=== PATIENT | female | born 1950 | race Caucasian/White ===

== ENCOUNTER → 2018-05-22 17:00 | Outpatient (CLI) | payer MEDICARE, BC, SELFPAY ==
[2015-08-28 18:08] VITALS: BMI 49.9
--- NOTE | 2018-05-22 17:00 | LES_PTH ---
PATIENT: RAMON VELA LOC: [facility] U#:[id number] AGE/SX: 74/F ROOM: RE05/22/[address]: Dr. Gautam Horn MD : [id number] BED: DIS: SPEC #: [id number] RECD: 05/23/18 10:46 STATUS: BOBBY JONNA #: [id number] RAGHU: 05/22/18 17:[address]: Gautam Horn DEPT: SURGICAL PATHOLOGY RECD BY: Robert Gan ENTERED: 05/23/18 11:52 SP TYPE: Lesion OTHR DR: Dr. Liam Long III, MD Tissues: Skin of eyelid, NOS Procedures: Surgery Specimen Level IV HEADER OPERATION: Left lower lid lesion excision PRE-OP DIAGNOSIS: Rule out basal cell carcinoma TISSUE SUBMITTED: Left lower eyelid marginal lesion MICROSCOPIC DIAGNOSIS Lesion of left lower eyelid margin, biopsy: Basal cell carcinoma. Demodex follicularis. AM:beto 05/25/18 COMMENT The lesion appears to have been incompletely excised in the planes examined. Case has been reviewed in consultation with Dr. Clay who concurs with the above diagnosis. IDC:PAKO MICROSCOPIC DESCRIPTION Slides are reviewed. GROSS DESCRIPTION Received in fixative is one container labeled with the patient's name and designated left lower lid. The specimen consists of a piece of brown skin measuring 0.3 x 0.2 x 0.1 cm. The specimen is totally submitted in one cassette. / PAKO:beto 05/23/18 TC:0 CPT: 01425
== END ==
PROVIDERS: Family Provider Family Medicine; PCP Family Medicine; Referring Provider Ophthalmology; Visit Provider Ophthalmology
DX: L98.8 Other specified disorders of the skin and subcutaneous tissue (principal)
CPT/HCPCS: 88305

== ENCOUNTER 2021-05-01 13:34 | Inpatient (IN) | payer MEDICARE, BC, SELFPAY ==
[2021-05-01] VITALS (17 sets, daily range): BP systolic 124–183; BP diastolic 61–118; PULSE 74–92; RESP 12–20; TEMP 35.6–36.6; O2SAT 91–100; BMI 53.6; BMI 50.1; BMI 54.6
[2021-05-01 14:01] LABS: Bedside Glucose 18 mg/dL (70-110)
--- NOTE | 2021-05-01 14:08 | EX.ED.DYSGE1 ---
HPI History of Present Illness Chief Complaint: Hypoglycemia Narrative Narrative: Patient presents with reported mental status change, difficulty speaking, confusion, and symptoms of fatigue. Her friend states that she was on the phone with her at 930 this morning, and patient seemed very tired, and had difficulty finding words. She denies any headache. Of note, she is a diabetic who takes Metformin, glimepiride, and her new physician recently started her on Trulicity for blood sugars in the 200s to 400s. She states that she did feel like eating this morning and barely ate last night. Her sugars were in the 40s. Per RN, upon arrival to the ED, her blood glucose is 18 but she is awake and talking. [facility] Medical History (Updated 05/01/21 @ 16:[address] Shari Sharma DO) Diabetes Diabetic neuropathy Hypertension Morbid obesity Osteoarthritis Urinary incontinence Home Medications dulaglutide [Trulicity] 1.5 mg SUBCUT QWEEK 05/01/21 [History Last Taken Unknown] furosemide [Lasix] 20 mg PO DAILY 05/01/21 [History Last Taken Unknown] gabapentin 300 mg PO BID 05/01/21 [History Last Taken Unknown] glimepiride 4 mg PO BID 05/01/21 [History Last Taken Unknown] hydrochlorothiazide 25 mg PO DAILY 05/01/21 [History Last Taken Unknown] losartan 100 mg PO DAILY 05/01/21 [History Last Taken Unknown] meloxicam 15 mg PO DAILY 05/01/21 [History Last Taken Unknown] metformin 1,000 mg PO BID 05/01/21 [History Last Taken Unknown] metoprolol tartrate 50 mg PO DAILY 05/01/21 [History Last Taken Unknown] pioglitazone 45 mg PO DAILY 05/01/21 [History Last Taken Unknown] tolterodine 4 mg PO Q24H 05/01/21 [History Last Taken Unknown] Allergy/AdvReac Type Severity Reaction Status Date / Time latex Allergy Rash Verified 05/01/21 13:35 nickel [Nickel] Allergy Rash Verified 05/01/21 13:35 Family History (Updated 05/01/21 @ 16:[address] Shari Sharma DO) Other Diabetes Hypertension Social History (Updated 05/01/21 @ 16:[address] Shari Sharma DO) Smoking Status: Never smoker alcohol intake: current alcohol intake frequency: 0-2 drinks per day substance use type: does not use ROS ROS ED ROS Narrative Constitutional: No fever, no chills. Positive fatigue, positive tiredness. HEENT: No sore throat. No neck pain. No loss of vision. No rhinorrhea. Cardiovascular: No chest pain. No palpitations. No pedal edema. Respiratory: No cough, no shortness of breath. Abdominal: No abdominal pain. Positive nausea. No vomiting. Genitourinary: No dysuria. No hematuria. Urinary frequency. Musculoskeletal: No myalgias. No arthralgias. Neurologic: No headaches. No dizziness. No lightheadedness. Reported confusion. Skin: No rash. No change in color. Psychiatric: No depression. No anxiety. EXAM Physical Exam Narrative Exam Narrative: Afebrile. Vital signs noted. HEENT: Normocephalic. Atraumatic. PERRL, EOMI. Neck soft and supple. No point tenderness or step off. Cardiovascular: Regular rate and rhythm. No murmurs, rubs, or gallops appreciated. Respiratory: No tachypnea. Lungs clear to auscultation bilaterally. Gastrointestinal: Abdomen soft, nontender, with normoactive bowel sounds. No rebound or guarding. Neurological: Awake. Alert. Oriented x3. Nonfocal, nonlateralizing. Skin: No rash. Normal color. No pallor. Musculoskeletal: No pedal edema. Full range of motion extremities. Const Vital Signs: 05/01/21 13:36 05/01/21 14:01 05/01/21 14:18 Temperature 96.0 F L 97.0 F L Temperature Source Temporal Pulse Rate 74 Respiratory Rate 18 16 Respiratory Effort Normal Respiratory Pattern Normal Blood Pressure 164/74 H Blood Pressure Mean 104 Pulse Ox 100 Oxygen Delivery Method Room Air MDM MDM MDM Narrative Medical decision making narrative: I feel with the patient's addition of Trulicity, this is causing her hyperglycemia in addition to her oral medication. She states she last received Trulicity 2 days ago. She has normal white count of 9.4, hemoglobin 11.9, hematocrit 35.8. She has normal platelet count. Her CMP shows dehydration with a sodium of 128, chloride 88, potassium elevated at 5.9, but this may be secondary to her acute renal failure with a creatinine of 8.0. BUN is elevated at 81. Her fexzz-hh-[id number] glucose was 18. Her blood was drawn prior to administration of D50 and shows a glucose of 44. [id number] glucose after D50 is in the 70s. She was given a regular diet. Upon repeat examination, she remains awake and alert, and states that she had decreased urination yesterday while she usually has urinary frequency. Given her hyperkalemia, I obtained an EKG which demonstrates normal sinus rhythm at [address] changes. Patient was discussed with the hospitalist. Given her acute renal failure, dehydration, and mild hyperkalemia, she would like a Barros catheter placed and patient admitted to the ICU. She is in guarded but stable condition. Disposition is admit. Lab Data Attestation: I reviewed the patient's lab results. Labs: Laboratory Results - last 24 hr 05/01/21 05/01/21 05/01/21 13:33 13:33 13:48 WBC 9.4 RBC 4.08 L Hgb 11.9 L Hct 35.8 L MCV 87.7 MCH 29.2 MCHC 33.2 RDW Std Deviation 42.2 RDW Coeff of Raheel 13.2 Plt Count 199 MPV 10.3 Immature Gran % (Auto) 0.600 Neut % (Auto) 83.8 H Lymph % (Auto) 11.8 L [place] % (Auto) 3.2 Eos % (Auto) 0.4 Baso % (Auto) 0.2 Absolute Neuts (auto) 7.9 H Absolute Lymphs (auto) 1.11 Nucleated RBC % 0 Sodium 128 L Potassium 5.9 H Chloride 88 L Carbon Dioxide 26.0 Anion Gap 14 BUN 81 H Creatinine 8.02 H* Estim Creat Clear Calc 6.28 Est GFR (MDRD) Af Amer 6 L Est GFR (MDRD) Non-Af 5 L BUN/Creatinine Ratio 10.1 Glucose 44 L* Calcium 10.6 H Total Bilirubin 0.30 AST 16 ALT 24 Alkaline Phosphatase 87 Total Protein 7.7 Albumin 3.5 Globulin 4.2 Albumin/Globulin Ratio 0.8 L POC Glucose 18 L* 05/01/21 05/01/21 05/01/21 14:10 14:36 15:50 WBC RBC Hgb Hct MCV MCH MCHC RDW Std Deviation RDW Coeff of Raheel Plt Count MPV Immature Gran % (Auto) Neut % (Auto) Lymph % (Auto) [place] % (Auto) Eos % (Auto) Baso % (Auto) Absolute Neuts (auto) Absolute Lymphs (auto) Nucleated RBC % Sodium Potassium Chloride Carbon Dioxide Anion Gap BUN Creatinine Estim Creat Clear Calc Est GFR (MDRD) Af Amer Est GFR (MDRD) Non-Af BUN/Creatinine Ratio Glucose Calcium Total Bilirubin AST ALT Alkaline Phosphatase Total Protein Albumin Globulin Albumin/Globulin Ratio POC Glucose 69 L 70 62 L Radiography Diagnostic Testing: Clinical Impression(s) from Imaging Studies Renal Ultrasound 05/01/21 15:33 IMPRESSION: 1. Normal sonographic appearance of both kidneys without evidence of solid or cystic masses, calcifications or obstructive uropathy. 2. Bladder is not well visualized, Barros catheter in place and bladder is decompressed. 3. Incidental note of diffuse fatty infiltration of the liver consistent with hepatic steatosis. No ascites noted.. Electronically Signed: Jose G Vivar MD at 18:26 EST Tel , Service support , Critical Care Time Critical Care Time: Yes Critical care time (excluding procedures): 30-74 minutes (31), Including time spent:, Discussing w/Patient &/or Family/[employer], Discussing w/Consultants and Arranging Admission or Transfer Discharge Plan Dx/Rx/DC Orders Clinical Impression: Hypoglycemia associated with diabetes, Acute renal failure, Acute hyperkalemia Disposition Disposition: [facility] Discharge Date/Time: 05/01/21 16:45
[2021-05-01 14:20] LABS: Bedside Glucose 69 mg/dL (70-110)
[2021-05-01] MEDS: Dextrose 50%-Water 25 GM/50 ML DISP.SYRIN IV ×2 (14:21→16:14)
[2021-05-01 14:32] LABS: Absolute Lymphocyte Count 1.11 X10^3/uL (0.83-4.51); Absolute Neutrophil Count 7.9 X10^3/uL (2.0-7.7); Basophil# 0.02 X10^3/uL; Basophil% 0.2 % (0-1); Eosinophil# 0.04 X10^3/uL; Eosinophils% 0.4 % (0-5); Hematocrit 35.8 % (37-47); Hemoglobin 11.9 g/dL (12.0-15.0); Lymphocyte # 1.11 X10^3/ul (0.83-4.51); Lymphocyte % 11.8 % (19-41); Mean Corp Hgb Conc 33.2 g/dL (32-36); Mean Corpuscular Hgb 29.2 pg (27.0-32.0); Mean Corpuscular Volume 87.7 fL (81-99); Mean Platelet Vol. 10.3 fl (6.2-12.0); Monocyte% 3.2 % (0-10); NRBC Flagged by Analyzer 0 % (0-5); Neutrophil # 7.86 X10^3/uL (2.7-7.7); Neutrophil % 83.8 % (47-70); Platelet Count 199 K/mm3 (150-450); RBC Distribution Width CV 13.2 % (11.6-14.6); RBC Distribution Width SD 42.2 fl (35.1-43.9); Red Blood Count 4.08 M/mm3 (4.2-5.4); White Blood Count 9.4 K/mm3 (4.4-11.0)
[2021-05-01 14:41] LABS: Bedside Glucose 70 mg/dL (70-110)
[2021-05-01 14:49] LABS: ALB/GLOB Ratio 0.8 RATIO (0.9-2.4); AST(SGOT) 16 U/L (15-37); Alanine Aminotransfer ALT/SGPT 24 U/L (13-56); Albumin, Serum 3.5 g/dL (3.2-5.0); Alkaline Phosphatase 87 U/L (45-117); Anion Gap 14 (5-15); BUN 81 mg/dL (7-18); BUN/Creat Ratio 10.1 RATIO (10-20); Calcium,Total 10.6 mg/dL (8.5-10.1); Chloride 88 mmol/L (98-107); Creatinine, Serum 8.02 mg/dL (0.55-1.02); EST Glomerular Filtration Rate 5 mL/min (>60); Est Glom Filt Rate - Afr Amer 6 mL/min (>60); Estimated Creatinine Clearance 6.28 ml/min; Globulin 4.2 g/dL (2.2-4.2); Glucose 44 mg/dL (74-106); Potassium 5.9 mmol/L (3.5-5.1); Protein, Total 7.7 g/dL (6.4-8.2); Sodium Level 128 mmol/L (136-145)
--- NOTE | 2021-05-01 14:59 | EKG12_ITS ---
Test Reason : HYPOGLYCEMIA Blood Pressure : / mmHG Vent. Rate : 078 BPM Atrial Rate : 078 BPM P-R Int : 196 ms QRS Dur : 102 ms QT Int : 400 ms P-R-T Axes : 056 047 033 degrees QTc Int : 456 ms Normal sinus rhythm Normal ECG Confirmed by GELA GAMINO, TASHI ([id number]), editorial manager ADRIÁN MERCER ([id number]) on 05/04/2021 11:32:10 AM Referred By: TOMMY Confirmed By:TASHI REN MD
--- NOTE | 2021-05-01 15:33 | US_ITS ---
INDICATION: LUISA EXAMINATION: Ultrasound US Kidney(s) complete (eg, kidneys and bladder) TECHNIQUE: Spangler scale and color doppler images were obtained of the kidneys. COMPARISON: None. FINDINGS: RIGHT KIDNEY: RIGHT kidney measures 10.9 x 5.5 x 5.2 cm. There is no hydronephrosis. No shadowing calculus, focal lesion or perinephric collection is demonstrated. LEFT KIDNEY: LEFT kidney measures 12.2 x 4.9 x 6.1 cm. There is no hydronephrosis. No shadowing calculus, focal lesion or perinephric collection is demonstrated. URINARY BLADDER: Imaging bladder is not included. By technologist note, Barros catheter is in place and the bladder was decompressed. Ureteral jets were not reported. Other: Incidental note of diffuse fatty infiltration of the visualized liver. US/Kidney and Bladder IMPRESSION: 1. Normal sonographic appearance of both kidneys without evidence of solid or cystic masses, calcifications or obstructive uropathy. 2. Bladder is not well visualized, Barros catheter in place and bladder is decompressed. 3. Incidental note of diffuse fatty infiltration of the liver consistent with hepatic steatosis. No ascites noted.. Electronically Signed: Jose G Vivar MD at 18:26 EST Tel , Service support ,
--- NOTE | 2021-05-01 15:38 | PCM.HP.STD ---
HPI - General General Date of Admission: 05/01/21 Date of Service: 05/01/21 HPI Narrative RAMON VELA, is a 70 F who presented to the emergency department [facility] on 05/01/2021 with a chief complaint of hypoglycemia. Evidently this morning she was on the phone with a friend and she seemed very tired and had difficulty with word finding which is very atypical for her. The patient reports that yesterday she started having some blood sugar issues and noted she was in the 40s and had called her physician and some adjustments have been made but when her sugars were maintained in the 40s she decided to present to the emergency department. Her fingerstick blood sugar on arrival to the emergency department was 18 but she was awake and talking so I doubt that was an accurate test. Her BNP showed a serum blood sugar of 44 and she was given an amp of D50. This corrected her blood sugar into the 70s. Her vital signs in the emergency department were overall unremarkable other than elevated blood pressure with a measurement of 164/74. Her ECG is overall unremarkable other than some mild anemia. Her BMP however is quite abnormal with a sodium of 128, a potassium of 5.9, a chloride of 88, a BUN of 81, a creatinine of 8.02, a glucose of 44, and calcium of 10.6. Her liver functions are within normal limits. Her EKG shows some mild peaking diffusely. Her predominant complaints include mental status change, word finding difficulties, and fatigue along with her hypoglycemia. I called her primary care's office to ascertain what her baseline serum creatinine is as the patient tells me she has CKD stage III and her most recent serum creatinine from 04/06/2021 showed a baseline of 1.38. Her hemoglobin A1c on 03/30/2021 was 8.5. Given her severe kidney injury, need for frequent lab draw, and marked hypoglycemia she was admitted to the ICU for further care. [facility] Medical History (Updated 05/01/21 @ 16:[address] Shari Sharma DO) Diabetes Diabetic neuropathy Hypertension Morbid obesity Osteoarthritis Urinary incontinence Home Medications dulaglutide [Trulicity] 1.5 mg SUBCUT QWEEK 05/01/21 [History Last Taken Unknown] furosemide [Lasix] 20 mg PO DAILY 05/01/21 [History Last Taken Unknown] gabapentin 300 mg PO BID 05/01/21 [History Last Taken Unknown] glimepiride 4 mg PO BID 05/01/21 [History Last Taken Unknown] hydrochlorothiazide 25 mg PO DAILY 05/01/21 [History Last Taken Unknown] losartan 100 mg PO DAILY 05/01/21 [History Last Taken Unknown] meloxicam 15 mg PO DAILY 05/01/21 [History Last Taken Unknown] metformin 1,000 mg PO BID 05/01/21 [History Last Taken Unknown] metoprolol tartrate 50 mg PO DAILY 05/01/21 [History Last Taken Unknown] pioglitazone 45 mg PO DAILY 05/01/21 [History Last Taken Unknown] tolterodine 4 mg PO Q24H 05/01/21 [History Last Taken Unknown] Allergy/AdvReac Type Severity Reaction Status Date / Time latex Allergy Rash Verified 05/01/21 13:35 nickel [Nickel] Allergy Rash Verified 05/01/21 13:35 Family History (Updated 05/01/21 @ 16:[address] Shari Sharma DO) Other Diabetes Hypertension unable to obtain Social History (Updated 05/01/21 @ 16:[address] Shari Sharma DO) Smoking Status: Never smoker alcohol intake: current alcohol intake frequency: 0-2 drinks per day substance use type: does not use ROS Constitutional Constitutional: Reports anorexia, fatigue, malaise and weakness; Denies change in weight, chills, fever(s), night sweats or other Eyes Eyes: Denies blurry vision, change in eye color, change in vision, discharge from eye(s), double vision, erythema, eye pain, loss of vision or other ENT HEENT: Denies abnormal hearing, dysphagia, ear pain, epistaxis, headache(s), hearing loss, nasal congestion, nasal discharge, post nasal drip, sinus pressure, sore throat or other Cardiovascular Cardiovascular: Reports edema; Denies chest pain, claudication, dyspnea on exertion, lightheadedness, orthopnea, palpitations, paroxysmal nocturnal dyspnea, rapid heart rate, syncope or other Respiratory/Chest Respiratory/Chest: Denies cough, dyspnea, excessive phlegm production, hemoptysis, productive cough, shortness of breath at rest, shortness of breath with exertion, wheezing or other Gastrointestinal Gastrointestinal: Denies abdominal pain, coffee ground emesis, constipation, diarrhea, dyspepsia, hematemesis, hematochezia, loose stools, melena, nausea, vomiting or other Genitourinary Genitourinary: Reports urinary incontinence and other Details: Decreased urinary output ; Denies burning urination, difficulty urinating, dysuria, hematuria, nocturia, urinary frequency, urinary hesitancy or urinary urgency Musculoskeletal Musculoskeletal: Reports arthralgias, back pain, joint pain and joint stiffness; Denies joint swelling, myalgias, neck pain or other Neurologic Neurologic: Reports confusion; Denies abnormal gait, abnormal speech, disequilibrium, dizziness, focal weakness, headache(s), numbness, paresthesias, seizure-like activity, seizures, syncope, tingling, tremor(s) or other Psychiatric Psychiatric: Denies anxiety, depression, homicidal ideation, suicidal ideation or other Endocrine Endocrinology: Denies change in body appearance, cold intolerance, excessive sweating, heat intolerance, polydipsia, polyuria or other Hematologic/Lymphatic Hematologic/Lymphatic: Denies anemia, easy bleeding, easy bruising, lymphadenopathy or other Allergic/Immunologic Allergic/Immunologic: Denies rhinitis, hives, eczemia, asthma or other Vital Signs Vital Signs Vital Signs: 05/01/21 13:36 05/01/21 14:01 05/01/21 14:18 Temperature 96.0 F L 97.0 F L Temperature Source Temporal Pulse Rate 74 Respiratory Rate 18 16 Respiratory Effort Normal Respiratory Pattern Normal Blood Pressure 164/74 H Blood Pressure Mean 104 Pulse Ox 100 Oxygen Delivery Method Room Air Weight Weight: 141 kg Body Mass Index (BMI) 50.1 Physical Exam Const alert, oriented x3 and no apparent distress Constitutional Narrative: Morbidly obese white female lying in bed, appears comfortable but mildly confused, friend at bedside, nontoxic General Appearance: cooperative HEENT normocephalic, head/scalp atraumatic and hearing grossly normal bilaterally HEENT Narrative: Dry mucous membranes, Mallampati 2-3, no thrush, good dentition Eyes PERRL, EOMs intact bilaterally and conjunctivae normal Eyes Narrative: No scleral icterus Neck no lymphadenopathy, supple and no JVD Neck Narrative: Trachea midline, no thyroid enlargement Resp normal respiratory effort, no retractions, no use of accessory muscles and clear to auscultation bilaterally Auscultation: Negative for crackles, rales, rhonchi or wheezes Cardio regular rate, regular rhythm, S1 normal heart sound, S2 normal heart sound, no murmurs, no rub, no gallops, no clicks and no JVD Cardio Narrative: Distant secondary to body habitus GI normal to inspection, nondistended, normoactive bowel sounds, soft to palpation, non-tender and non-distended Extremity Extremity Narrative: Bilateral lower extremity 1+ pitting edema, no clubbing or cyanosis Peripheral Pulses: Yes pulses 2+ throughout Skin no rashes or lesions noted, no wounds, skin turgor normal, no jaundice, no petechiae and no mottling Skin Narrative: Skin is dry but no lesions Neuro oriented x3, CN's II-XII intact bilaterally, moves all extremities and no focal motor deficits Neuro Narrative: Mild confusion but oriented x3, generalized weakness with no focal deficit Sensorium / Orientation: awake and alert Speech: speech normal Psych Mood & Affect: anxious Results Lab / Micro Data Attestation: I reviewed the patient's lab results. Result Diagrams: 05/01/21 13:33 05/01/21 13:33 Labs: Laboratory Results - last 24 hr 05/01/21 13:33: WBC 9.4, RBC 4.08 L, Hgb 11.9 L, Hct 35.8 L, MCV 87.7, MCH 29.2, MCHC 33.2, RDW Std Deviation 42.2, RDW Coeff of Raheel 13.2, Plt Count 199, MPV 10.3, Immature Gran % (Auto) 0.600, Neut % (Auto) 83.8 H, Lymph % (Auto) 11.8 L, [place] % (Auto) 3.2, Eos % (Auto) 0.4, Baso % (Auto) 0.2, Absolute Neuts (auto) 7.9 H, Absolute Lymphs (auto) 1.11, Nucleated RBC % 0 05/01/21 13:33: Sodium 128 L, Potassium 5.9 H, Chloride 88 L, Carbon Dioxide 26.0, Anion Gap 14, BUN 81 H, Creatinine 8.02 H*, Estim Creat Clear Calc 6.28, Est GFR (MDRD) Af Amer 6 L, Est GFR (MDRD) Non-Af 5 L, BUN/Creatinine Ratio 10.1, Glucose 44 L*, Calcium 10.6 H, Total Bilirubin 0.30, AST 16, ALT 24, Alkaline Phosphatase 87, Total Protein 7.7, Albumin 3.5, Globulin 4.2, Albumin/Globulin Ratio 0.8 L 05/01/21 13:48: POC Glucose 18 L* 05/01/21 14:10: POC Glucose 69 L 05/01/21 14:36: POC Glucose 70 Assessment & Plan Assessment/Plan (1) Acute renal failure: (2) Metabolic encephalopathy: (3) Acute hyperkalemia: (4) Hypoglycemia associated with diabetes: (5) Hypercalcemia: PLAN: LUISA on CKD stage IIIb -Baseline serum creatinine per discussion with PCP office from 04/06/2021 was 1.38 -Current serum creatinine is 8.02 -Requested Barros placement in the emergency department -Normal saline at 150 cc/h along with D10 at 50 cc/h -Check renal ultrasound -Check urine sodium, urea, creatinine, eosinophils -Hold Lasix, meloxicam -Hold all diabetes meds -Renal diet ordered -Consult nephrology--> no current need for renal replacement therapy at this time Hyperkalemia -Mild EKG changes with peaked T waves -Patient was given dextrose -Give Kayexalate x1 dose -Repeat lab every 4 hours -Nephrology consult pending Metabolic encephalopathy -Likely related to uremia, gabapentin, and hypoglycemia -Hold offending agents and correct renal failure and blood sugar Hypoglycemia -Suspect this is related to multiple oral agents and severe LUISA -Hold all oral agents -Every 1 hour blood sugar checks -D10 at 50 cc/h -She has received treatment with 1.5 A of D50 in the emergency department -Once patient is stable with regards to blood sugar will wean dextrose and then reinitiate diabetic therapy -Carb controlled diet ordered Electrolyte abnormalities -Likely related to LUISA -Including hyponatremia, hypochloremia, and hypercalcemia -Every 4 hour lab Hypertension -Hold losartan -Hold Lasix -Continue mental wall -As needed hydralazine Uncontrolled DM-2 -Most recent hemoglobin A1c was 8.5 on 03/30/2021 -Given hypoglycemia no treatment at this time -Every hour blood sugar assessments -We will initiate sliding scale insulin once blood sugars have stabilized and the patient is off dextrose infusion Chronic pain -Hold meloxicam -Tylenol Morbid obesity -Recommend weight loss -Complicates overall treatment, prognosis, outcomes -Would recommend outpatient sleep study DVT prophylaxis -Heparin 3 times daily -SCDs CODE STATUS -Full code Charges/Coding Visit Charges Inpatient E&M: 67007 Init Hosp L3
[2021-05-01 15:55] LABS: Bedside Glucose 62 mg/dL (70-110)
[2021-05-01 16:12] LABS: Mucous, Urine 0 SEEN /hpf (<or=2+)
[2021-05-01 16:33] LABS: Urea Nitrogen, Urine 160 mg/dL (NO RANGE EST.); Urine Sodium 50 mmol/L (Not Establ.)
[2021-05-01 16:38] LABS: Color, Urine Yellow (Yellow); Glucose, Dipstick Normal (Normal); Ketone-Dipstick 5 mg/dl (Negative); Leukocyte Esterase-Dipstick 500 /ul (Negative); Nitrite-Dipstick Positive (Negative); Occult Blood-Urine 50 /ul (Negative); Protein-Dipstick 100 mg/dl (Negative); Urine Bilirubin Dipstick Negative (Negative); Urine Clarity Sl. Cloudy (Clear); Urine Urobilinogen Normal (Normal)
[2021-05-01 16:58] LABS: Bacteria 1+ /hpf (None Seen); Red Blood Cells-Urine 0-5 SEEN /hpf (0-5); Squamous Epithelial Cells - UA 10-25 SEEN /hpf (5-10); White Blood Cells 25-50 SEEN /hpf (0-5)
[2021-05-01] MEDS: 0.9% Normal Saline 1,000 ML 150 ML IV ×2 (17:03→23:03)
[2021-05-01] MEDS: Dextrose 10%-Water 250 ML 50 ML IV ×2 (17:04→22:04)
[2021-05-01 17:05] LABS: Bedside Glucose 78 mg/dL (70-110)
[2021-05-01] MEDS: Sodium Polystyrene Sulfonate 15 GM/60 ML UDC 30 GM PO (18:12)
[2021-05-01 18:16] LABS: Bedside Glucose 62 mg/dL (70-110)
[2021-05-01 19:21] LABS: Bedside Glucose 76 mg/dL (70-110)
[2021-05-01] MEDS: Heparin Injection (Vial) 5,000 UNIT/ML VIAL 5000 UNIT SC (21:10)
[2021-05-01 22:11] LABS: Bedside Glucose 99 mg/dL (70-110)
[2021-05-01 22:11] LABS: Bedside Glucose 77 mg/dL (70-110)
[2021-05-01] MEDS: Acetaminophen 325 MG Tablet 650 MG PO (23:01)
[2021-05-02] VITALS (25 sets, daily range): BP systolic 124–197; BP diastolic 60–114; PULSE 79–86; RESP 11–22; TEMP 36.6–37.5; O2SAT 79–99
[2021-05-02] MEDS: Lidocaine 5% Patch 2 PATCH TOPICAL ×2 (00:11→21:53)
[2021-05-02 00:20] LABS: Bedside Glucose 139 mg/dL (70-110)
[2021-05-02 00:20] LABS: Bedside Glucose 123 mg/dL (70-110)
[2021-05-02 00:59] LABS: Anion Gap 13 (5-15); BUN 85 mg/dL (7-18); BUN/Creat Ratio 10.2 RATIO (10-20); Calcium,Total 9.1 mg/dL (8.5-10.1); Chloride 90 mmol/L (98-107); Creatinine, Serum 8.31 mg/dL (0.55-1.02); EST Glomerular Filtration Rate 5 mL/min (>60); Estimated Creatinine Clearance 5.36 ml/min; Glucose 156 mg/dL (74-106); Sodium Level 127 mmol/L (136-145)
[2021-05-02 01:00] LABS: Est Glom Filt Rate - Afr Amer 6 mL/min (>60)
[2021-05-02] MEDS: Calcium Chloride 1 GM/10 ML Syringe IV (03:58)
[2021-05-02] MEDS: Sodium Polystyrene Sulfonate 15 GM/60 ML UDC 30 GM PO (03:58)
[2021-05-02] MEDS: Polyethylene Glycol 3350 17 GM PACKET 34 GM PO (03:59)
[2021-05-02 04:21] LABS: Absolute Lymphocyte Count 1.16 X10^3/uL (0.83-4.51); Absolute Neutrophil Count 5.6 X10^3/uL (2.0-7.7); Basophil# 0.02 X10^3/uL; Basophil% 0.3 % (0-1); Eosinophil# 0.08 X10^3/uL; Eosinophils% 1.1 % (0-5); Hematocrit 31.9 % (37-47); Hemoglobin 10.6 g/dL (12.0-15.0); Lymphocyte # 1.16 X10^3/ul (0.83-4.51); Lymphocyte % 15.6 % (19-41); Mean Corp Hgb Conc 33.2 g/dL (32-36); Mean Corpuscular Hgb 29.3 pg (27.0-32.0); Mean Corpuscular Volume 88.1 fL (81-99); Mean Platelet Vol. 9.5 fl (6.2-12.0); Monocyte# 0.52 X10^3/uL; NRBC Flagged by Analyzer 0 % (0-5); Neutrophil # 5.63 X10^3/uL (2.7-7.7); Neutrophil % 75.6 % (47-70); Platelet Count 177 K/mm3 (150-450); RBC Distribution Width CV 13.3 % (11.6-14.6); RBC Distribution Width SD 42.7 fl (35.1-43.9); Red Blood Count 3.62 M/mm3 (4.2-5.4); White Blood Count 7.4 K/mm3 (4.4-11.0)
[2021-05-02 04:39] LABS: Phosphorus 7.1 mg/dL (2.5-4.9)
[2021-05-02 04:59] LABS: ALB/GLOB Ratio 0.7 RATIO (0.9-2.4); AST(SGOT) 12 U/L (15-37); Alanine Aminotransfer ALT/SGPT 20 U/L (13-56); Albumin, Serum 2.8 g/dL (3.2-5.0); Alkaline Phosphatase 90 U/L (45-117); Anion Gap 15 (5-15); BUN 81 mg/dL (7-18); BUN/Creat Ratio 9.5 RATIO (10-20); Calcium,Total 8.7 mg/dL (8.5-10.1); Chloride 89 mmol/L (98-107); Creatinine, Serum 8.55 mg/dL (0.55-1.02); EST Glomerular Filtration Rate 5 mL/min (>60); Est Glom Filt Rate - Afr Amer 6 mL/min (>60); Estimated Creatinine Clearance 5.21 ml/min; Globulin 3.8 g/dL (2.2-4.2); Glucose 113 mg/dL (74-106); Potassium 5.4 mmol/L (3.5-5.1); Protein, Total 6.6 g/dL (6.4-8.2); Sodium Level 128 mmol/L (136-145); Thyroid Stim Hormone (TSH) 2.21 uIU/mL (0.358-3.74)
[2021-05-02] MEDS: Heparin Injection (Vial) 5,000 UNIT/ML VIAL 5000 UNIT SC ×3 (05:03→21:53)
[2021-05-02] MEDS: Labetalol (Prefilled) 20 MG/4 ML 10 MG IV (05:03)
[2021-05-02] MEDS: 0.9% Normal Saline 1,000 ML 150 ML IV (05:03)
[2021-05-02 08:36] LABS: Bedside Glucose 110 mg/dL (70-110)
[2021-05-02] MEDS: Ondansetron 4 MG/2 ML Vial IV (08:42)
[2021-05-02] MEDS: Acetaminophen 325 MG Tablet 650 MG PO ×3 (08:51→21:53)
[2021-05-02] MEDS: 0.9% Normal Saline 1,000 ML 75 ML IV (10:21)
[2021-05-02] MEDS: Tolterodine Tartrate 4 MG CAP.SA PO (10:22)
[2021-05-02] MEDS: Metoprolol(XL)Succ 50 MG Tablet PO (10:22)
[2021-05-02] MEDS: Ceftriaxone 1 GM/50 ML BAG IV (10:32)
[2021-05-02 10:41] LABS: Bedside Glucose 132 mg/dL (70-110)
--- NOTE | 2021-05-02 11:45 | CASEMGMT ---
GERSON ENGLISH Assessment: Face to Face with pt for initial transition planning/care coordination assessment. GERSON ENGLISH introduced self and role at [facility], pt voices understanding and consents to assessment. Pt is A/O x4 and answers all questions appropriately at this time. Pt sitting up in bed with O2 on with eyes closed throughout assessment in no distress. Care providers, pharmacy, and demographics verified/updated. Admitting Dx: acute renal failure PCP:Mary Specialists:Lisette, endocrinology in [place]; Pedro, cardio Preferred Pharmacy: [facility] [employer] [facility] Benef[facility]: yes LW/HPOA: Pt states she has a DPOA and it is her dtr Vidya Turk. She is aware that it is not on file at [facility] but may bring in at any time to be scanned into the chart. LNOK: Vidya Turk, dtr Living Arrangements: Pt lives alone in a single story house with a couple of steps to enter. Pt reports she is I in ADL's and denies concerns at home. Transportation: Pt drives self and denies concerns with transportation. DME/HHC/SNF: Pt has a cane and walker that she does not use. Pt currently is using crutches as she states she needs her knees replaced. Pt has a BGM. She states she has enough lancets and strips. Pt states she checks her blood sugar once a day but was told to increase to twice a day. Pt has had HHC in the past but is unsure what the name of the agency is. She denies SNF stays. Pt states no concerns with going home at time of dc. At this point in time, pt does not feel she needs any HHC or therapy but will see as she progresses. Pt states no further concerns/needs. CM to follow. Advised pt to ask CM if any further question/concerns/needs arise, voices understanding. Pt Goal: Home Plan: Home
[2021-05-02 12:20] LABS: Bedside Glucose 116 mg/dL (70-110)
[2021-05-02 12:26] LABS: Bedside Glucose 146 mg/dL (70-110)
[2021-05-02 14:26] LABS: Bedside Glucose 134 mg/dL (70-110)
--- NOTE | 2021-05-02 15:15 | PN.HOSP_ITS ---
Subjective Subjective Patient states she feels a little bit bloated today. She reports she slept okay overnight. No significant events overnight. And output is poor with a total of 475 cc since admission. Barros in place. Objective Data Objective Data Vital Signs: Vital Signs Temp Pulse Resp BP Pulse Ox 98.7 F 80 19 H 155/69 H 96 05/02/21 12:00 05/02/21 13:00 05/02/21 13:00 05/02/21 13:00 05/02/21 13:00 Oxygen Flow Rate (L/min) 2 Oxygen Delivery Method Nasal Cannula Weight: 143.9 kg Body Mass Index (BMI) 54.6 Intake & Output: Intake and Output for Last 24 Hours 04/30/21 05/01/21 05/02/21 23:59 23:59 23:59 Intake Total 1250 / 1350 1802.92 / 1802.92 Output Total 50 / 150 425 / 425 Balance 1200 / 1200 1377.92 / 1377.92 Lab / Micro Data Result Diagrams: 05/02/21 04:00 05/02/21 04:00 Labs: Laboratory Results - last 24 hr 05/01/21 15:50: POC Glucose 62 L 05/01/21 16:08: Urine Color Yellow, Urine Clarity Sl. Cloudy, Urine pH 7.0, Ur Specific [place] 1.010, Urine Protein 100 H, Urine Glucose (UA) Normal, Urine Ketones 5 H, Urine Occult Blood 50 H, Urine Nitrite Positive H, Urine Bilirubin Negative, Urine Urobilinogen Normal, Ur Leukocyte Esterase 500 H, Urine RBC 0-5 SEEN, Urine WBC 25-50 SEEN, Ur Squamous Epith Cells 10-25 SEEN, Urine Bacteria 1+, Urine Mucus 0 SEEN 05/01/21 16:08: Urine Color Cancelled, Urine Clarity Cancelled, Urine pH Cancelled, Ur Specific [place] Cancelled, U Specif Grav (Refrac) Cancelled, Urine Protein Cancelled, Urine Glucose (UA) Cancelled, Urine Ketones Cancelled, Urine Occult Blood Cancelled, Urine Nitrite Cancelled, Urine Bilirubin Cancelled, Urine Urobilinogen Cancelled, Ur Leukocyte Esterase Cancelled, Urine RBC Cancelled, Urine WBC Cancelled, Ur Squamous Epith Cells Cancelled, Ur Transition Epith Cell Cancelled, Ur Renal Epithelial Cell Cancelled, Calcium Oxalate Crystal Cancelled, Uric Acid Crystals Cancelled, Triple Phos Crystals Cancelled, Other Crystals Cancelled, Amorphous Sediment Cancelled, Urine Bacteria Cancelled, Hyaline Casts Cancelled, Fine Granular Casts Cancelled, Coarse Granular Casts Cancelled, Waxy Casts Cancelled, RBC Casts Cancelled, WBC Casts Cancelled, Urine Mucus Cancelled, Urine Trichomonas Cancelled, Urine Yeast Cancelled 05/01/21 16:08: Ur Random Sodium 50, Urine Creatinine 27.40, Urine Urea Nitrogen 160 05/01/21 17:02: POC Glucose 78 05/01/21 18:07: POC Glucose 62 L 05/01/21 19:15: POC Glucose 76 05/01/21 20:06: POC Glucose 77 05/01/21 21:12: POC Glucose 99 05/01/21 22:09: POC Glucose 123 H 05/01/21 23:05: POC Glucose 139 H 05/02/21 00:05: Sodium 127 L, Potassium 6.0 H*, Chloride 90 L, Carbon Dioxide 24.0, Anion Gap 13, BUN 85 H, Creatinine 8.31 H*, Estim Creat Clear Calc 5.36, Est GFR (MDRD) Af Amer 6 L, Est GFR (MDRD) Non-Af 5 L, BUN/Creatinine Ratio 10.2, Glucose 156 H, Calcium 9.1 05/02/21 02:04: POC Glucose 116 H 05/02/21 04:00: WBC 7.4, RBC 3.62 L, Hgb 10.6 L, Hct 31.9 L, MCV 88.1, MCH 29.3, MCHC 33.2, RDW Std Deviation 42.7, RDW Coeff of Raheel 13.3, Plt Count 177, MPV 9.5, Immature Gran % (Auto) 0.400, Neut % (Auto) 75.6 H, Lymph % (Auto) 15.6 L, [place] % (Auto) 7.0, Eos % (Auto) 1.1, Baso % (Auto) 0.3, Absolute Neuts (auto) 5.6, Absolute Lymphs (auto) 1.16, Nucleated RBC % 0 05/02/21 04:00: Sodium 128 L, Potassium 5.4 H, Chloride 89 L, Carbon Dioxide 24.0, Anion Gap 15, BUN 81 H, Creatinine 8.55 H*, Estim Creat Clear Calc 5.21, Est GFR (MDRD) Af Amer 6 L, Est GFR (MDRD) Non-Af 5 L, BUN/Creatinine Ratio 9.5 L, Glucose 113 H, Calcium 8.7, Magnesium 3.0 H, Total Bilirubin 0.30, AST 12 L, ALT 20, Alkaline Phosphatase 90, Total Protein 6.6, Albumin 2.8 L, Globulin 3.8, Albumin/Globulin Ratio 0.7 L, TSH 2.21 05/02/21 04:00: Phosphorus 7.1 H 05/02/21 08:23: POC Glucose 110 05/02/21 10:37: POC Glucose 132 H 05/02/21 12:20: POC Glucose 146 H 05/02/21 14:17: POC Glucose 134 H Micro: Microbiology 05/01/21 15:11 Nasal Secretion SARS-CoV-2 Antigen (Rapid) - Final Radiography Diagnostic Testing: Radiology Impression Renal Ultrasound 05/01/21 15:33 IMPRESSION: 1. Normal sonographic appearance of both kidneys without evidence of solid or cystic masses, calcifications or obstructive uropathy. 2. Bladder is not well visualized, Barros catheter in place and bladder is decompressed. 3. Incidental note of diffuse fatty infiltration of the liver consistent with hepatic steatosis. No ascites noted.. Electronically Signed: Jose G Vivar MD at 18:26 EST Tel , Service support , Physical Exam Const alert, oriented x3 and no apparent distress Constitutional Narrative: Morbidly obese white female lying in bed, appears comfortable less confusion, nontoxic General Appearance: cooperative Exam Limitations: no limitations Nutritional Appearance: morbidly obese HEENT normocephalic, head/scalp atraumatic, hearing grossly normal bilaterally and moist oral mucous membranes Head and Scalp: normocephalic Eyes PERRL, EOMs intact bilaterally and conjunctivae normal Eyes Narrative: No scleral icterus Neck no lymphadenopathy, supple and no JVD Neck Narrative: Trachea midline, no thyroid enlargement Resp normal respiratory effort, no retractions, no use of accessory muscles and clear to auscultation bilaterally Resp Narrative: Lungs remain clear Auscultation: Negative for crackles, rales, rhonchi or wheezes Cardio regular rate, regular rhythm, S1 normal heart sound, S2 normal heart sound, no murmurs, no rub, no gallops, no clicks and no JVD Cardio Narrative: Distant secondary to body habitus GI normal to inspection, nondistended, normoactive bowel sounds, soft to palpation, non-tender and non-distended Extremity Extremity Narrative: Bilateral lower extremity 1+ pitting edema, no clubbing or cyanosis Peripheral Pulses: Yes pulses 2+ throughout Skin no rashes or lesions noted, no wounds, skin turgor normal, no jaundice, no petechiae and no mottling Skin Narrative: Skin is dry but no lesions, Barros in place with little urine output Neuro oriented x3, CN's II-XII intact bilaterally, moves all extremities and no focal motor deficits Neuro Narrative: Confusion has improved Sensorium / Orientation: awake and alert Speech: speech normal Psych affect normal Assessment & Plan Assessment/Plan (1) Acute renal failure: (2) Metabolic encephalopathy: (3) Acute hyperkalemia: (4) Hypoglycemia associated with diabetes: (5) Hypercalcemia: PLAN: LUISA on CKD stage IIIb secondary to ATN -Patient is currently only [place] -Baseline serum creatinine per discussion with PCP office from 04/06/2021 was 1.38 -Despite hydration with IV fluids at 150 cc/h and D10 at 50 cc/h serum creatinine has trended up slightly -Continue Barros -Decrease IV fluids to 75 cc/h from 150 cc/h -Renal ultrasound shows normal bilateral kidneys -Fe urea is consistent with intrinsic renal issues at 57.8% -Hold Lasix, meloxicam -Hold all diabetes meds -Renal diet ordered -Awaiting nephrology input Hyperkalemia -Mild EKG changes with peaked T waves in admission -Give Kayexalate x1 dose--> repeat dose again today -Trending down--> 5.9-6.0-5.4 -Repeat BMP in a.m. -Nephrology consult pending Metabolic encephalopathy -Likely related to uremia, gabapentin, and hypoglycemia -Has resolved Hypoglycemia -Suspect this is related to multiple oral agents and severe LUISA -Resolved -D5 10 was discontinued around midnight -Blood sugars are holding steady without any intervention in the 110-150 range -Once blood sugars trending greater than 180 will start sliding scale -Continue Accu-Cheks as ordered Possible UTI -UA is suggestive of possible urinary tract infection with positive le ukoesterase, nitrites, white cells and 1+ bacteria -We will start ceftriaxone and check urine culture Electrolyte abnormalities -Likely related to LUISA -Electrolytes have remained stable -Including hyponatremia, hypochloremia, and hypercalcemia -Repeat BMP in a.m. Hepatic steatosis -This was noted on ultrasound of kidneys -Likely related to metabolic dysfunction -Will need improved control of diabetes and cholesterol -Would recommend consideration for outpatient gastric bypass evaluation Hypertension -Hold losartan -Hold Lasix -Add Norvasc 10 mg -As needed hydralazine Uncontrolled DM-2 -Most recent hemoglobin A1c was 8.5 on 03/30/2021 -Given hypoglycemia no treatment at this time -Every 4 hour blood sugar checks -We will initiate sliding scale insulin once blood sugars are greater than 170 -Currently 1 10-1 40 Chronic pain -Hold meloxicam -Tylenol Morbid obesity -Recommend weight loss -Complicates overall treatment, prognosis, outcomes -Would recommend outpatient sleep study as patient has had hypoxic issues at night and while napping -We will discussed with patient eventual follow-up for potential bariatric intervention DVT prophylaxis -Heparin 3 times daily -SCDs CODE STATUS -Full code Charges/Coding Visit Charges Inpatient E&M: 82893 Init Hosp L3
--- NOTE | 2021-05-02 16:21 | CON.PCM.RE_ITS ---
Assessment & Plan Assessment/Plan (1) Acute renal failure: PLAN: Baseline creatinine prior to admission was around 1.3. Sustained renal failure. Apparently she had poor appetite, continuous nausea for the last 10 days. Admitted with severe hypoglycemia. Possibly dehydration. She was also on Lasix at home which might have contributed. Renal ultrasound is not impressive. Urine analysis does show some cells but this is an oliguric sample. Clinically looks dry. Continue fluids for today. Urine output is somewhat better today, has already made about 450 cc since 7 AM. Hold off dialysis for today. (2) Acute hyperkalemia: PLAN: Due to LUISA. Received medical treatment. Potassium is borderline at 5.4. Will monitor for now Hyponatremia. Possibly hypovolemic. Asymptomatic. Fluid resuscitation for now. HPI Consult Data Date of Consult: 05/02/21 HPI Narrative HPI Narrative: 70 y o female patient admitted to hospital with complaints of weakness. Nephrology consulted for acute renal failure. She has known history of type 2 diabetes which was not very well controlled. Was recently started on Trulicity. This resulted in significant nausea and poor intake for the last 10 days. Yesterday she presented to the emergency room with generalized weakness. Was found to have significant hypoglycemia. Received multiple dextrose infusions. Her baseline creatinine is around 1.3. She has likely from diabetes. Presented with a creatinine of 8.0, slightly higher today. There is meloxicam listed in her medication list but she tells me that she was not taking it regularly. Denies any past history of kidney stones, urine infections. Medication list also has Metformin. No other changes to medications. No recent contrast. [facility] Medical History (Updated 05/01/21 @ 16:[address] Shari Sharma DO) Diabetes Diabetic neuropathy Hypertension Morbid obesity Osteoarthritis Urinary incontinence Home Medications dulaglutide [Trulicity] 1.5 mg SUBCUT QWEEK 05/01/21 [History Last Taken Unknown] furosemide [Lasix] 20 mg PO DAILY 05/01/21 [History Last Taken Unknown] gabapentin 300 mg PO BID 05/01/21 [History Last Taken Unknown] glimepiride 4 mg PO BID 05/01/21 [History Last Taken Unknown] hydrochlorothiazide 25 mg PO DAILY 05/01/21 [History Last Taken Unknown] losartan 100 mg PO DAILY 05/01/21 [History Last Taken Unknown] meloxicam 15 mg PO DAILY 05/01/21 [History Last Taken Unknown] metformin 1,000 mg PO BID 05/01/21 [History Last Taken Unknown] metoprolol tartrate 50 mg PO DAILY 05/01/21 [History Last Taken Unknown] pioglitazone 45 mg PO DAILY 05/01/21 [History Last Taken Unknown] tolterodine 4 mg PO Q24H 05/01/21 [History Last Taken Unknown] Allergy/AdvReac Type Severity Reaction Status Date / Time latex Allergy Rash Verified 05/01/21 13:35 nickel [Nickel] Allergy Rash Verified 05/01/21 13:35 Family History (Updated 05/01/21 @ 16:[address] Shari Sharma DO) Other Diabetes Hypertension Surgical History unable to obtain Social History (Updated 05/01/21 @ 16:[address] Shari Sharma DO) Smoking Status: Never smoker alcohol intake: current alcohol intake frequency: 0-2 drinks per day substance use type: does not use ROS ROS Narrative negative except HPI Physical Exam Narrative Alert awake oriented x 3 no obvious distress no pallor no icterus no JVD s1s2 no murmurs lungs clear abdomen soft no organomegaly no edema no cyanosis garcia + Lab / Micro Data Result Diagrams: 05/02/21 04:00 05/02/21 04:00 Labs: Laboratory Results - last 24 hr 05/01/21 16:08: Urine Color Yellow, Urine Clarity Sl. Cloudy, Urine pH 7.0, Ur Specific [place] 1.010, Urine Protein 100 H, Urine Glucose (UA) Normal, Urine Ketones 5 H, Urine Occult Blood 50 H, Urine Nitrite Positive H, Urine Bilirubin Negative, Urine Urobilinogen Normal, Ur Leukocyte Esterase 500 H, Urine RBC 0-5 SEEN, Urine WBC 25-50 SEEN, Ur Squamous Epith Cells 10-25 SEEN, Urine Bacteria 1+, Urine Mucus 0 SEEN 05/01/21 16:08: Ur Random Sodium 50, Urine Creatinine 27.40, Urine Urea Nitrogen 160 05/01/21 17:02: POC Glucose 78 05/01/21 18:07: POC Glucose 62 L 05/01/21 19:15: POC Glucose 76 05/01/21 20:06: POC Glucose 77 05/01/21 21:12: POC Glucose 99 05/01/21 22:09: POC Glucose 123 H 05/01/21 23:05: POC Glucose 139 H 05/02/21 00:05: Sodium 127 L, Potassium 6.0 H*, Chloride 90 L, Carbon Dioxide 24.0, Anion Gap 13, BUN 85 H, Creatinine 8.31 H*, Estim Creat Clear Calc 5.36, Est GFR (MDRD) Af Amer 6 L, Est GFR (MDRD) Non-Af 5 L, BUN/Creatinine Ratio 10.2, Glucose 156 H, Calcium 9.1 05/02/21 02:04: POC Glucose 116 H 05/02/21 04:00: WBC 7.4, RBC 3.62 L, Hgb 10.6 L, Hct 31.9 L, MCV 88.1, MCH 29.3, MCHC 33.2, RDW Std Deviation 42.7, RDW Coeff of Raheel 13.3, Plt Count 177, MPV 9.5, Immature Gran % (Auto) 0.400, Neut % (Auto) 75.6 H, Lymph % (Auto) 15.6 L, [place] % (Auto) 7.0, Eos % (Auto) 1.1, Baso % (Auto) 0.3, Absolute Neuts (auto) 5.6, Absolute Lymphs (auto) 1.16, Nucleated RBC % 0 05/02/21 04:00: Sodium 128 L, Potassium 5.4 H, Chloride 89 L, Carbon Dioxide 24.0, Anion Gap 15, BUN 81 H, Creatinine 8.55 H*, Estim Creat Clear Calc 5.21, Est GFR (MDRD) Af Amer 6 L, Est GFR (MDRD) Non-Af 5 L, BUN/Creatinine Ratio 9.5 L, Glucose 113 H, Calcium 8.7, Magnesium 3.0 H, Total Bilirubin 0.30, AST 12 L, ALT 20, Alkaline Phosphatase 90, Total Protein 6.6, Albumin 2.8 L, Globulin 3.8, Albumin/Globulin Ratio 0.7 L, TSH 2.21 05/02/21 04:00: Phosphorus 7.1 H 05/02/21 08:23: POC Glucose 110 05/02/21 10:37: POC Glucose 132 H 05/02/21 12:20: POC Glucose 146 H 05/02/21 14:17: POC Glucose 134 H Micro: Microbiology 05/01/21 15:11 Nasal Secretion SARS-CoV-2 Antigen (Rapid) - Final Radiology Impression Renal Ultrasound 05/01/21 15:33 IMPRESSION: 1. Normal sonographic appearance of both kidneys without evidence of solid or cystic masses, calcifications or obstructive uropathy. 2. Bladder is not well visualized, Garcia catheter in place and bladder is decompressed. 3. Incidental note of diffuse fatty infiltration of the liver consistent with hepatic steatosis. No ascites noted.. Electronically Signed: Jose G Vivar MD at 18:26 EST Tel , Service support ,
[2021-05-02] MEDS: amLODIPine 10 MG Tablet PO (16:42)
[2021-05-02] MEDS: Sodium Polystyrene Sulfonate 15 GM/60 ML UDC PO (16:42)
[2021-05-02 18:30] LABS: Bedside Glucose 113 mg/dL (70-110)
[2021-05-03] VITALS (10 sets, daily range): BP systolic 115–139; BP diastolic 63–76; PULSE 74–97; RESP 16–18; TEMP 36.6–37.2; O2SAT 96–98
[2021-05-03] MEDS: 0.9% Normal Saline 1,000 ML 75 ML IV ×2 (00:06→11:53)
[2021-05-03 00:17] LABS: Bedside Glucose 133 mg/dL (70-110)
[2021-05-03 01:06] LABS: Bedside Glucose 125 mg/dL (70-110)
[2021-05-03] MEDS: Heparin Injection (Vial) 5,000 UNIT/ML VIAL 5000 UNIT SC ×3 (06:11→20:15)
[2021-05-03 06:46] LABS: Bedside Glucose 72 mg/dL (70-110)
[2021-05-03 07:17] LABS: Anion Gap 11 (5-15); BUN 86 mg/dL (7-18); BUN/Creat Ratio 9.6 RATIO (10-20); Calcium,Total 8.2 mg/dL (8.5-10.1); Chloride 94 mmol/L (98-107); Creatinine, Serum 8.99 mg/dL (0.55-1.02); EST Glomerular Filtration Rate 5 mL/min (>60); Est Glom Filt Rate - Afr Amer 6 mL/min (>60); Estimated Creatinine Clearance 4.95 ml/min; Glucose 83 mg/dL (74-106); Magnesium 2.8 mg/dL (1.6-2.6); Phosphorus 8.7 mg/dL (2.5-4.9); Potassium 4.5 mmol/L (3.5-5.1); Sodium Level 130 mmol/L (136-145)
--- NOTE | 2021-05-03 07:32 | NURSING ---
all documentation completed by Christine VILCHIS reviewed by this RN
[2021-05-03] MEDS: Metoprolol(XL)Succ 50 MG Tablet PO (10:11)
[2021-05-03] MEDS: amLODIPine 10 MG Tablet PO (10:11)
[2021-05-03] MEDS: Tolterodine Tartrate 4 MG CAP.SA PO (10:12)
[2021-05-03] MEDS: Lidocaine 5% Patch 1 PATCH TOPICAL (10:16)
[2021-05-03] MEDS: Ceftriaxone 1 GM/50 ML BAG IV (10:51)
[2021-05-03 12:36] LABS: Bedside Glucose 155 mg/dL (70-110)
--- NOTE | 2021-05-03 14:37 | PN.HOSP_ITS ---
Subjective Subjective She states she is feeling okay. She is having issues with her chronic pain which is related to osteoarthritis but her urine output has picked up and her confusion has resolved. She remains off dextrose at this time and blood sugars are 113-155. We did discuss her weight and possible bariatric referral she is hesitant to go the surgical route would but seems to be very interested in any medical therapy with exercise and diet changes. We discussed that it would be more of a lifestyle change and overall revamping of the way she looks at food and exercise and she is in agreement. We did discuss the fact that her CT of her chest showed hepatic steatosis and what that means for her future and the etiologies and pathophysiology of that. She had several good questions and we discussed everything thoroughly and she seemed to have good understanding of what is going on. Objective Data Objective Data Vital Signs: Vital Signs Temp Pulse Resp BP Pulse Ox 98.9 F 83 18 115/70 98 05/03/21 10:00 05/03/21 12:00 05/03/21 10:00 05/03/21 10:11 05/03/21 10:00 Oxygen Flow Rate (L/min) 2 Oxygen Delivery Method Nasal Cannula Weight: 143.9 kg Body Mass Index (BMI) 54.6 Intake & Output: Intake and Output for Last 24 Hours 05/01/21 05/02/21 05/03/21 23:59 23:59 23:59 Intake Total 1250 / 1350 1802.92 / 1802.92 2362.50 / 2362.50 Output Total 50 / 150 825 / 1525 2150 / 2150 Balance 1200 / 1200 977.92 / 277.92 212.50 / 212.50 Lab / Micro Data Result Diagrams: 05/02/21 04:00 05/03/21 06:30 Labs: Laboratory Results - last 24 hr 05/02/21 16:38: POC Glucose 125 H 05/02/21 18:25: POC Glucose 113 H 05/03/21 00:03: POC Glucose 133 H 05/03/21 06:06: POC Glucose 72 05/03/21 06:30: Sodium 130 L, Potassium 4.5, Chloride 94 L, Carbon Dioxide 25.0, Anion Gap 11, BUN 86 H, Creatinine 8.99 H*, Estim Creat Clear Calc 4.95, Est GFR (MDRD) Af Amer 6 L, Est GFR (MDRD) Non-Af 5 L, BUN/Creatinine Ratio 9.6 L, Glucose 83, Calcium 8.2 L, Phosphorus 8.7 H, Magnesium 2.8 H 05/03/21 12:27: POC Glucose 155 H Micro: Microbiology 05/02/21 10:15 Urine Catheter - Barros Urine Culture - Preliminary GNR 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 teacher Gram negative trista 05/01/21 15:11 Nasal Secretion SARS-CoV-2 Antigen (Rapid) - Final Physical Exam Const alert, oriented x3 and no apparent distress Constitutional Narrative: Morbidly obese white female sitting up in chair at the bedside, appears comfortable, mental status is back to baseline, nontoxic General Appearance: cooperative Exam Limitations: no limitations Nutritional Appearance: morbidly obese HEENT normocephalic, head/scalp atraumatic, hearing grossly normal bilaterally and moist oral mucous membranes HEENT Narrative: Mallampati is 3-4, no thrush Head and Scalp: normocephalic Resp normal respiratory effort, no retractions, no use of accessory muscles and clear to auscultation bilaterally Resp Narrative: Lungs remain clear Auscultation: Negative for crackles, rales, rhonchi or wheezes Cardio regular rate, regular rhythm, S1 normal heart sound, S2 normal heart sound, no murmurs, no rub, no gallops, no clicks and no JVD Cardio Narrative: Distant secondary to body habitus GI normal to inspection, nondistended, normoactive bowel sounds, soft to palpation, non-tender and non-distended Extremity no clubbing, cyanosis or edema Peripheral Pulses: Yes pulses 2+ throughout Neuro oriented x3, moves all extremities and no focal motor deficits Neuro Narrative: Confusion has improved Sensorium / Orientation: awake and alert Speech: speech normal Assessment & Plan Assessment/Plan (1) Acute renal failure: (2) Metabolic encephalopathy: (3) Acute hyperkalemia: (4) Hypoglycemia associated with diabetes: (5) Hypercalcemia: PLAN: LUISA on CKD stage IIIb secondary to ATN -Nonoliguria -Baseline serum creatinine per discussion with PCP office from 04/06/2021 was 1.38 -Serum creatinine at 8.99 -Continue Barros--> try to discontinue tomorrow -Urine output has increased significantly and patient has had over 2-1/2 L out in the last 24 hours -Increase IV fluids to normal saline at 150 cc/h as I do anticipate that the patient probably is experiencing some post ATN diuresis -Renal ultrasound shows normal bilateral kidneys -Fe urea is consistent with intrinsic renal issues at 57.8% -Hold Lasix, meloxicam -Hold all diabetes meds -Renal diet ordered -Nephrology is following Hyperkalemia -Resolved Metabolic encephalopathy -Likely related to uremia, gabapentin, and hypoglycemia -Has resolved Hypoglycemia -Suspect this is related to multiple oral agents and severe LUISA -Resolved -D5 10 was discontinued around midnight -Blood sugars are holding steady without any intervention in the 110-150 range -Once blood sugars trending greater than 180 will start sliding scale -Continue Accu-Cheks as ordered Acute urinary tract infection -Urine culture is showing gram-negative rods/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 teacher -It appears to organisms are present -Continue ceftriaxone at this time and continue to monitor culture for sensitivities and identification Electrolyte abnormalities -All electrolyte abnormalities are improving -Repeat a.m. lab Hepatic steatosis -This was noted on ultrasound of kidneys -Likely related to metabolic dysfunction -Will need improved control of diabetes and cholesterol -Would recommend consideration for outpatient gastric bypass evaluation -Discussed bariatric intervention with the patient today she is reluctant to undergo bariatric surgery but is very much interested in lifestyle changes that include dietary and exercise changes. Hypertension -Hold losartan -Hold Lasix -Continue Norvasc 10 mg as blood pressures are normalized -As needed hydralazine Uncontrolled DM-2 -Most recent hemoglobin A1c was 8.5 on 03/30/2021 -Given hypoglycemia no treatment at this time -Every 4 hour blood sugar checks -We will initiate sliding scale insulin once blood sugars are greater than 170 -Currently 100-1 50 Chronic pain -Hold meloxicam -Tylenol -Lidocaine patches Morbid obesity -Recommend weight loss -Complicates overall treatment, prognosis, outcomes -Outpatient sleep study referral has been placed in discharge paperwork -I have discussed bariatric intervention and she would like to follow-up for nonsurgical intervention if possible after discharge DVT prophylaxis -Heparin 3 times daily -SCDs CODE STATUS -Full code Charges/Coding Visit Charges Inpatient E&M: 22106 Subs Hosp L2
[2021-05-03 17:06] LABS: Bedside Glucose 172 mg/dL (70-110)
--- NOTE | 2021-05-03 18:45 | PCM.PN.REN ---
Subjective Subjective no new complaints Objective Data Objective Data Vital Signs: Vital Signs Temp Pulse Resp BP Pulse Ox 97.9 F 97 16 125/72 H 98 05/03/21 16:30 05/03/21 16:30 05/03/21 16:30 05/03/21 16:30 05/03/21 16:30 Oxygen Flow Rate (L/min) 2 Oxygen Delivery Method Nasal Cannula Weight: 143.9 kg Body Mass Index (BMI) 54.6 Intake & Output: Intake and Output for Last 24 Hours 05/01/21 05/02/21 05/03/21 23:59 23:59 23:59 Intake Total 1250 / 1350 1802.92 / 1802.92 2855.00 / 2855.00 Output Total 50 / 150 825 / 1525 5100 / 5100 Balance 1200 / 1200 977.92 / 277.92 -2245.00 / -2245.00 Lab / Micro Data Result Diagrams: 05/02/21 04:00 05/03/21 06:30 Labs: Laboratory Results - last 24 hr 05/02/21 16:38: POC Glucose 125 H 05/03/21 00:03: POC Glucose 133 H 05/03/21 06:06: POC Glucose 72 05/03/21 06:30: Sodium 130 L, Potassium 4.5, Chloride 94 L, Carbon Dioxide 25.0, Anion Gap 11, BUN 86 H, Creatinine 8.99 H*, Estim Creat Clear Calc 4.95, Est GFR (MDRD) Af Amer 6 L, Est GFR (MDRD) Non-Af 5 L, BUN/Creatinine Ratio 9.6 L, Glucose 83, Calcium 8.2 L, Phosphorus 8.7 H, Magnesium 2.8 H 05/03/21 12:27: POC Glucose 155 H 05/03/21 16:56: POC Glucose 172 H Micro: Microbiology 05/02/21 10:15 Urine Catheter - Garcia Urine Culture - Preliminary GNR lactose reinforcement maker Gram negative trista 05/01/21 15:11 Nasal Secretion SARS-CoV-2 Antigen (Rapid) - Final Physical Exam Narrative Alert awake oriented x 3 no obvious distress no pallor no icterus no JVD s1s2 no murmurs lungs clear abdomen soft no organomegaly no edema no cyanosis garcia + Assessment & Plan Assessment/Plan (1) Acute renal failure: PLAN: Baseline creatinine prior to admission was around 1.3. Sustained renal failure. Apparently she had poor appetite, continuous nausea for the last 10 days. Admitted with severe hypoglycemia. Possibly dehydration. She was also on Lasix at home which might have contributed. Renal ultrasound is not impressive. Urine analysis does show some cells but this is an oliguric sample. urine output better. likely ATN. reviewed data from [facility]. she developed hypercalcemia last month. SPEP negative. PTH low. PTH rp low. she was asked to stop calcium and HCTZ. calcium is now better. (2) Acute hyperkalemia: PLAN: Due to LUISA. Received medical treatment. better Hyponatremia. Possibly hypovolemic. better.
[2021-05-03] MEDS: Lidocaine 5% Patch 2 PATCH TOPICAL (20:16)
[2021-05-03] MEDS: Acetaminophen 325 MG Tablet 650 MG PO (20:19)
[2021-05-03] MEDS: 0.9% Normal Saline 1,000 ML 150 ML IV (20:33)
[2021-05-04] VITALS (14 sets, daily range): BP systolic 136–188; BP diastolic 63–88; PULSE 78–89; RESP 18–20; TEMP 36.6–37.3; O2SAT 97–100
[2021-05-04 00:50] LABS: Bedside Glucose 222 mg/dL (70-110)
[2021-05-04] MEDS: Acetaminophen 325 MG Tablet 650 MG PO ×4 (02:06→23:42)
[2021-05-04] MEDS: 0.9% Normal Saline 1,000 ML 150 ML IV ×4 (03:38→23:46)
[2021-05-04] MEDS: Heparin Injection (Vial) 5,000 UNIT/ML VIAL 5000 UNIT SC ×3 (06:05→21:34)
[2021-05-04 06:25] LABS: Bedside Glucose 127 mg/dL (70-110)
[2021-05-04 07:21] LABS: Absolute Neutrophil Count 4.7 X10^3/uL (2.0-7.7); Basophil# 0.04 X10^3/uL; Basophil% 0.6 % (0-1); Eosinophil# 0.17 X10^3/uL; Eosinophils% 2.7 % (0-5); Hematocrit 29.7 % (37-47); Hemoglobin 9.8 g/dL (12.0-15.0); Lymphocyte % 12.9 % (19-41); Mean Corpuscular Hgb 29.4 pg (27.0-32.0); Mean Corpuscular Volume 89.2 fL (81-99); Mean Platelet Vol. 10.2 fl (6.2-12.0); Monocyte% 8.1 % (0-10); NRBC Flagged by Analyzer 0 % (0-5); Neutrophil # 4.67 X10^3/uL (2.7-7.7); Neutrophil % 75.4 % (47-70); Platelet Count 165 K/mm3 (150-450); RBC Distribution Width CV 13.3 % (11.6-14.6); RBC Distribution Width SD 43.8 fl (35.1-43.9); Red Blood Count 3.33 M/mm3 (4.2-5.4); White Blood Count 6.2 K/mm3 (4.4-11.0)
[2021-05-04 07:45] LABS: Anion Gap 9 (5-15); BUN 75 mg/dL (7-18); BUN/Creat Ratio 11.1 RATIO (10-20); Calcium,Total 7.7 mg/dL (8.5-10.1); Chloride 104 mmol/L (98-107); Creatinine, Serum 6.78 mg/dL (0.55-1.02); EST Glomerular Filtration Rate 6 mL/min (>60); Est Glom Filt Rate - Afr Amer 8 mL/min (>60); Estimated Creatinine Clearance 6.57 ml/min; Glucose 132 mg/dL (74-106); Magnesium 2.2 mg/dL (1.6-2.6); Phosphorus 6.5 mg/dL (2.5-4.9); Potassium 3.8 mmol/L (3.5-5.1); Sodium Level 136 mmol/L (136-145)
[2021-05-04] MEDS: amLODIPine 10 MG Tablet PO (10:27)
[2021-05-04] MEDS: Metoprolol(XL)Succ 50 MG Tablet PO (10:27)
[2021-05-04] MEDS: Tolterodine Tartrate 4 MG CAP.SA PO (10:28)
[2021-05-04] MEDS: Ceftriaxone 1 GM/50 ML BAG IV (10:28)
--- NOTE | 2021-05-04 10:29 | CASEMGMT ---
SW reviewed patient's chart and noted therapy discussed possible SNF placement with patient. SW met with patient, introduced self and role at [facility]. SW asked patient about her discharge plan. Patient is not sure what she is going to do. She is open to SW giving her a list of facilities. SW asked if she would like [facility]. Patient asked for [facility] and [facility]. SW provided patient with a list of SNF providers including quality and resource use data and consistent with the patient?s preferred geographic region, medical needs, and insurance network. Patient would like to think about it. SW will check back with patient. Sonya Newton CLINICAL SALES CONSULTANT MITUL
[2021-05-04] MEDS: Polyethylene Glycol 3350 17 GM PACKET 34 GM PO (10:30)
[2021-05-04] MEDS: Lidocaine 5% Patch 1 PATCH TOPICAL (10:31)
[2021-05-04 10:34] LABS: Bacteria 0 SEEN /hpf (None Seen); Mucous, Urine 0 SEEN /hpf (<or=2+); Red Blood Cells-Urine 0 SEEN /hpf (0-5)
[2021-05-04 10:42] LABS: Color, Urine Straw (Yellow); Glucose, Dipstick 250 mg/dl (Normal); Ketone-Dipstick Negative (Negative); Leukocyte Esterase-Dipstick 25 /ul (Negative); Nitrite-Dipstick Negative (Negative); Occult Blood-Urine 10 /ul (Negative); Protein-Dipstick 30 mg/dl (Negative); Specific Gravity, Urine 1.005 (1.002-1.030); Urine Bilirubin Dipstick Negative (Negative); Urine Clarity Clear (Clear); Urine Urobilinogen Normal (Normal)
[2021-05-04 10:48] LABS: Squamous Epithelial Cells - UA 0-5 SEEN /hpf (5-10); White Blood Cells 0-5 SEEN /hpf (0-5)
--- NOTE | 2021-05-04 12:13 | CASEMGMT ---
Addendum entered by Sonya Newton 05/04/21 12:50: SW did fax referral to [facility] as well. Sonya BAUMAN Original Note: Physician came out of patient's room and said her choices are [facility] and [facility]. [facility] is her first choice. SW called [facility] and they will look at the referral. SW also called [facility] regarding referral and let Irina know that [facility] is patient's second choice. Referral faxed to [facility] as well. Sonya BAUMAN
--- NOTE | 2021-05-04 14:00 | CASEMGMT ---
SW spoke with patient and updated her on the [facility] referrals. SW let patient know that referrals were made and SW is just waiting on the facilities to get back to SW. Patient is communicating with her daughter and she wants her daughter to approve of the facility she goes to. Patient told her daughter about the 2 places she chose and she is waiting on her to get back to her. Sonya Newton LIQUID FLAVOR COMPOUNDER MITUL
--- NOTE | 2021-05-04 14:34 | PCM.PN.REN ---
Subjective Subjective Sitting in chair, eating lunch. Denies any nausea or vomiting. A&O x3 . Objective Data Objective Data Vital Signs: Vital Signs Temp Pulse Resp BP Pulse Ox 98.8 F 82 18 142/88 H 100 05/04/21 13:31 05/04/21 13:31 05/04/21 13:31 05/04/21 13:31 05/04/21 13:31 Oxygen Flow Rate (L/min) 2 Oxygen Delivery Method Room Air Weight: 144.2 kg Body Mass Index (BMI) 54.6 Intake & Output: Intake and Output for Last 24 Hours 05/02/21 05/03/21 05/04/21 23:59 23:59 23:59 Intake Total 1802.92 / 1802.92 3602.50 / 3602.50 2980 / 2980 Output Total 825 / 1525 5100 / 5425 3700 / 3700 Balance 977.92 / 277.92 -1497.50 / -1822.50 -720 / -720 Lab / Micro Data Result Diagrams: 05/04/21 06:04 05/04/21 06:04 Labs: Laboratory Results - last 24 hr 05/01/21 16:08: Miscellaneous Test Cancelled 05/03/21 16:56: POC Glucose 172 H 05/04/21 00:23: POC Glucose 222 H 05/04/21 05:55: POC Glucose 127 H 05/04/21 06:04: WBC 6.2, RBC 3.33 L, Hgb 9.8 L, Hct 29.7 L, MCV 89.2, MCH 29.4, MCHC 33.0, RDW Std Deviation 43.8, RDW Coeff of Raheel 13.3, Plt Count 165, MPV 10.2, Immature Gran % (Auto) 0.300, Neut % (Auto) 75.4 H, Lymph % (Auto) 12.9 L, [place] % (Auto) 8.1, Eos % (Auto) 2.7, Baso % (Auto) 0.6, Absolute Neuts (auto) 4.7, Absolute Lymphs (auto) 0.80 L, Nucleated RBC % 0 05/04/21 06:04: Sodium 136, Potassium 3.8, Chloride 104, Carbon Dioxide 23.0, Anion Gap 9, BUN 75 H, Creatinine 6.78 H, Estim Creat Clear Calc 6.57, Est GFR (MDRD) Af Amer 8 L, Est GFR (MDRD) Non-Af 6 L, BUN/Creatinine Ratio 11.1, Glucose 132 H, Calcium 7.7 L, Phosphorus 6.5 H, Magnesium 2.2 05/04/21 10:00: Urine Color Straw, Urine Clarity Clear, Urine pH 7.0, Ur Specific [employer] 1.005, Urine Protein 30 H, Urine Glucose (UA) 250 H, Urine Ketones Negative, Urine Occult Blood 10 H, Urine Nitrite Negative, Urine Bilirubin Negative, Urine Urobilinogen Normal, Ur Leukocyte Esterase 25 H, Urine RBC 0 SEEN, Urine WBC 0-5 SEEN, Ur Squamous Epith Cells 0-5 SEEN, Urine Bacteria 0 SEEN, Urine Mucus 0 SEEN Micro: Microbiology 05/02/21 10:15 Urine Catheter - Garcia Urine Culture - Final Escherichia coli Escherichia coli#2 05/01/21 15:11 Nasal Secretion SARS-CoV-2 Antigen (Rapid) - Final Physical Exam Narrative Alert awake oriented x 3 no obvious distress s1s2 no murmurs lungs clear abdomen soft no organomegaly no edema no cyanosis garcia + clear urine in bag Assessment & Plan Assessment/Plan (1) Acute renal failure: (2) Acute hyperkalemia: PLAN: LUISA secondary to ATN, nonoliguric. Baseline creatinine prior to admission was around 1.3. Sustained renal failure. Apparently she had poor appetite, continuous nausea for the last 10 days with concurrent NSAIDs and diuretic. Admitted with severe hypoglycemia. Possibly dehydration. She was also on Lasix at home which might have contributed. Renal ultrasound is not impressive. Urine analysis does show some cells but this is an oliguric sample. urine output has picked up. SCr 8mg/dL on admission--> peaked 8.99mg/dL 05/03 and today SCr 6.78mg/dL. K+ and acid/base acceptable. At this time there is no acute indication for ELECTRIC LOCOMOTIVE FIRER/FIREMAN. No significant uremic symptoms. Continue holding Meloxicam and losartan. Discussed with patient importance of avoiding Meloxicam and OTC NSAIDs even at home until follow up with nephrology/or PCP. C3, PANCA and CANCA pending. reviewed data from [facility]. she developed hypercalcemia last month. SPEP negative. PTH low. PTH rp low. she was asked to stop calcium and HCTZ. calcium is now better. Hypertension; bp acceptable on Toprol. Losartan on hold Hyperkalemia; resolved, due to LUISA. Received medical treatment. Hyponatremia. Possibly hypovolemic. Sodium now 136. Can continue IVF for another day. OK to d/c jose if ok with primary team. Continue strict I&O. Possible discharge in next 24-48 hours if renal function continues to improve and patient can follow up with us in [place] office.
--- NOTE | 2021-05-04 14:37 | CASEMGMT ---
SW received a return call from Irina at [facility] and they are declining patient at this time. Awaiting call from [facility]. Sonya Newton CLINIC SUPERVISOR MITUL
--- NOTE | 2021-05-04 15:14 | NURSING ---
This RN reviewed SN charting and was with SN during all medication administration.
--- NOTE | 2021-05-04 15:22 | CASEMGMT ---
NOREEN received a call from Anusha at [facility] ([facility]). They can accept patient. NOREEN let patient know and she is trying to talk with her daughter to make sure she is okay with [facility]. Her daughter is at work and she is not sure what time she will be able to talk with her. NOREEN notified physician. SW did talk with [facility] and the latest they like to take patients would be 6p. NOREEN notified physician. Plan: [facility] unless patient talks with her daughter and they choose another facility. Sonya Newton DIRECTOR LEARNING SERVICES MITUL
--- NOTE | 2021-05-04 16:07 | CASEMGMT ---
SW spoke with patient again and she has not spoken to her daughter yet. NOREEN called Anusha at [facility] and left her a voice mail letting her know the situation and it is likely patient will come tomorrow. Sonya BAUMAN
[2021-05-04 18:10] LABS: Bedside Glucose 214 mg/dL (70-110)
[2021-05-04] MEDS: hydrALAZINE 20 MG/ML Vial 10 MG IV (18:30)
[2021-05-04] MEDS: 0.9% Saline Lock 10 ML Syringe IV (18:30)
--- NOTE | 2021-05-04 19:36 | PCM.PN.HOSP ---
Subjective Subjective Patient was seen and examined today, I talked briefly with nephrology about her medical care, they stated that the patient was stable enough to be discharged with follow-up, I talked to the patient about going to an extended care facility for short-term rehab services, she is agreed to this and wants to go to the [facility] in [place], [place]. Unfortunately, patient states that she wants to talk with her daughter before she leaves and it was not possible to get her discharged today at this late time. Objective Data Objective Data Vital Signs: Vital Signs Temp Pulse Resp BP Pulse Ox 99.1 F 88 18 188/85 H 99 05/04/21 18:27 05/04/21 18:59 05/04/21 18:27 05/04/21 18:30 05/04/21 18:27 Oxygen Flow Rate (L/min) 2 Oxygen Delivery Method Room Air Weight: 144.2 kg Body Mass Index (BMI) 54.6 Intake & Output: Intake and Output for Last 24 Hours 05/02/21 05/03/21 05/04/21 23:59 23:59 23:59 Intake Total 1802.92 / 1802.92 3602.50 / 3602.50 3980 / 3980 Output Total 825 / 1525 5100 / 5425 6200 / 6200 Balance 977.92 / 277.92 -1497.50 / -1822.50 -2220 / -2220 Lab / Micro Data Result Diagrams: 05/04/21 06:04 05/04/21 06:04 Labs: Laboratory Results - last 24 hr 05/01/21 16:08: Miscellaneous Test Cancelled 05/04/21 00:23: POC Glucose 222 H 05/04/21 05:55: POC Glucose 127 H 05/04/21 06:04: WBC 6.2, RBC 3.33 L, Hgb 9.8 L, Hct 29.7 L, MCV 89.2, MCH 29.4, MCHC 33.0, RDW Std Deviation 43.8, RDW Coeff of Raheel 13.3, Plt Count 165, MPV 10.2, Immature Gran % (Auto) 0.300, Neut % (Auto) 75.4 H, Lymph % (Auto) 12.9 L, [place] % (Auto) 8.1, Eos % (Auto) 2.7, Baso % (Auto) 0.6, Absolute Neuts (auto) 4.7, Absolute Lymphs (auto) 0.80 L, Nucleated RBC % 0 05/04/21 06:04: Sodium 136, Potassium 3.8, Chloride 104, Carbon Dioxide 23.0, Anion Gap 9, BUN 75 H, Creatinine 6.78 H, Estim Creat Clear Calc 6.57, Est GFR (MDRD) Af Amer 8 L, Est GFR (MDRD) Non-Af 6 L, BUN/Creatinine Ratio 11.1, Glucose 132 H, Calcium 7.7 L, Phosphorus 6.5 H, Magnesium 2.2 05/04/21 10:00: Urine Color Straw, Urine Clarity Clear, Urine pH 7.0, Ur Specific [place] 1.005, Urine Protein 30 H, Urine Glucose (UA) 250 H, Urine Ketones Negative, Urine Occult Blood 10 H, Urine Nitrite Negative, Urine Bilirubin Negative, Urine Urobilinogen Normal, Ur Leukocyte Esterase 25 H, Urine RBC 0 SEEN, Urine WBC 0-5 SEEN, Ur Squamous Epith Cells 0-5 SEEN, Urine Bacteria 0 SEEN, Urine Mucus 0 SEEN 05/04/21 18:03: POC Glucose 214 H Micro: Microbiology 05/02/21 10:15 Urine Catheter - Barros Urine Culture - Final Escherichia coli Escherichia coli#2 05/01/21 15:11 Nasal Secretion SARS-CoV-2 Antigen (Rapid) - Final Physical Exam Const alert, oriented x3 and no apparent distress Constitutional Narrative: Patient is morbidly obese General Appearance: cooperative, well kempt and well developed Orientation / Consciousness: awake, oriented to person, oriented to place and oriented to time HEENT normocephalic, head/scalp atraumatic and moist oral mucous membranes Head and Scalp: normocephalic Eyes PERRL, EOMs intact bilaterally and conjunctivae normal Neck nuchal rigidity, supple, no JVD, thyroid normal and no carotid bruits General: trachea midline Resp normal respiratory effort, no retractions, no use of accessory muscles and clear to auscultation bilaterally Auscultation: Negative for rales, rhonchi or wheezes Cardio regular rate, regular rhythm, S1 normal heart sound, S2 normal heart sound, no murmurs, no rub and no gallops GI normal to inspection, nondistended, normoactive bowel sounds, soft to palpation and non-tender GI Narrative: Patient is morbidly obese Extremity normal to inspection and no clubbing, cyanosis or edema Skin no rashes or lesions noted General Skin Exam: no breakdown Neuro oriented x3, CN's II-XII intact bilaterally and no focal motor deficits Sensorium / Orientation: awake and alert Speech: speech normal Psych thought process normal and affect normal Assessment & Plan Assessment/Plan (1) Acute renal failure: PLAN: 1. Acute renal failure-this appears to be improving at this time, patient's creatinine today was 6.78-continue fluids at this time, labs will need to be ordered for follow-up after the patient is discharged. #2 metabolic encephalopathy secondary to #1-this appears to be improving but patient is still somewhat slow in answering questions. #3 uncontrolled type 2 diabetes #4 morbid obesity #5 hypokalemia-corrected at this time #6 essential hypertension #7 acute debility-patient will need short-term care home services Charges/Coding Visit Charges Inpatient E&M: 50811 Subs Hosp L2
--- NOTE | 2021-05-04 20:19 | PCS.PANDOC ---
PANDEMIC DOCUMENTATION INITIATED: Date: 02/02/2021 Time: 190
[2021-05-04] MEDS: Lidocaine 5% Patch 2 PATCH TOPICAL (21:33)
[2021-05-04 23:51] LABS: Bedside Glucose 156 mg/dL (70-110)
[2021-05-05] VITALS (13 sets, daily range): BP systolic 149–180; BP diastolic 72–86; PULSE 78–86; RESP 16–20; TEMP 36.5–36.9; O2SAT 96–99
[2021-05-05] MEDS: Acetaminophen 325 MG Tablet 650 MG PO ×2 (05:42→11:43)
[2021-05-05] MEDS: 0.9% Normal Saline 1,000 ML 150 ML IV (05:43)
[2021-05-05] MEDS: Heparin Injection (Vial) 5,000 UNIT/ML VIAL 5000 UNIT SC ×2 (05:46→12:46)
[2021-05-05 05:56] LABS: Bedside Glucose 121 mg/dL (70-110)
[2021-05-05 07:02] LABS: Anion Gap 8 (5-15); BUN 49 mg/dL (7-18); Calcium,Total 7.9 mg/dL (8.5-10.1); Chloride 108 mmol/L (98-107); Creatinine, Serum 3.78 mg/dL (0.55-1.02); EST Glomerular Filtration Rate 13 mL/min (>60); Est Glom Filt Rate - Afr Amer 15 mL/min (>60); Estimated Creatinine Clearance 11.78 ml/min; Glucose 125 mg/dL (74-106); Phosphorus 3.8 mg/dL (2.5-4.9); Potassium 3.4 mmol/L (3.5-5.1); Sodium Level 137 mmol/L (136-145)
[2021-05-05] MEDS: Ceftriaxone 1 GM/50 ML BAG IV (09:01)
[2021-05-05] MEDS: Tolterodine Tartrate 4 MG CAP.SA PO (09:03)
[2021-05-05] MEDS: Metoprolol(XL)Succ 50 MG Tablet PO (09:03)
[2021-05-05] MEDS: amLODIPine 10 MG Tablet PO (09:03)
[2021-05-05] MEDS: Lidocaine 5% Patch 1 PATCH TOPICAL (09:04)
--- NOTE | 2021-05-05 09:15 | CASEMGMT ---
SW went to patient's room first thing this am and asked if she spoke with her daughter yesterday. Patient stated, Screw that. Sorry. Per patient her daughter yelled at her and does not want patient to go to [facility]. Patient said she will go home. NOREEN told patient yesterday she was a max assist of 2 people how will she manage at home. Patient said she will manage and her sister lives next door. NOREEN told patient we can see how she does with therapy today and go from there. Sonya Newton BUSINESS ANALYTICS FACULTY MEMBER MITUL
--- NOTE | 2021-05-05 09:52 | PN.RENAL_ITS ---
Subjective Subjective Patient sitting in chair, denies any complaints. Barros removed and reports voided without issues. Objective Data Objective Data Vital Signs: Vital Signs Temp Pulse Resp BP Pulse Ox 98.5 F 83 18 180/84 H 97 05/05/21 09:00 05/05/21 09:03 05/05/21 09:00 05/05/21 09:03 05/05/21 09:00 Oxygen Flow Rate (L/min) 2 Oxygen Delivery Method Room Air Weight: 144.5 kg Body Mass Index (BMI) 54.6 Intake & Output: Intake and Output for Last 24 Hours 05/03/21 05/04/21 05/05/21 23:59 23:59 23:59 Intake Total 3602.50 / 3602.50 4932.5 / 5052.5 1150 / 1150 Output Total 5100 / 5425 6200 / 8700 3075 / 3075 Balance -1497.50 / -1822.50 -1267.5 / -3647.5 -1925 / -1925 Lab / Micro Data Result Diagrams: 05/04/21 06:04 05/05/21 05:54 Labs: Laboratory Results - last 24 hr 05/01/21 16:08: Miscellaneous Test Cancelled 05/04/21 10:00: Urine Color Straw, Urine Clarity Clear, Urine pH 7.0, Ur Specific [place] 1.005, Urine Protein 30 H, Urine Glucose (UA) 250 H, Urine Ketones Negative, Urine Occult Blood 10 H, Urine Nitrite Negative, Urine Bilirubin Negative, Urine Urobilinogen Normal, Ur Leukocyte Esterase 25 H, Urine RBC 0 SEEN, Urine WBC 0-5 SEEN, Ur Squamous Epith Cells 0-5 SEEN, Urine Bacteria 0 SEEN, Urine Mucus 0 SEEN 05/04/21 18:03: POC Glucose 214 H 05/04/21 23:44: POC Glucose 156 H 05/05/21 05:46: POC Glucose 121 H 05/05/21 05:54: Sodium 137, Potassium 3.4 L, Chloride 108 H, Carbon Dioxide 21.0, Anion Gap 8, BUN 49 H, Creatinine 3.78 H, Estim Creat Clear Calc 11.78, Est GFR (MDRD) Af Amer 15 L, Est GFR (MDRD) Non-Af 13 L, BUN/Creatinine Ratio 13.0, Glucose 125 H, Calcium 7.9 L, Phosphorus 3.8 Micro: Microbiology 05/02/21 10:15 Urine Catheter - Barros Urine Culture - Final Escherichia coli Escherichia coli#2 05/01/21 15:11 Nasal Secretion SARS-CoV-2 Antigen (Rapid) - Final Physical Exam Narrative Alert awake oriented x 3 no obvious distress s1s2 no murmurs lungs clear abdomen soft no organomegaly no edema no cyanosis Assessment & Plan Assessment/Plan (1) Acute renal failure: (2) Acute hyperkalemia: PLAN: LUISA secondary to ATN, nonoliguric. Baseline creatinine prior to admission was around 1.3. Sustained renal failure. Apparently she had poor appetite, continuous nausea for the last 10 days with concurrent NSAIDs and diuretic. Admitted with severe hypoglycemia. Possibly dehydration. She was also on Lasix at home which might have contributed. Renal ultrasound is not impressive. Urine analysis does show some cells but this is an oliguric sample. urine output has picked up. SCr 8mg/dL on admission--> peaked 8.99mg/dL 05/03 and today SCr 3.78mg/dL. K+ and acid/base acceptable. There is no acute indication for GEAR CUTTING MACHINE SET UP OPERATOR. No significant uremic symptoms. Continue holding Meloxicam and losartan. Discussed with patient importance of avoiding Meloxicam and OTC NSAIDs even at home until follow up with nephrology/or PCP. C3, PANCA and CANCA pending. reviewed data from [facility]. she developed hypercalcemia last month. SPEP negative. PTH low. PTH rp low. she was asked to stop calcium and HCTZ. calcium is now bet ter. Hypertension; on Toprol and Norvasc. Losartan on hold. BP elevated this am. Will d/c IVF. Hyperkalemia; resolved, due to LUISA. Received medical treatment. Hyponatremia. Possibly hypovolemic. Sodium 137 today OK for discharge per renal; patient can follow up with us in [place] office.
[2021-05-05] MEDS: hydrALAZINE 20 MG/ML Vial 10 MG IV (10:16)
[2021-05-05 11:10] LABS: Bedside Glucose 140 mg/dL (70-110)
--- NOTE | 2021-05-05 11:22 | CASEMGMT ---
Addendum entered by Yolanda Begum 05/05/21 12:30: Pt stated no preference on SNF and wants daughter to choose. Evans RN TAMEKA Addendum entered by Yolanda Begum 05/05/21 12:27: This RN CM has not heard back from daughter so call placed to her again and she did answer this time. Daughter states first two choices would be [facility] and [facility]. Diana states she would not want a referral faxed to [facility]. Kevan SORTO updated, voices understanding. Evans NIETO CM Original Note: Per OT, pt refused to get up with them this am even though she had to urinate and then was only able to get one pant leg on by herself and was dribbling urine in the process. This RN CM to room to discuss with pt as she was also a max assist of 2 yesterday with therapy. Pt is agreeable to go to SNF at this time and states her daughter would prefer somewhere closer to her in [facility]. This RN CM attempted to reach daughter on phone while in room with pt but phone went to voicemail and message left for her to call this RN CM back. Kevan SORTO updated, voices understanding. Evans NIETO CM
[2021-05-05] MEDS: 0.9% Saline Lock 10 ML Syringe IV (11:44)
[2021-05-05] MEDS: Ondansetron 4 MG/2 ML Vial IV (11:44)
[2021-05-05 11:50] LABS: Complement C3 167 mg/dL (82-167)
[2021-05-05] MEDS: Metoprolol(XL)Succ 25 MG Tablet PO (12:45)
[2021-05-05] MEDS: Potassium Chloride Oral Tablet 20 MEQ PO (12:46)
--- NOTE | 2021-05-05 13:32 | CASEMGMT ---
NOREEN called [facility] and they do not have any beds available. [facility] and also faxed information. Per Yolanda NIETO CM patient's daughter's first 2 choices are above. The only place she does not want is [facility]. Any place in [facility] with ratings 4 or above would be okay as well. NOREEN did call several facilities in [facility] and made referrals to 3 other places. Await responses. NOREEN also spoke with patient and let her know that GERSON Guerrero did talk with her daughter. SW let patient know that SW did send out referrals and now just waiting on facilities to call back. Patient is in agreement with wherever her daughter says. Sonya Newton MSW MITUL
--- NOTE | 2021-05-05 15:23 | CASEMGMT ---
Addendum entered by Sonya Newton 05/05/21 15:35: SW notified patient and she is in agreement with [facility]. Sonya BAUMAN Original Note: SW received voice mail from [facility] and they can accept patient. SW also received a voice mail from [facility] and they cannot accept patient. SW has not heard from [facility] or [email or web address]. SW has called [email or web address] several times and left messages with no return call. SW called patient's daughter Vidya. SW let her know about [facility] being [facility] and SW not hearing back from [email or web address]. SW [facility]id[facility]. Vidya said that would be great and [facility] is even closer. SW let her know this will take place today. She thanked NOREEN for the assistance. NOREEN messaged physician and let him know patient can go today. [facility] and spoke with Elly. NOREEN let her know patient would be coming today. She said that is fine. Await orders. SW will also notilfy patient. Plan: d/c to [facility] and [facility] under skilled level of care on a convalescent stay. Sonya BAUMAN
--- NOTE | 2021-05-05 15:31 | PCM.TXEXTCAR ---
Diet 05/02/21 13:33 Diet: Consistent Carb - Calorie Controlled Food consistency:: Regular Liquid Consistency:: Regular/Thin Dietary Modifications:: Cardiac / Heart Healthy Fat Restricted How many daily calories?: 1800 calorie Routine Orders/Code Status Routine Lab Work: BMP (Daily x3 days starting 05/06/2021) Code Status: Full Code Therapies Weight Bearing: Full weight bearing Physical Therapy: Eval and Treat Occupational Therapy: Eval and Treat Problem/Diagnosis (1) Acute renal failure: Status: Acute Comment: Probably secondary to diuretic usage also with nausea from type II diabetic medication with resultant poor oral intake and dehydration (2) Acute hyperkalemia: Status: Acute Comment: Due to acute kidney injury and acute renal failure (3) Essential hypertension: Status: Chronic (4) Metabolic encephalopathy: Status: Acute Comment: Secondary to acute renal failure (5) Morbid obesity: Status: Chronic (6) Diabetes: Status: Chronic (7) Diabetic neuropathy: Status: Chronic Allergies/Procedures Done in Hospital Allergies latex Allergy (Verified 05/01/21 13:35) Rash nickel [Nickel] Allergy (Verified 05/01/21 13:35) Rash Procedures: - (Renal ultrasound) Type of Care/Length of Stay Estimated LOS: Convalescent Care Less Than 30 days Type of Care Needed: Skilled Rehab Potential: Good Prognosis: Good Additional Orders/Day of Discharge H&P will serve as current which was dated: 05/01/21 Day of Discharge: 05/05/21 Discharge Plan Admission Admit Date/Time: 05/01/21 15:24 Primary Reason for Your Visit: Acute kidney failure Attending Provider: Deep Vinson Primary Care Provider: Josh Hernandez Consulting Providers: Mayra Olmedo Discharge Orders/Prescriptions Prescriptions: New acetaminophen [Tylenol] 325 mg Tablet 650 mg PO Q6H PRN PRN (Reason: Pain Score 1-10/Temp > 100.7 F) Qty: 0 RF: 0 metoprolol succinate 50 mg Tablet Extended Release 24 Hr 50 mg PO BID Qty: 0 RF: 0 tolterodine 4 mg Capsule,Extended Release 24hr 4 mg PO DAILY Qty: 0 RF: 0 amlodipine 10 mg Tablet 10 mg PO DAILY Qty: 0 RF: 0 gabapentin 100 mg capsule 200 mg PO TID Qty: 1 RF: 0 cephalexin 500 mg capsule 500 mg PO BID Qty: 8 RF: 0 Discontinued tolterodine 4 mg Capsule,Extended Release 24hr 4 mg PO Q24H RF: 0 meloxicam 15 mg Tablet 15 mg PO DAILY RF: 0 pioglitazone 45 mg Tablet 45 mg PO DAILY RF: 0 metformin 1,000 mg Tablet 1,000 mg PO BID RF: 0 glimepiride 4 mg Tablet 4 mg PO BID RF: 0 metoprolol tartrate 50 mg Tablet 50 mg PO DAILY RF: 0 hydrochlorothiazide 25 mg Tablet 25 mg PO DAILY RF: 0 furosemide [Lasix] 20 mg Tablet 20 mg PO DAILY RF: 0 losartan 100 mg Tablet 100 mg PO DAILY RF: 0 gabapentin 300 mg Tablet 300 mg PO BID RF: 0 Trulicity 1.5 mg/0.5 mL Pen Injector 1.5 mg SUBCUT QWEEK RF: 0 Other Ambulatory Orders: Polysomnography (Routine) Facility: [facility] - Location: [facility] Ordered By: Dr. Shari Sharma Referrals / Follow Up: Josh Hernandez MD [Primary Care Provider] - Disposition Disposition (needs filled in before D/C Order can be placed): [facility]-Way Facility
[2021-05-05 16:09] LABS: Cytoplasmic Ab (C-ANCA) <1:20 titer (Neg:<1:20)
--- NOTE | 2021-05-05 16:29 | CASEMGMT ---
SW completed convalescent on HENS. SW faxed orders to [facility]. NOREEN arranged for patient to get picked up at 1800 via bariatric wheelchair van by [facility]. SW notified RN who will notify patient. Senior Sales Consultant, RN at [facility], and patient's daughter were all notified of steel pickler time as well. Plan: d/c to [facility] under skilled level of care on a convalescent stay. [facility] transported patient via bariatric wheelchair van. Sonya Newton AGRICULTURE ENGINEER MITUL
--- NOTE | 2021-05-05 16:43 | NURSING ---
This RN called and gave report to Roni at [facility] and [facility].
[2021-05-05 18:33] LABS: Perinuclear Ab (P-ANCA) <1:20 titer (Neg:<1:20)
--- NOTE | 2021-05-05 20:20 | DS.PCM_ITS ---
Providers Date of Admission: 05/01/21 Date of Discharge: 05/05/21 Primary Care Physician: Dr. Josh Hernandez MD Consultations 05/01/21 16:33 Consult: Nephrology Routine Consulting Provider: Mayra Olmdeo Reason for Consult: LUISA EMERGENT Consult: No MD Notified: Yes Date Notified: 05/02/21 Time Notified: 09:24 Method of Notification: Answering Service Reason For Visit: LUISA / HYPERKALEMIA Diagnosis Discharge Diagnosis (1) Acute renal failure: Status: Acute Code(s): N17.9 - Acute kidney failure, unspecified (2) Acute hyperkalemia: Status: Acute Code(s): E87.5 - Hyperkalemia (3) Essential hypertension: Status: Chronic Code(s): I10 - Essential (primary) hypertension (4) Metabolic encephalopathy: Status: Acute Code(s): G93.41 - Metabolic encephalopathy (5) Morbid obesity: Status: Chronic Code(s): E66.01 - Morbid (severe) obesity due to excess calories (6) Diabetes: Status: Chronic Code(s): E11.9 - Type 2 diabetes mellitus without complications (7) Diabetic neuropathy: Status: Chronic Code(s): E11.40 - Type 2 diabetes mellitus with diabetic neuropathy, unspecified Plan: #1. Acute renal failure #2 metabolic encephalopathy secondary to #1 #3 uncontrolled type 2 diabetes #4 morbid obesity #5 Hyperkalemia #6 essential hypertension #7 acute debility #8 acute cystitis secondary to E. coli Medications at Discharge Home Medications acetaminophen [Tylenol] 650 mg PO Q6H PRN PRN #0 tab 05/05/21 amlodipine 10 mg PO DAILY #0 tab 05/05/21 cephalexin 500 mg PO BID #8 cap 05/05/21 gabapentin 200 mg PO TID #1 cap 05/05/21 metoprolol succinate 50 mg PO BID #0 tab 05/05/21 tolterodine 4 mg PO DAILY #0 cap 05/05/21 Hospital Course Operations None Procedures - (Renal ultrasound) Summary of Care Provided Minutes Spent on Discharge: 32 Hospital Course: This 62-year-old white female presented to the emergency room at [facility] with a chief complaint of hypoglycemia. Patient reported that the day before she started having blood sugar issues with low blood sugars. She is a type II diabetic. Fingerstick blood sugar on arrival to the emergency room was 18 but the patient was awake and talking so it was doubted that this was an accurate glucose. BMP showed a serum blood sugar 44 she was given an amp of D50, blood sugar then corrected into the 70s. BMP was obtained and it was quite abnormal with a sodium of 128, potassium of 5.9, BUN of 81, and a creatinine of 8.02. Liver functions were within normal limits. Patient was admitted to the hospital, she received IV fluids and close monitoring of her blood sugars, her medications were adjusted she was seen in consultation by nephrology. Patient's creatinine improved during her hospital stay and nephrology believe that the patient had poor outpatient oral intake due to her diabetic medication (Trulicity) which can cause nausea. Patient had also been on a diuretic at home and this probably compounded her elevated renal function. Ultrasound of the kidneys were performed which showed no evidence of chronic kidney disease or hydronephrosis. Patient was seen by PT and OT, patient remained weak during her hospitalization and she agreed to short-term placement at a [place] [facility] facility for rehab services. On 05/05/2021, patient was seen and examined: On examination she appeared in [employer] [facility] and spirits, she does not appear to be in any distress. Vital signs as documented. Skin warm and dry and without overt rashes. Neck without JVD, thyroid appears normal, trachea is midline, neck is supple. Lungs clear, normal air movement was noted. Heart exam notable for regular rhythm, normal sounds and absence of murmurs, rubs or gallops. Abdomen unremarkable and without evidence of organomegaly, masses, or abdominal aortic enlargement, bowel sounds are present in all 4 quadrants, no abdominal tenderness was noted. Patient was morbidly obese. Extremities nonedematous, no cyanosis was noted, no clubbing was noted. Neuro: Cranial nerves II through XII are grossly intact, no focal motor deficits were noted, patient exhibited generalized weakness. Psych: Patient is alert and oriented x3, she does not appear anxious or depressed, she does not appear agitated. On 05/05/2021, patient was seen and examined and felt to be stable for discharge to a local extended care facility for inpatient rehab services. Weight / BMI Weight Weight: 144.5 kg Body Mass Index (BMI) 54.6 ABG / Lab / Microbiology Data Result Diagrams: 05/04/21 06:04 05/05/21 05:54 Laboratory: Laboratory Results - last 24 hr 05/04/21 06:04: c-ANCA Antibody <1:20, Atypical p-ANCA <1:20, p-ANCA Antibody <1:20 05/04/21 06:04: Complement C3 167 05/04/21 23:44: POC Glucose 156 H 05/05/21 05:46: POC Glucose 121 H 05/05/21 05:54: Sodium 137, Potassium 3.4 L, Chloride 108 H, Carbon Dioxide 21.0, Anion Gap 8, BUN 49 H, Creatinine 3.78 H, Estim Creat Clear Calc 11.78, Est GFR (MDRD) Af Amer 15 L, Est GFR (MDRD) Non-Af 13 L, BUN/Creatinine Ratio 13.0, Glucose 125 H, Calcium 7.9 L, Phosphorus 3.8 05/05/21 11:08: POC Glucose 140 H Microbiology: Microbiology 05/04/21 10:00 Urine Catheter - Barros Urine Culture - Preliminary Culture exhibits no growth. 05/02/21 10:15 Urine Catheter - Barros Urine Culture - Final Escherichia coli Escherichia coli#2 05/01/21 15:11 Nasal Secretion SARS-CoV-2 Antigen (Rapid) - Final Meaningful Use Info Meaningful Use Diagnoses (Choose all that apply): None applicable Discharge Plan Admission Admit Date/Time: 05/01/21 15:24 Primary Reason for Your Visit: Acute kidney failure Attending Provider: Deep Vinson Primary Care Provider: Josh Hernandez Consulting Providers: Mayra Olmedo Discharge Orders/Prescriptions Prescriptions: New acetaminophen [Tylenol] 325 mg Tablet 650 mg PO Q6H PRN PRN (Reason: Pain Score 1-10/Temp > 100.7 F) Qty: 0 RF: 0 metoprolol succinate 50 mg Tablet Extended Release 24 Hr 50 mg PO BID Qty: 0 RF: 0 tolterodine 4 mg Capsule,Extended Release 24hr 4 mg PO DAILY Qty: 0 RF: 0 amlodipine 10 mg Tablet 10 mg PO DAILY Qty: 0 RF: 0 gabapentin 100 mg capsule 200 mg PO TID Qty: 1 RF: 0 cephalexin 500 mg capsule 500 mg PO BID Qty: 8 RF: 0 Discontinued tolterodine 4 mg Capsule,Extended Release 24hr 4 mg PO Q24H RF: 0 meloxicam 15 mg Tablet 15 mg PO DAILY RF: 0 pioglitazone 45 mg Tablet 45 mg PO DAILY RF: 0 metformin 1,000 mg Tablet 1,000 mg PO BID RF: 0 glimepiride 4 mg Tablet 4 mg PO BID RF: 0 metoprolol tartrate 50 mg Tablet 50 mg PO DAILY RF: 0 hydrochlorothiazide 25 mg Tablet 25 mg PO DAILY RF: 0 furosemide [Lasix] 20 mg Tablet 20 mg PO DAILY RF: 0 losartan 100 mg Tablet 100 mg PO DAILY RF: 0 gabapentin 300 mg Tablet 300 mg PO BID RF: 0 Trulicity 1.5 mg/0.5 mL Pen Injector 1.5 mg SUBCUT QWEEK RF: 0 Other Ambulatory Orders: Polysomnography (Routine) Facility: [facility] - Location: [facility] Ordered By: Dr. Shari Sharma Referrals / Follow Up: Josh Hernandez MD [Primary Care Provider] - Disposition Disposition (needs filled in before D/C Order can be placed): [facility] Facility Charges/Coding Visit Charges Inpatient E&M: 37036 Disch Hosp
[2021-05-05 20:46] LABS: Bedside Glucose 139 mg/dL (70-110)
== END 2021-05-05 18:12 | disposition skilled nursing facility (03) | DRG 682 ==
LOC: ED 15:31 → ICU 15:55 → PCU 05-04 08:06 → ED 05-04 10:07 → ICU 05-04 10:07 → PCU 05-04 10:07
PROVIDERS: Internal Medicine Nephrology; Admitting Provider Internal Medicine; Emergency Provider Emergency Medicine; PCP Family Medicine; Visit Provider Internal Medicine
DX: N17.0 Acute kidney failure with tubular necrosis (principal); G93.41 Metabolic encephalopathy; N30.00 Acute cystitis without hematuria; Z68.43 Body mass index [BMI] 50.0-59.9, adult; E87.1 Hypo-osmolality and hyponatremia; E86.0 Dehydration; E66.01 Morbid (severe) obesity due to excess calories; E87.5 Hyperkalemia; R53.81 Other malaise; B96.20 Unspecified Escherichia coli [E. coli] as the cause of diseases classified elsewhere; E11.40 Type 2 diabetes mellitus with diabetic neuropathy, unspecified; E11.649 Type 2 diabetes mellitus with hypoglycemia without coma; I12.9 Hypertensive chronic kidney disease with stage 1 through stage 4 chronic kidney disease, or unspecified chronic kidney disease; N18.32 Chronic kidney disease, stage 3b; E87.8 Other disorders of electrolyte and fluid balance, not elsewhere classified; E83.52 Hypercalcemia; G89.29 Other chronic pain; Z79.1 Long term (current) use of non-steroidal anti-inflammatories (NSAID); K76.0 Fatty (change of) liver, not elsewhere classified; Z79.84 Long term (current) use of oral hypoglycemic drugs; Z79.899 Other long term (current) drug therapy
CPT/HCPCS: 36415; 76770; 80048; 80053; 81001; 82570; 82962; 83735; 84100; 84300; 84443; 84540; 85025; 86160; 86256; 87077; 87086; 87088; 87186; 87426; 93005; 94640; 97110; 97162; 97166; 97530; 97535; 99251; 99285; J7030; A4216; G0463; J2405

== ENCOUNTER 2022-06-20 09:17 | Inpatient (IN) | payer MEDICARE, BC, SELFPAY ==
[2022-06-20] VITALS (7 sets, daily range): BP systolic 135–175; BP diastolic 69–77; PULSE 78–97; RESP 16–20; TEMP 36.5–37.1; O2SAT 95–99; BMI 51.0; BMI 46.4
--- NOTE | 2022-06-20 09:25 | ED.RN ---
pt reports sat in a chair that she could not get out of and was stuck there for 2 days. lives alone and unable to getout or call for help.
--- NOTE | 2022-06-20 09:29 | EKG12_ITS ---
Test Reason : WEAKNESS Blood Pressure : / mmHG Vent. Rate : 085 BPM Atrial Rate : 085 BPM P-R Int : 170 ms QRS Dur : 092 ms QT Int : 384 ms P-R-T Axes : 050 011 015 degrees QTc Int : 456 ms Normal sinus rhythm Normal ECG Confirmed by ANGE GAMINO, TAMELA ([id number]), material expeditor ADRIÁN MERCER ([id number]) on 06/22/2022 1:10:38 PM Referred By: Confirmed By:TAMELA CASSIDY MD
[2022-06-20] MEDS: 0.9% Normal Saline 1,000 ML 1000 ML IV (09:30)
--- NOTE | 2022-06-20 09:31 | EX.ED.DYSGE1 ---
HPI History of Present Illness Chief Complaint: Weakness Detail of Chief Complaint: Weakness Informant: patient Narrative Narrative: Patient presents the emergency department complaint generalized weakness. She presents via EMS. Patient states that she has been stuck in a chair for 2 days. Patient was on a couch and could not get up. Patient has history of generalized weakness and was discharged from a rehab facility about a week ago and had been there for 3-1/2 weeks. Patient tried calling her sister for help unsuccessfully. She finally decided called EMS today. Patient states that she has an eaten or drank anything in the last 2 days. Patient denies chest pain or shortness of breath. She denies recent illness otherwise. She denies urinary symptoms. [facility] Medical History (Updated 06/20/22 @ 11:[address] Veronica Aceves DO) Acute renal failure Diabetes Diabetic neuropathy Hypertension Morbid obesity Osteoarthritis Urinary incontinence Home Medications acetaminophen 325 mg tablet (Tylenol) 650 mg PO Q6H PRN PRN Pain Score 1-10/Temp > 100.7 F #0 tabs 05/05/21 [Rx Last Taken Unknown] amlodipine 10 mg tablet 10 mg PO DAILY #0 tabs 05/05/21 [Rx Last Taken Unknown] cephalexin 500 mg capsule 500 mg PO BID #8 caps 05/05/21 [Rx Last Taken Unknown] gabapentin 100 mg capsule 200 mg PO TID #1 cap 05/05/21 [Rx Last Taken Unknown] metoprolol succinate 50 mg tablet,extended release 24 hr 50 mg PO BID #0 tabs 05/05/21 [Rx Last Taken Unknown] tolterodine 4 mg capsule,extended release 24 hr 4 mg PO DAILY #0 caps 05/05/21 [Rx Last Taken Unknown] Allergy/AdvReac Type Severity Reaction Status Date / Time latex Allergy Rash Verified 05/01/21 13:35 nickel [Nickel] Allergy Rash Verified 05/01/21 13:35 Family History (Updated 05/01/21 @ 16:[address] Shari Sharma DO) Other Diabetes Hypertension Social History (Updated 05/01/21 @ 16:[address] Shari Sharma DO) Smoking Status: Never smoker alcohol intake: current alcohol intake frequency: 0-2 drinks per day substance use type: does not use ROS ROS ED Review of Systems ROS Unobtainable: other Constitutional Constitutional ED: Reports lethargy; Denies chills, fever(s), sweats or weight loss Eyes Eyes: Denies blurry vision, change in vision or diplopia ENT ENT ED: Denies rhinorrhea or sore throat Cardiovascular Cardiovascular: Denies chest pain, orthopnea or racing heartbeat Respiratory/Chest Respiratory/Chest: Denies cough, dyspnea, dyspnea on exertion, orthopnea or sputum Gastrointestinal Gastrointestinal: Denies abdominal pain, diarrhea, nausea or vomiting Genitourinary Genitourinary ED: Denies dysuria, hematuria or urinary frequency Musculoskeletal Musculoskeletal: Reports other Details: Generalized weakness ; Denies arthralgias, back pain, myalgias or neck pain Integumentary Denies abscess, Abrasions or rash Neurologic Neurologic: Denies headache(s) or weakness Psychiatric Psychiatric: Denies anxiety, depression or suicidal thoughts Endocrine Endocrinology: Denies polydipsia, polyphagia or polyuria Hematologic/Lymphatic Hematologic/Lymphatic: Denies easy bleeding, easy bruising or lymphadenopathy Allergic/Immunologic Allergic/Immunologic ED: Denies mouth swelling, tongue swelling or urticaria EXAM Physical Exam Const Vital Signs: 06/20/22 09:18 06/20/22 09:23 Temperature 97.7 F L Temperature Source Oral Pulse Rate 97 Respiratory Rate 20 H Respiratory Effort Normal Respiratory Pattern Normal Blood Pressure 175/77 H Blood Pressure Mean 109 Pulse Ox 97 Oxygen Delivery Method Room Air Positive well nourished and well developed General Appearance ED: well developed and NAD HEENT Reports TM's clear and moist mucous membranes normocephalic and atraumatic; Negative for trauma or tenderness Tympanic Membrane ED: Yes TM's clear Eyes PERRL and EOMs intact bilaterally General Eye ED: Negative for pale conjunctiva or scleral icterus Neck no lymphadenopathy, supple and no JVD General: Negative for tenderness Chest Wall inspection of chest normal and palpation of chest normal Chest: Negative for tenderness Resp normal respiratory effort and clear to auscultation bilaterally Effort and Inspection: Negative for respiratory distress or pain with movement Auscultation: Negative for rhonchi, wheezes or diminished lung sounds Cardio regular rate, regular rhythm, S1 normal heart sound, S2 normal heart sound and no murmurs Peripheral Pulses: pulses 2+ throughout GI normal to inspection, nondistended, normoactive bowel sounds, soft to palpation, non-tender, non-distended and no masses Back/Spine no CVA tenderness and no thoracic nor lumbar tenderness Extremity normal to inspection General Extremety ED: Negative for edema General Extremity: Negative for edema Neuro oriented x3, CN's II-XII intact bilaterally, no sensory deficits noted and gait normal Sensorium / Orientation: awake, alert, oriented to person, oriented to place and oriented to time Motor Exam: strength 5/5 throughout and strength abnormal Psych mental status grossly normal Skin no rashes or lesions noted and no wounds MDM MDM MDM Narrative Medical decision making narrative: IV line established on arrival. Patient was given normal saline. CBC with differential showed a count of 10.2. Chemistries unremarkable. BUN was 36 and creatinine 1.25. Lactate was normal. Urinalysis was positive for UTI. Urine culture was sent. Patient started on Rocephin 1 g IV. Case will be discussed with hospitalist evaluate for admission given the patient lives alone and was unable to get up from couch for 2 days and concerned about her going home. Patient will need to be evaluated by licensed clinical social worker. Lab Data Attestation: I reviewed the patient's lab results. Labs: Laboratory Results - last 24 hr 06/20/22 06/20/22 06/20/22 09:30 09:30 10:25 WBC 10.2 RBC 4.41 Hgb 12.6 Hct 38.6 MCV 87.5 MCH 28.6 MCHC 32.6 RDW Std Deviation 43.8 RDW Coeff of Raheel 13.8 Plt Count 221 MPV 9.8 Immature Gran % (Auto) 0.600 Neut % (Auto) 76.3 H Lymph % (Auto) 12.[address] % (Auto) 8.0 Eos % (Auto) 2.0 Baso % (Auto) 0.5 Absolute Neuts (auto) 7.8 H Absolute Lymphs (auto) 1.28 Nucleated RBC % 0 Sodium 138 Potassium 3.8 Chloride 103 Carbon Dioxide 26.0 Anion Gap 9 BUN 36 H Creatinine 1.25 H Estim Creat Clear Calc 35.14 Est GFR (MDRD) Af Amer 55 L Est GFR (MDRD) Non-Af 45 L BUN/Creatinine Ratio 28.8 H Glucose 180 H Calcium 9.7 Total Bilirubin 0.90 AST 5 L ALT 17 Alkaline Phosphatase 137 H Total Creatine Kinase 45 Troponin I High Sens 8 Total Protein 7.3 Albumin 3.2 Globulin 4.1 Albumin/Globulin Ratio 0.8 L Urine Color Yellow Urine Clarity Cloudy Urine pH 5.0 Ur Specific [place] 1.020 Urine Protein 100 H Urine Glucose (UA) Normal Urine Ketones 15 H Urine Occult Blood 25 H Urine Nitrite Positive H Urine Bilirubin Negative Urine Urobilinogen Normal Ur Leukocyte Esterase 500 H Urine RBC 0 SEEN Urine WBC 50-100 SEEN Ur Squamous Epith Cells 5-10 SEEN Urine Bacteria 4+ Urine Mucus 0 SEEN EKG Initial EKG: Attestation: I personally reviewed and interpreted this EKG as follows: Comments: Sinus rhythm with a ventricular rate of 85 bpm with no acute ST segment changes Discharge Plan Dx/Rx/DC Orders Clinical Impression: Weakness, Acute UTI, Acute renal insufficiency, Adult failure to thrive Disposition Disposition: Acute Care Hospital [facility]
[2022-06-20 09:48] LABS: Absolute Lymphocyte Count 1.28 X10^3/uL (0.83-4.51); Absolute Neutrophil Count 7.8 X10^3/uL (2.0-7.7); Basophil# 0.05 X10^3/uL; Basophil% 0.5 % (0-1); Hematocrit 38.6 % (37-47); Hemoglobin 12.6 g/dL (12.0-15.0); Lymphocyte # 1.28 X10^3/ul (0.83-4.51); Lymphocyte % 12.6 % (19-41); Mean Corp Hgb Conc 32.6 g/dL (32-36); Mean Corpuscular Hgb 28.6 pg (27.0-32.0); Mean Corpuscular Volume 87.5 fL (81-99); Mean Platelet Vol. 9.8 fl (6.2-12.0); Monocyte# 0.81 X10^3/uL; NRBC Flagged by Analyzer 0 % (0-5); Neutrophil # 7.76 X10^3/uL (2.7-7.7); Neutrophil % 76.3 % (47-70); Platelet Count 221 K/mm3 (150-450); RBC Distribution Width CV 13.8 % (11.6-14.6); RBC Distribution Width SD 43.8 fl (35.1-43.9); Red Blood Count 4.41 M/mm3 (4.2-5.4); White Blood Count 10.2 K/mm3 (4.4-11.0)
[2022-06-20 09:59] LABS: ALB/GLOB Ratio 0.8 RATIO (0.9-2.4); AST(SGOT) 5 U/L (15-37); Alanine Aminotransfer ALT/SGPT 17 U/L (13-56); Albumin, Serum 3.2 g/dL (3.2-5.0); Alkaline Phosphatase 137 U/L (45-117); Anion Gap 9 (5-15); BUN 36 mg/dL (7-18); BUN/Creat Ratio 28.8 RATIO (10-20); CPK Total, Creatine Kinase 45 U/L (26-192); Calcium,Total 9.7 mg/dL (8.5-10.1); Chloride 103 mmol/L (98-107); Creatinine, Serum 1.25 mg/dL (0.55-1.02); EST Glomerular Filtration Rate 45 mL/min (>60); Est Glom Filt Rate - Afr Amer 55 mL/min (>60); Estimated Creatinine Clearance 35.14 ml/min; Globulin 4.1 g/dL (2.2-4.2); Glucose 180 mg/dL (74-106); Potassium 3.8 mmol/L (3.5-5.1); Protein, Total 7.3 g/dL (6.4-8.2); Sodium Level 138 mmol/L (136-145); Troponin-I HS 8 pg/mL (3.0-54.0)
[2022-06-20] MEDS: 0.9% Normal Saline 1,000 ML 150 ML IV (10:26)
[2022-06-20 10:31] LABS: Mucous, Urine 0 SEEN /hpf (<or=2+); Red Blood Cells-Urine 0 SEEN /hpf (0-5)
[2022-06-20 10:36] LABS: Color, Urine Yellow (Yellow); Glucose, Dipstick Normal (Normal); Ketone-Dipstick 15 mg/dl (Negative); Leukocyte Esterase-Dipstick 500 /ul (Negative); Nitrite-Dipstick Positive (Negative); Occult Blood-Urine 25 /ul (Negative); Protein-Dipstick 100 mg/dl (Negative); Urine Bilirubin Dipstick Negative (Negative); Urine Clarity Cloudy (Clear); Urine Urobilinogen Normal (Normal)
[2022-06-20 10:44] LABS: Bacteria 4+ /hpf (None Seen); Squamous Epithelial Cells - UA 5-10 SEEN /hpf (5-10); White Blood Cells 50-100 SEEN /hpf (0-5)
--- NOTE | 2022-06-20 11:22 | NURSING ---
DR PRISCILA WESTON
--- NOTE | 2022-06-20 11:30 | PCM.HP.STD ---
HPI - General General Date of Admission: 06/20/22 Date of Service: 06/20/22 Chief Complaint: Debility/weakness HPI Narrative RAMON VELA, is a 71 F who presented to department was prehospital on 06/20/2022 with a chief complaint of debility and weakness. The patient was recently admitted to [facility] it sounds like in early May for a similar presentation. She was at that time discharged to a rehab facility up in [facility] to be closer to her daughter and was released from their on [facility] eve and went back home. She states that she never did well at home after discharge. She stated that she had difficulty getting to her house immediately and that is why things went downhill. She sat in a chair and was unable to get up out of the chair and was stuck in the chair for 2 days before she was able to call EMS to come into the hospital. She initially tried to call her sister for help but was unsuccessful at contacting her. She had not eaten or drank anything for the last 2 days prior to presentation. She spent approximately 3-1/2 weeks at the rehab facility prior to coming home. She was found in urine and feces as she was not able to get up and I suspect her UTIs as result of this. She reported that at the rehab facility she was at previously she was doing a lot of mobility in a wheelchair however when she got home she was required to use crutches as there is not a significant amount of room for the wheelchair she has. Her admission prior to going to [facility] she was stuck in a chair for 7 days at that time. She also complains that she has bilateral knee and right hip osteoarthritis all of which are need of replacing which increase her debility. I discussed with her that it is likely not safe for her to go home and that her living in environment may need to be changed going forward. The ED requested that she be admitted as she is not able to take care of herself at home. She is agreeable to placement. Vital signs at presentation demonstrated a temperature of 97.7, heart rate 97, blood pressure initially was 175/77 with a repeat of 156/70, respiratory rate is 20, sats were 97% on room air. Her CBC was overall unremarkable other than a left shift with a 76.3% neutrophilia. Her chemistry panel showed a mildly elevated BUN and creatinine at 36 and 1.25. At this time I am unclear what her baseline is running as she has not had any recent laboratory work done here in the past 12 months. Her liver functions were unremarkable. Her CK was 45, troponin was 8. EKG was normal sinus rhythm with normal intervals and no ST-T wave changes consistent with acute ischemia. Her urine showed a specific gravity of 1.02 indicating dehydration had ketones and protein as well as nitrites and leuk esterase. White blood cells were 5200 per high-powered field and she had 4+ bacteria. She was treated with IV fluids and Rocephin in the emergency department. [facility] Medical History Acute renal failure Diabetes Diabetic neuropathy Hypertension Morbid obesity Osteoarthritis Urinary incontinence Home Medications acetaminophen 325 mg tablet (Tylenol) 650 mg PO Q6H PRN PRN Pain Score 1-10/Temp > 100.7 F #0 tabs 05/05/21 [Rx Last Taken Unknown] amlodipine 10 mg tablet 10 mg PO DAILY #0 tabs 05/05/21 [Rx Last Taken Unknown] cephalexin 500 mg capsule 500 mg PO BID #8 caps 05/05/21 [Rx Last Taken Unknown] gabapentin 100 mg capsule 200 mg PO TID #1 cap 05/05/21 [Rx Last Taken Unknown] metoprolol succinate 50 mg tablet,extended release 24 hr 50 mg PO BID #0 tabs 05/05/21 [Rx Last Taken Unknown] tolterodine 4 mg capsule,extended release 24 hr 4 mg PO DAILY #0 caps 05/05/21 [Rx Last Taken Unknown] Allergy/AdvReac Type Severity Reaction Status Date / Time latex Allergy Rash Verified 05/01/21 13:35 nickel [Nickel] Allergy Rash Verified 05/01/21 13:35 Family History Other Diabetes Hypertension no surgical history Social History Smoking Status: Never smoker alcohol intake: current alcohol intake frequency: 0-2 drinks per day substance use type: does not use ROS Constitutional Constitutional: Reports fatigue and weakness; Denies anorexia, change in weight, chills, fever(s), malaise, night sweats or other Eyes Eyes: Denies blurry vision, change in eye color, change in vision, discharge from eye(s), double vision, erythema, eye pain, loss of vision or other ENT HEENT: Denies abnormal hearing, dysphagia, ear pain, epistaxis, headache(s), hearing loss, nasal congestion, nasal discharge, post nasal drip, sinus pressure, sore throat or other Cardiovascular Cardiovascular: Denies chest pain, claudication, dyspnea on exertion, edema, lightheadedness, orthopnea, palpitations, paroxysmal nocturnal dyspnea, rapid heart rate, syncope or other Respiratory/Chest Respiratory/Chest: Denies cough, dyspnea, excessive phlegm production, hemoptysis, productive cough, shortness of breath at rest, shortness of breath with exertion, wheezing or other Gastrointestinal Gastrointestinal: Denies abdominal pain, coffee ground emesis, constipation, diarrhea, dyspepsia, hematemesis, hematochezia, loose stools, melena, nausea, vomiting or other Genitourinary Genitourinary: Reports burning urination, dysuria, urinary frequency and urinary incontinence; Denies difficulty urinating, hematuria, nocturia, urinary hesitancy, urinary urgency or other Musculoskeletal Musculoskeletal: Reports arthralgias, joint pain, joint stiffness and myalgias Neurologic Neurologic: Reports abnormal gait; Denies abnormal speech, confusion, disequilibrium, dizziness, focal weakness, headache(s), numbness, paresthesias, seizure-like activity, seizures, syncope, tingling, tremor(s) or other Psychiatric Psychiatric: Denies anxiety, depression, homicidal ideation, suicidal ideation or other Endocrine Endocrinology: Denies change in body appearance, cold intolerance, excessive sweating, heat intolerance, polydipsia, polyuria or other Hematologic/Lymphatic Hematologic/Lymphatic: Denies anemia, easy bleeding, easy bruising, lymphadenopathy or other Allergic/Immunologic Allergic/Immunologic: Denies rhinitis, hives, eczemia, asthma or other Vital Signs Vital Signs Vital Signs: 06/20/22 09:18 06/20/22 09:23 Temperature 97.7 F L Temperature Source Oral Pulse Rate 97 Respiratory Rate 20 H Respiratory Effort Normal Respiratory Pattern Normal Blood Pressure 175/77 H Blood Pressure Mean 109 Pulse Ox 97 Oxygen Delivery Method Room Air Weight Weight: 130.635 kg Body Mass Index (BMI) 51.0 Physical Exam Const alert, oriented x3, no apparent distress and well nourished Constitutional Narrative: Upper middle-aged white female lying in bed in the emergency department, appears comfortable and nontoxic General Appearance: cooperative HEENT normocephalic, head/scalp atraumatic, hearing grossly normal bilaterally and moist oral mucous membranes HEENT Narrative: Mallampati 3, dentition is fair, no thrush Eyes PERRL, EOMs intact bilaterally and conjunctivae normal Eyes Narrative: No scleral icterus Neck no lymphadenopathy, supple, no JVD and no carotid bruits Neck Narrative: Trachea midline, no thyroid enlargement Resp normal respiratory effort, no retractions, no use of accessory muscles and clear to auscultation bilaterally Resp Narrative: Distant secondary to body habitus Auscultation: Negative for crackles or wheezes Cardio regular rate, regular rhythm, S1 normal heart sound, S2 normal heart sound, no murmurs, no rub, no gallops and no clicks GI normal to inspection, nondistended, normoactive bowel sounds, soft to palpation and non-tender GI Narrative: Large protuberant abdomen with pannus Extremity no clubbing, cyanosis or edema Skin No no rashes or lesions noted, No no wounds, skin turgor normal, no jaundice, no petechiae and no mottling Skin Narrative: Intertrigo candidiasis under pannus and in inguinal region with areas of open excoriated skin Neuro oriented x3, CN's II-XII intact bilaterally, moves all extremities and no focal motor deficits Neuro Narrative: Severe generalized weakness noted Speech: speech normal Psych Psych Narrative: Affect is somewhat flat, eye contact is good, patient is appropriately interactive Results Lab / Micro Data Attestation: I reviewed the patient's lab results. Result Diagrams: 06/20/22 09:30 06/20/22 09:30 Labs: Laboratory Results - last 24 hr 06/20/22 09:30: WBC 10.2, RBC 4.41, Hgb 12.6, Hct 38.6, MCV 87.5, MCH 28.6, MCHC 32.6, RDW Std Deviation 43.8, RDW Coeff of Raheel 13.8, Plt Count 221, MPV 9.8, Immature Gran % (Auto) 0.600, Neut % (Auto) 76.3 H, Lymph % (Auto) 12.6 L, [place] % (Auto) 8.0, Eos % (Auto) 2.0, Baso % (Auto) 0.5, Absolute Neuts (auto) 7.8 H, Absolute Lymphs (auto) 1.28, Nucleated RBC % 0 06/20/22 09:30: Sodium 138, Potassium 3.8, Chloride 103, Carbon Dioxide 26.0, Anion Gap 9, BUN 36 H, Creatinine 1.25 H, Estim Creat Clear Calc 35.14, Est GFR (MDRD) Af Amer 55 L, Est GFR (MDRD) Non-Af 45 L, BUN/Creatinine Ratio 28.8 H, Glucose 180 H, Calcium 9.7, Total Bilirubin 0.90, AST 5 L, ALT 17, Alkaline Phosphatase 137 H, Total Creatine Kinase 45, Troponin I High Sens 8, Total Protein 7.3, Albumin 3.2, Globulin 4.1, Albumin/Globulin Ratio 0.8 L 06/20/22 10:25: Urine Color Yellow, Urine Clarity Cloudy, Urine pH 5.0, Ur Specific [place] 1.020, Urine Protein 100 H, Urine Glucose (UA) Normal, Urine Ketones 15 H, Urine Occult Blood 25 H, Urine Nitrite Positive H, Urine Bilirubin Negative, Urine Urobilinogen Normal, Ur Leukocyte Esterase 500 H, Urine RBC 0 SEEN, Urine WBC 50-100 SEEN, Ur Squamous Epith Cells 5-10 SEEN, Urine Bacteria 4+, Urine Mucus 0 SEEN Assessment & Plan Assessment/Plan (1) Acute UTI: (2) Weakness: (3) Adult failure to thrive: (4) Elevated serum creatinine: (5) Cutaneous candidiasis: PLAN: Plan Acute urinary tract infection -UA with nitrates/leukoesterase/50-100 WBCs per hpf and 4+ bacteria -Urine culture pending -Start ceftriaxone day 1 of 5 for antibiotics -Previous cultures reviewed and they have been E. coli that are pansensitive Debility/weakness/adult failure to thrive -Check COVID -Treat UTI -PT/OT consultation -Patient will most likely need placement at discharge -Consult case management Elevated serum creatinine -No current comparison lab work in our system -Serum creatinine at this time is 1.25 -We will give 1 L of IV fluids and reassess with BMP in the a.m. Cutaneous candidiasis -Located in pannus and inguinal regions -Nystatin powder Hepatic steatosis -This was noted on previously done ultrasound of kidneys from 2021 -Likely related to metabolic dysfunction -Continue to treat confounding diagnoses -Consider outpatient GI follow-up after discharge Hypertension -Continue home metoprolol 50 mg p.o. twice daily -Continue amlodipine 10 mg daily DM-2 -Blood sugar 180 without any p.o. intake on admission -Check hemoglobin A1c -Sliding scale insulin Chronic pain/diabetic neuropathy -Tylenol as needed -Continue home gabapentin Urinary incontinence -Continue tolterodine Morbid obesity -Recommend weight loss -Complicates overall treatment, prognosis, outcomes -BMI is 51 DVT prophylaxis -Lovenox 40 twice daily -SCDs CODE STATUS -Full code Charges/Coding Visit Charges Inpatient E&M: 69479 Init Hosp L3
--- NOTE | 2022-06-20 11:33 | NURSING ---
MED SURG PRISCILA UTI, FAILURE TO THRIVE
[2022-06-20] MEDS: Ceftriaxone 1 GM/50 ML BAG IV (11:35)
[2022-06-20] MEDS: 0.9% Normal Saline 1,000 ML 75 ML IV (14:30)
[2022-06-20] MEDS: Acetaminophen 325 MG Tablet 650 MG PO ×2 (14:31→21:18)
[2022-06-20] MEDS: Gabapentin 100 MG Capsule 200 MG PO (14:31)
[2022-06-20] MEDS: Nystatin Ointment 1 APPLIC TOPICAL ×2 (16:57→21:16)
[2022-06-20] MEDS: Insulin Lispro 100 UNIT/ML INSULN.PEN SC (16:58)
[2022-06-20] MEDS: Insulin Lispro 100 UNIT/ML INSULN.PEN 10 UNIT SC (16:59)
[2022-06-20 17:16] LABS: Bedside Glucose 173 mg/dL (74-106)
[2022-06-20] MEDS: MENTHOL 226.8 GM JAR 1 APPLIC TOPICAL ×2 (18:44→21:07)
[2022-06-20] MEDS: Oxybutynin 5 MG Tablet PO (21:13)
[2022-06-20] MEDS: cycloBENZAPRine HCl 5 MG TABLET PO (21:13)
[2022-06-20] MEDS: Carvedilol 12.5 MG Tablet PO (21:13)
[2022-06-20] MEDS: Enoxaparin 40 MG/0.4 ML Syringe SC (21:14)
[2022-06-20] MEDS: Atorvastatin Calcium 80 MG Tablet PO (21:14)
[2022-06-20 22:25] LABS: Bedside Glucose 126 mg/dL (74-106)
[2022-06-21 03:00] VITALS: BP 140/53; PULSE 73; RESP 18; TEMP 36.6; O2SAT 95
[2022-06-21] MEDS: Acetaminophen 325 MG Tablet 650 MG PO ×2 (03:14→09:20)
[2022-06-21] MEDS: Oxybutynin 5 MG Tablet PO ×3 (05:25→21:59)
[2022-06-21] MEDS: Nystatin Ointment 1 APPLIC TOPICAL ×3 (05:25→21:57)
[2022-06-21] MEDS: cycloBENZAPRine HCl 5 MG TABLET PO ×3 (05:25→21:59)
[2022-06-21 06:28] LABS: Absolute Lymphocyte Count 1.55 X10^3/uL (0.83-4.51); Absolute Neutrophil Count 3.7 X10^3/uL (2.0-7.7); Basophil# 0.04 X10^3/uL; Basophil% 0.7 % (0-1); Eosinophil# 0.22 X10^3/uL; Eosinophils% 3.6 % (0-5); Hematocrit 34.6 % (37-47); Hemoglobin 10.9 g/dL (12.0-15.0); Lymphocyte # 1.55 X10^3/ul (0.83-4.51); Lymphocyte % 25.3 % (19-41); Mean Corp Hgb Conc 31.5 g/dL (32-36); Mean Corpuscular Hgb 27.9 pg (27.0-32.0); Mean Corpuscular Volume 88.5 fL (81-99); Monocyte% 9.8 % (0-10); NRBC Flagged by Analyzer 0 % (0-5); Neutrophil # 3.69 X10^3/uL (2.7-7.7); Neutrophil % 60.3 % (47-70); Platelet Count 183 K/mm3 (150-450); RBC Distribution Width CV 13.9 % (11.6-14.6); RBC Distribution Width SD 44.8 fl (35.1-43.9); Red Blood Count 3.91 M/mm3 (4.2-5.4); White Blood Count 6.1 K/mm3 (4.4-11.0)
[2022-06-21 07:03] LABS: ALB/GLOB Ratio 0.7 RATIO (0.9-2.4); AST(SGOT) 7 U/L (15-37); Alanine Aminotransfer ALT/SGPT 14 U/L (13-56); Albumin, Serum 2.5 g/dL (3.2-5.0); Alkaline Phosphatase 110 U/L (45-117); Anion Gap 7 (5-15); BUN 30 mg/dL (7-18); Chloride 106 mmol/L (98-107); Creatinine, Serum 1.07 mg/dL (0.55-1.02); EST Glomerular Filtration Rate 54 mL/min (>60); Est Glom Filt Rate - Afr Amer 65 mL/min (>60); Estimated Creatinine Clearance 44.65 ml/min; Globulin 3.4 g/dL (2.2-4.2); Glucose 138 mg/dL (74-106); Magnesium 1.5 mg/dL (1.6-2.6); Phosphorus 3.6 mg/dL (2.5-4.9); Potassium 3.7 mmol/L (3.5-5.1); Protein, Total 5.9 g/dL (6.4-8.2); Sodium Level 138 mmol/L (136-145); Thyroid Stim Hormone (TSH) 2.53 uIU/mL (0.358-3.74)
[2022-06-21 07:33] VITALS: O2SAT 95
[2022-06-21 07:56] LABS: Bedside Glucose 128 mg/dL (74-106)
[2022-06-21 09:05] VITALS: BP 144/69; PULSE 85; RESP 16; TEMP 36.6; O2SAT 93
[2022-06-21] MEDS: Insulin Lispro 100 UNIT/ML INSULN.PEN 10 UNIT SC ×3 (09:18→17:12)
[2022-06-21] MEDS: MENTHOL 226.8 GM JAR 1 APPLIC TOPICAL ×4 (09:18→21:57)
[2022-06-21] MEDS: Losartan Potassium 50 MG Tablet PO (09:19)
[2022-06-21] MEDS: Enoxaparin 40 MG/0.4 ML Syringe SC ×2 (09:19→21:58)
[2022-06-21] MEDS: Carvedilol 12.5 MG Tablet PO ×2 (09:19→21:59)
[2022-06-21] MEDS: Famotidine 20 MG Tablet PO (09:19)
[2022-06-21] MEDS: Ceftriaxone 1 GM/50 ML BAG IV (09:38)
[2022-06-21] MEDS: 0.9% Saline Lock 10 ML Syringe IV (09:38)
[2022-06-21] MEDS: Insulin Glargine-YFGN 100 UNIT/ML Pen 10 UNIT SC (11:09)
--- NOTE | 2022-06-21 11:16 | PN.HOSP_ITS ---
Subjective Subjective Follow-up on debility/acute UTI: Patient was seen and examined. She complains of feeling weak. Denies any fever or chills. No other acute events overnight. Objective Data Objective Data Vital Signs: Vital Signs Temp Pulse Resp BP Pulse Ox O2 Del Method 97.8 F 85 16 144/69 H 93 Room Air 06/21/22 09:05 06/21/22 09:05 06/21/22 09:05 06/21/22 09:05 06/21/22 09:05 06/21/22 09:09 Oxygen Delivery Method Room Air Weight: 126.6 kg Body Mass Index (BMI) 46.4 Intake & Output: Intake and Output for Last 24 Hours 06/19/22 06/20/22 06/21/22 23:59 23:59 23:59 Intake Total 2049 / 2049 1074.5 / 1074.5 Output Total 1300 / 1300 850 / 850 Balance 750 / 750 224.5 / 224.5 Lab / Micro Data Result Diagrams: 06/21/22 05:49 06/21/22 05:49 Labs: Laboratory Results - last 24 hr 06/20/22 16:52: POC Glucose 173 H 06/20/22 21:05: POC Glucose 126 H 06/21/22 05:49: WBC 6.1, RBC 3.91 L, Hgb 10.9 L, Hct 34.6 L, MCV 88.5, MCH 27.9, MCHC 31.5 L, RDW Std Deviation 44.8 H, RDW Coeff of Raheel 13.9, Plt Count 183, MPV 10.0, Immature Gran % (Auto) 0.300, Neut % (Auto) 60.3, Lymph % (Auto) 25.3, [place] % (Auto) 9.8, Eos % (Auto) 3.6, Baso % (Auto) 0.7, Absolute Neuts (auto) 3.7, Absolute Lymphs (auto) 1.55, Nucleated RBC % 0 06/21/22 05:49: Sodium 138, Potassium 3.7, Chloride 106, Carbon Dioxide 25.0, Anion Gap 7, BUN 30 H, Creatinine 1.07 H, Estim Creat Clear Calc 44.65, Est GFR (MDRD) Af Amer 65, Est GFR (MDRD) Non-Af 54 L, BUN/Creatinine Ratio 28.0 H, Glucose 138 H, Calcium 9.0, Phosphorus 3.6, Magnesium 1.5 L, Total Bilirubin 0.50, AST 7 L, ALT 14, Alkaline Phosphatase 110, Total Protein 5.9 L, Albumin 2.5 L, Globulin 3.4, Albumin/Globulin Ratio 0.7 L, TSH 2.53 06/21/22 07:32: POC Glucose 128 H Micro: Microbiology 06/20/22 12:35 Nasal Secretion SARS-CoV-2 Antigen (Rapid) - Final Physical Exam Narrative Physical exam: General: Alert, Oriented x3, Cooperative, morbidly obese, appears frail HEENT: Atraumatic Oral: Moist Mucosa Neck: Supple Lungs: Diminished to auscultation Cardiovascular: HS I+II, regular, no murmurs Abdomen: Bowel Sounds Present, Soft, Non Tender Extremities: Trace bilateral leg edema Skin: No rashes, No breakdown Neurological: Grossly intact Psych/Mental Status: Appropriate Assessment & Plan Assessment/Plan (1) Acute UTI: (2) Weakness: (3) Adult failure to thrive: (4) Elevated serum creatinine: (5) Cutaneous candidiasis: PLAN: Plan 1. Acute gram negative trista UTI, continue on follow-up on urine culture 2. Debility related to the above, PT/OT evaluate and treat Case management/social work consult 3. Hypomagnesemia, magnesium 1.5, replace, recheck in 4. Type II DM, complicated by diabetic neuropathy, HgbA1c is pending, blood sugars are fairly controlled Continue with Lantus, Premeal insulin and insulin sliding scale 5. Hypertension, controlled, continue Coreg and losartan 6. Rest of her medical conditions including cutaneous candidiasis, urine incontinence, morbid obesity complicates care Continue on nystatin powder, oxybutynin 7. DVT prophylaxis?Lovenox subcu Charges/Coding Visit Charges Inpatient E&M: 87881 Subs Hosp L2
[2022-06-21 11:35] LABS: Bedside Glucose 182 mg/dL (74-106)
[2022-06-21] MEDS: Insulin Lispro 100 UNIT/ML INSULN.PEN SC ×2 (12:44→17:11)
[2022-06-21 13:10] LABS: Bedside Glucose 176 mg/dL (74-106)
[2022-06-21 13:45] VITALS: BP 131/60; PULSE 73; RESP 18; TEMP 2.8; TEMP 37.1; O2SAT 100
[2022-06-21 16:09] LABS: Hemoglobin A1c 6.1 % (3.8-5.6)
[2022-06-21 16:21] LABS: Bedside Glucose 153 mg/dL (74-106)
[2022-06-21 16:31] VITALS: PULSE 70
[2022-06-21 19:54] VITALS: BP 135/59; PULSE 71; RESP 16; TEMP 36.4; O2SAT 98
[2022-06-21] MEDS: Atorvastatin Calcium 80 MG Tablet PO (21:59)
[2022-06-21 23:55] LABS: Bedside Glucose 145 mg/dL (74-106)
[2022-06-22] VITALS (7 sets, daily range): BP systolic 121–131; BP diastolic 47–94; PULSE 60–80; RESP 16–18; TEMP 36.4–36.8; O2SAT 94–98
[2022-06-22] MEDS: cycloBENZAPRine HCl 5 MG TABLET PO ×3 (06:32→21:06)
[2022-06-22] MEDS: Oxybutynin 5 MG Tablet PO ×3 (06:32→21:06)
[2022-06-22] MEDS: Nystatin Ointment 1 APPLIC TOPICAL ×2 (06:32→13:39)
[2022-06-22] MEDS: Insulin Lispro 100 UNIT/ML INSULN.PEN SC ×3 (06:37→16:12)
[2022-06-22 06:43] LABS: Absolute Lymphocyte Count 1.49 X10^3/uL (0.83-4.51); Absolute Neutrophil Count 3.4 X10^3/uL (2.0-7.7); Basophil# 0.04 X10^3/uL; Basophil% 0.7 % (0-1); Eosinophil# 0.25 X10^3/uL; Eosinophils% 4.4 % (0-5); Hematocrit 33.8 % (37-47); Lymphocyte # 1.49 X10^3/ul (0.83-4.51); Lymphocyte % 26.2 % (19-41); Mean Corp Hgb Conc 32.5 g/dL (32-36); Mean Corpuscular Hgb 28.3 pg (27.0-32.0); Mean Corpuscular Volume 86.9 fL (81-99); Mean Platelet Vol. 9.2 fl (6.2-12.0); Monocyte% 8.8 % (0-10); NRBC Flagged by Analyzer 0 % (0-5); Neutrophil # 3.38 X10^3/uL (2.7-7.7); Neutrophil % 59.5 % (47-70); Platelet Count 176 K/mm3 (150-450); RBC Distribution Width CV 13.7 % (11.6-14.6); RBC Distribution Width SD 42.5 fl (35.1-43.9); Red Blood Count 3.89 M/mm3 (4.2-5.4); White Blood Count 5.7 K/mm3 (4.4-11.0)
[2022-06-22 07:10] LABS: ALB/GLOB Ratio 0.7 RATIO (0.9-2.4); AST(SGOT) 14 U/L (15-37); Alanine Aminotransfer ALT/SGPT 20 U/L (13-56); Albumin, Serum 2.5 g/dL (3.2-5.0); Alkaline Phosphatase 119 U/L (45-117); Anion Gap 6 (5-15); BUN 24 mg/dL (7-18); BUN/Creat Ratio 26.5 RATIO (10-20); Calcium,Total 9.3 mg/dL (8.5-10.1); Chloride 107 mmol/L (98-107); Creatinine, Serum 0.91 mg/dL (0.55-1.02); EST Glomerular Filtration Rate 65 mL/min (>60); Est Glom Filt Rate - Afr Amer 79 mL/min (>60); Globulin 3.6 g/dL (2.2-4.2); Glucose 174 mg/dL (74-106); Magnesium 1.8 mg/dL (1.6-2.6); Potassium 4.1 mmol/L (3.5-5.1); Protein, Total 6.1 g/dL (6.4-8.2); Sodium Level 138 mmol/L (136-145)
[2022-06-22 07:26] LABS: Bedside Glucose 165 mg/dL (74-106)
[2022-06-22] MEDS: Insulin Lispro 100 UNIT/ML INSULN.PEN 10 UNIT SC ×3 (08:09→16:13)
[2022-06-22] MEDS: Famotidine 20 MG Tablet PO (08:10)
[2022-06-22] MEDS: Losartan Potassium 50 MG Tablet PO (08:10)
[2022-06-22] MEDS: MENTHOL 226.8 GM JAR 1 APPLIC TOPICAL ×4 (08:10→21:06)
[2022-06-22] MEDS: Acetaminophen 325 MG Tablet 650 MG PO ×3 (08:13→22:01)
[2022-06-22] MEDS: Enoxaparin 40 MG/0.4 ML Syringe SC ×2 (10:19→21:06)
[2022-06-22] MEDS: Ceftriaxone 1 GM/50 ML BAG IV (10:19)
[2022-06-22] MEDS: Insulin Glargine-YFGN 100 UNIT/ML Pen 15 UNIT SC (10:20)
[2022-06-22] MEDS: Carvedilol 12.5 MG Tablet PO ×2 (10:20→21:06)
[2022-06-22] MEDS: 0.9% Saline Lock 10 ML Syringe IV ×2 (10:21→16:40)
--- NOTE | 2022-06-22 12:00 | CASEMGMT ---
GERSON ENGLISH Assessment: Face to Face with pt for initial transition planning/care coordination assessment. RN TAMEKA introduced self and role at [facility], pt voices understanding and consents to assessment. Pt is A/O x4 and answers all questions appropriately at this time. Pt sitting up in bed in no distress. Care providers, pharmacy, and demographics verified/updated. Admitting Dx: UTI/Debility PCP:Mary and Chrissie Specialists:LEAH Vasquez cardio; Leigha, pod; Stacy, ortho; endo in [facility] Preferred Pharmacy: [facility] Insurance: Bren BEAUCHAMP Prescription Benefit: yes LNOK: Vidya Turk, dtr Living Arrangements: Pt lives alone in a single story home with 3 steps to enter with double rails. Pt reports prior to a couple of mos ago she was I in ADL's. Pt states since being home from the SNF she cannot manage. Pt stuck in her chair and can not get out. Transportation: Pt drives self and denies concerns with transportation. DME/HHC/SNF: Pt has grab bars in the bathroom, crutches that she has used for the last 2 years, FWW, rollator and 20 canes. Pt states she was set up with HHC from [facility] but today would've been the first visit. Pt is unsure of the name of the agency but she does have the phone number to call and cancel. Pt was just dc'd from [facility] on [facility]. Pt states she cannot return home after this hospital stay. States she feels she was dc'd too soon from [facility]. Pt states she went there d/t being close to her dtr but is not sure she wants to return there. She would like her dtr to be involved in decision making and she is able to be told any information regarding the pt stay. Pt is aware that SW will be in to speak with her regarding SNF. Pt states no further concerns/needs. CM to follow. Advised pt to ask CM if any further question/concerns/needs arise, voices understanding. Pt Goal: SNF Plan: SNF
[2022-06-22 12:20] LABS: Bedside Glucose 198 mg/dL (74-106)
--- NOTE | 2022-06-22 13:39 | PCM.PN.HOSP ---
Subjective Subjective Follow-up on debility/acute UTI: Patient was seen and examined.? She complains of feeling weak.? Denies any fever or chills.? No other acute events overnight. Objective Data Objective Data Vital Signs: Vital Signs Temp Pulse Resp BP Pulse Ox O2 Del Method 98.3 F 60 16 129/47 H 95 Room Air 06/22/22 07:43 06/22/22 07:45 06/22/22 07:43 06/22/22 07:43 06/22/22 09:31 06/22/22 09:31 Oxygen Delivery Method Room Air Weight: 126.6 kg Body Mass Index (BMI) 46.4 Intake & Output: Intake and Output for Last 24 Hours 06/20/22 06/21/22 06/22/22 23:59 23:59 23:59 Intake Total 2049 / 0 1178.5 / 1178.5 50 / 50 Output Total 1300 / 1300 2750 / 3650 1800 / 1800 Balance 750 / 750 -1571.5 / -2471.5 -1750 / -1750 Lab / Micro Data Result Diagrams: 06/22/22 06:35 06/22/22 06:35 Labs: Laboratory Results - last 24 hr 06/21/22 05:49: Hemoglobin A1c 6.1 H 06/21/22 16:02: POC Glucose 153 H 06/21/22 22:05: POC Glucose 145 H 06/22/22 06:35: WBC 5.7, RBC 3.89 L, Hgb 11.0 L, Hct 33.8 L, MCV 86.9, MCH 28.3, MCHC 32.5, RDW Std Deviation 42.5, RDW Coeff of Raheel 13.7, Plt Count 176, MPV 9.2, Immature Gran % (Auto) 0.400, Neut % (Auto) 59.5, Lymph % (Auto) 26.2, [place] % (Auto) 8.8, Eos % (Auto) 4.4, Baso % (Auto) 0.7, Absolute Neuts (auto) 3.4, Absolute Lymphs (auto) 1.49, Nucleated RBC % 0 06/22/22 06:35: Sodium 138, Potassium 4.1, Chloride 107, Carbon Dioxide 25.0, Anion Gap 6, BUN 24 H, Creatinine 0.91, Estim Creat Clear Calc 52.50, Est GFR (MDRD) Af Amer 79, Est GFR (MDRD) Non-Af 65, BUN/Creatinine Ratio 26.5 H, Glucose 174 H, Calcium 9.3, Magnesium 1.8, Total Bilirubin 0.40, AST 14 L, ALT 20, Alkaline Phosphatase 119 H, Total Protein 6.1 L, Albumin 2.5 L, Globulin 3.6, Albumin/Globulin Ratio 0.7 L 06/22/22 06:36: POC Glucose 165 H 06/22/22 11:38: POC Glucose 198 H Micro: Microbiology 06/20/22 11:25 Urine, Catheterized Urine Culture - Final Escherichia coli 06/20/22 12:35 Nasal Secretion SARS-CoV-2 Antigen (Rapid) - Final Physical Exam Narrative Physical exam: General: Alert, Oriented x3, Cooperative, morbidly obese, appears frail HEENT: Atraumatic Oral: Moist Mucosa Neck: Supple Lungs: Diminished to auscultation Cardiovascular: HS I+II, regular, no murmurs Abdomen: Bowel Sounds Present, Soft, Non Tender Extremities: Trace bilateral leg edema Skin: No rashes, No breakdown Neurological: Grossly intact Psych/Mental Status: Appropriate Assessment & Plan Assessment/Plan (1) Acute UTI: (2) Weakness: (3) Adult failure to thrive: (4) Elevated serum creatinine: (5) Cutaneous candidiasis: PLAN: Plan 1. Acute E. coli UTI, pansensitive, continue on IV ceftriaxone Will aim for total of 7 days 2. Debility related to the above, PT/OT evaluate and treat Case management/social work consult 3. Hypomagnesemia, magnesium 1.8, replaced, recheck in 4. Type II DM, complicated by diabetic neuropathy, HgbA1c is 6.1, blood sugars are fairly controlled Continue with Lantus 15 units daily, blood glucose checks with insulin sliding scale 5. Hypertension, controlled, continue Coreg and losartan 6. Rest of her medical conditions including cutaneous candidiasis, urine incontinence, morbid obesity complicates care Continue on nystatin powder, oxybutynin 7. DVT prophylaxis?Lovenox subcu Charges/Coding Visit Charges Inpatient E&M: 86911 Subs Hosp L2
--- NOTE | 2022-06-22 15:23 | CASEMGMT ---
Social Work? SW in to meet with pt following update from that pt will need placement at nursing facility. SW introduced self and role at the hospital. Pt agreeable to discussing discharge planning. A list of SNF providers including quality and resource use data and consistent with the patient?s preferred geographic region, medical needs, and insurance network were provided from the [employer] Guide. Pt reviewed list but asked if an answer can be given tomorrow as pt would like to review choices with daughter this evening. SW informed it would be ideal if pt could provide choice today, however pt became upset and overwhelmed. SW offered comfort to pt and assisted with talking away anxiety. Pt shared would be able to provide choices tomorrow morning. ? PLAN: SNF, pending choices? JADEN Donnelly? ?
[2022-06-22 16:36] LABS: Bedside Glucose 175 mg/dL (74-106)
--- NOTE | 2022-06-22 16:58 | CHAPLAIN ---
Type of Pastoral Visit _x__ Initial Visit ___ Follow-up Visit ___ On-call Visit ___ General Patient Visit ___ Spiritual Assessment ___ Family Conference ___ Bereavement ___ Rapid Response ___ Code Blue ___ Other (describe below) Pastoral Care Referral From _x__ Patient ___ Family ___ Nurse ___ Physician ___ High School Assistant Principal ___ Marketing Proposal Coordinator ___ Other (describe below) Sacrament/Intervention _x__ Active listening ___ Anointing ___ Church ___ Bereavement ___ Communion _x__ Adriana exploration ___ _x__ Life review _x__ Prayer ___ Reconciliation ___ Sacrament of Sick _x__ Supportive presence ___ Wedding ___ Other (describe below) Pastoral Comments this was a long visit with patient expressing many feelings concerning her decline in health and the fact of very little family support; pt is facing temporary placement in a [facility] but does not want that to be permanent; pt also acknowledges her adriana in God; conversation and reflective listening allowed the patient to make connections between her situation and her adriana; pt admitted that trust in the God of her adriana is a alarcon need and that she would seek to develop that and live in that during these uncertain times about her future; pt welcomes prayer and asked for future visits if possible
[2022-06-22] MEDS: Atorvastatin Calcium 80 MG Tablet PO (21:06)
[2022-06-22 21:50] LABS: Bedside Glucose 156 mg/dL (74-106)
[2022-06-23] VITALS (9 sets, daily range): BP systolic 134–149; BP diastolic 62–66; PULSE 62–65; RESP 15–18; TEMP 36.6–37.2; O2SAT 94–98
[2022-06-23 05:17] LABS: Absolute Lymphocyte Count 1.61 X10^3/uL (0.83-4.51); Absolute Neutrophil Count 3.1 X10^3/uL (2.0-7.7); Basophil# 0.07 X10^3/uL; Basophil% 1.2 % (0-1); Eosinophil# 0.32 X10^3/uL; Eosinophils% 5.7 % (0-5); Hemoglobin 11.1 g/dL (12.0-15.0); Lymphocyte # 1.61 X10^3/ul (0.83-4.51); Lymphocyte % 28.6 % (19-41); Mean Corp Hgb Conc 32.6 g/dL (32-36); Mean Corpuscular Hgb 28.5 pg (27.0-32.0); Mean Corpuscular Volume 87.2 fL (81-99); Mean Platelet Vol. 9.6 fl (6.2-12.0); Monocyte# 0.51 X10^3/uL; Monocyte% 9.1 % (0-10); NRBC Flagged by Analyzer 0 % (0-5); Neutrophil # 3.08 X10^3/uL (2.7-7.7); Neutrophil % 54.9 % (47-70); Platelet Count 178 K/mm3 (150-450); RBC Distribution Width CV 13.8 % (11.6-14.6); RBC Distribution Width SD 43.6 fl (35.1-43.9); White Blood Count 5.6 K/mm3 (4.4-11.0)
[2022-06-23 05:49] LABS: ALB/GLOB Ratio 0.7 RATIO (0.9-2.4); AST(SGOT) 12 U/L (15-37); Alanine Aminotransfer ALT/SGPT 19 U/L (13-56); Albumin, Serum 2.4 g/dL (3.2-5.0); Alkaline Phosphatase 124 U/L (45-117); Anion Gap 6 (5-15); BUN 23 mg/dL (7-18); BUN/Creat Ratio 23.5 RATIO (10-20); Calcium,Total 9.3 mg/dL (8.5-10.1); Chloride 108 mmol/L (98-107); Creatinine, Serum 0.98 mg/dL (0.55-1.02); EST Glomerular Filtration Rate 60 mL/min (>60); Est Glom Filt Rate - Afr Amer 72 mL/min (>60); Estimated Creatinine Clearance 48.75 ml/min; Globulin 3.6 g/dL (2.2-4.2); Glucose 165 mg/dL (74-106); Magnesium 1.8 mg/dL (1.6-2.6); Potassium 4.1 mmol/L (3.5-5.1); Sodium Level 139 mmol/L (136-145)
[2022-06-23] MEDS: Nystatin Powder 15gm Bottle 1 APPLIC TOPICAL ×3 (05:56→20:57)
[2022-06-23] MEDS: cycloBENZAPRine HCl 5 MG TABLET PO ×3 (05:57→20:57)
[2022-06-23] MEDS: Oxybutynin 5 MG Tablet PO ×3 (05:57→20:56)
[2022-06-23] MEDS: Insulin Lispro 100 UNIT/ML INSULN.PEN 10 UNIT SC ×2 (08:05→11:59)
[2022-06-23] MEDS: Losartan Potassium 50 MG Tablet PO (08:06)
[2022-06-23] MEDS: Famotidine 20 MG Tablet PO (08:06)
[2022-06-23] MEDS: MENTHOL 226.8 GM JAR 1 APPLIC TOPICAL ×4 (08:06→20:56)
[2022-06-23] MEDS: Enoxaparin 40 MG/0.4 ML Syringe SC ×2 (08:07→20:57)
[2022-06-23] MEDS: Carvedilol 12.5 MG Tablet PO ×2 (08:07→20:56)
[2022-06-23 09:11] LABS: Bedside Glucose 143 mg/dL (74-106)
[2022-06-23] MEDS: Insulin Glargine-YFGN 100 UNIT/ML Pen 15 UNIT SC (10:03)
[2022-06-23] MEDS: Ceftriaxone 1 GM/50 ML BAG IV (10:03)
--- NOTE | 2022-06-23 11:19 | PCM.PN.HOSP ---
Subjective Subjective Follow-up on debility/acute UTI: Patient was seen and examined.? No new complaints overnight. Denies any fever or chills. Awaiting on discharge planning. Objective Data Objective Data Vital Signs: Vital Signs Temp Pulse Resp BP Pulse Ox O2 Del Method 98.5 F 63 18 134/62 H 98 Room Air 06/23/22 09:05 06/23/22 09:05 06/23/22 09:05 06/23/22 09:05 06/23/22 09:05 06/23/22 09:05 Oxygen Delivery Method Room Air Weight: 126.6 kg Body Mass Index (BMI) 46.4 Intake & Output: Intake and Output for Last 24 Hours 06/21/22 06/22/22 06/23/22 23:59 23:59 23:59 Intake Total 1178.5 / 1178.5 154 / 454 454 / 454 Output Total 2750 / 3650 2800 / 3400 600 / 600 Balance -1571.5 / -2471.5 -2646 / -2946 -146 / -146 Lab / Micro Data Result Diagrams: 06/23/22 04:53 06/23/22 04:53 Labs: Laboratory Results - last 24 hr 06/22/22 11:38: POC Glucose 198 H 06/22/22 16:09: POC Glucose 175 H 06/22/22 21:09: POC Glucose 156 H 06/23/22 04:53: WBC 5.6, RBC 3.90 L, Hgb 11.1 L, Hct 34.0 L, MCV 87.2, MCH 28.5, MCHC 32.6, RDW Std Deviation 43.6, RDW Coeff of Raheel 13.8, Plt Count 178, MPV 9.6, Immature Gran % (Auto) 0.500, Neut % (Auto) 54.9, Lymph % (Auto) 28.6, [place] % (Auto) 9.1, Eos % (Auto) 5.7 H, Baso % (Auto) 1.2 H, Absolute Neuts (auto) 3.1, Absolute Lymphs (auto) 1.61, Nucleated RBC % 0 06/23/22 04:53: Sodium 139, Potassium 4.1, Chloride 108 H, Carbon Dioxide 25.0, Anion Gap 6, BUN 23 H, Creatinine 0.98, Estim Creat Clear Calc 48.75, Est GFR (MDRD) Af Amer 72, Est GFR (MDRD) Non-Af 60, BUN/Creatinine Ratio 23.5 H, Glucose 165 H, Calcium 9.3, Magnesium 1.8, Total Bilirubin 0.30, AST 12 L, ALT 19, Alkaline Phosphatase 124 H, Total Protein 6.0 L, Albumin 2.4 L, Globulin 3.6, Albumin/Globulin Ratio 0.7 L 06/23/22 08:04: POC Glucose 143 H Micro: Microbiology 06/20/22 11:25 Urine, Catheterized Urine Culture - Final Escherichia coli 06/20/22 12:35 Nasal Secretion SARS-CoV-2 Antigen (Rapid) - Final Physical Exam Narrative Physical exam: General: Alert, Oriented x3, Cooperative, morbidly obese, appears frail HEENT: Atraumatic Oral: Moist Mucosa Neck: Supple Lungs: Diminished to auscultation Cardiovascular: HS I+II, regular, no murmurs Abdomen: Bowel Sounds Present, Soft, Non Tender Extremities: Trace bilateral leg edema Skin: No rashes, No breakdown Neurological: Grossly intact Psych/Mental Status: Appropriate Assessment & Plan Assessment/Plan (1) Acute UTI: (2) Weakness: (3) Adult failure to thrive: (4) Elevated serum creatinine: (5) Cutaneous candidiasis: PLAN: Plan 1. Acute E. coli UTI, pansensitive, continue on IV ceftriaxone Will aim for total of 7 days 2. Debility related to the above, PT/OT evaluate and treat Case management/social work consult 3. Hypomagnesemia, magnesium 1.8, replaced, recheck in 4. Type II DM, complicated by diabetic neuropathy, HgbA1c is 6.1, blood sugars are fairly controlled Continue with Lantus 15 units daily, blood glucose checks with insulin sliding scale 5. Hypertension, controlled, continue Coreg and losartan 6. Rest of her medical conditions including cutaneous candidiasis, urine incontinence, morbid obesity complicates care Continue on nystatin powder, oxybutynin 7. DVT prophylaxis?Lovenox subcu Charges/Coding Visit Charges Inpatient E&M: 81293 Subs Hosp L1
[2022-06-23 11:26] LABS: Bedside Glucose 137 mg/dL (74-106)
--- NOTE | 2022-06-23 11:43 | CASEMGMT ---
Addendum entered by Kisha Resendiz 06/23/22 14:40: [facility] to [facility]. [facility] able to accept. SW updated MD Neal. stated pt will d/c tomorrow. SW informed pt of D/C tomorrow. JADEN Donnelly Original Note: Social Work SW noticed pt and pt daughter responded in [facility] regarding Pt choice for SNF. Referral was sent to selected choices. PLAN: SNF, pending acceptance. JADEN Donnelly
[2022-06-23 16:25] LABS: Bedside Glucose 91 mg/dL (74-106)
[2022-06-23 18:46] LABS: Bedside Glucose 110 mg/dL (74-106)
[2022-06-23] MEDS: Atorvastatin Calcium 80 MG Tablet PO (20:57)
[2022-06-23] MEDS: Acetaminophen 325 MG Tablet 650 MG PO (21:06)
[2022-06-23 21:20] LABS: Bedside Glucose 186 mg/dL (74-106)
[2022-06-24] VITALS (7 sets, daily range): BP systolic 132–154; BP diastolic 56–68; PULSE 57–69; RESP 16–18; TEMP 36.6–37; O2SAT 95–97
[2022-06-24] MEDS: Acetaminophen 325 MG Tablet 650 MG PO ×2 (04:16→16:41)
[2022-06-24 05:48] LABS: Absolute Lymphocyte Count 1.82 X10^3/uL (0.83-4.51); Absolute Neutrophil Count 3.5 X10^3/uL (2.0-7.7); Basophil# 0.05 X10^3/uL; Basophil% 0.8 % (0-1); Eosinophil# 0.31 X10^3/uL; Hematocrit 34.3 % (37-47); Hemoglobin 11.5 g/dL (12.0-15.0); Lymphocyte # 1.82 X10^3/ul (0.83-4.51); Lymphocyte % 29.4 % (19-41); Mean Corp Hgb Conc 33.5 g/dL (32-36); Mean Corpuscular Hgb 29.2 pg (27.0-32.0); Mean Corpuscular Volume 87.1 fL (81-99); Mean Platelet Vol. 9.8 fl (6.2-12.0); Monocyte# 0.47 X10^3/uL; Monocyte% 7.6 % (0-10); NRBC Flagged by Analyzer 0 % (0-5); Neutrophil % 56.7 % (47-70); Platelet Count 184 K/mm3 (150-450); RBC Distribution Width CV 13.5 % (11.6-14.6); RBC Distribution Width SD 42.4 fl (35.1-43.9); Red Blood Count 3.94 M/mm3 (4.2-5.4); White Blood Count 6.2 K/mm3 (4.4-11.0)
[2022-06-24 06:09] LABS: ALB/GLOB Ratio 0.8 RATIO (0.9-2.4); AST(SGOT) 10 U/L (15-37); Alanine Aminotransfer ALT/SGPT 21 U/L (13-56); Albumin, Serum 2.7 g/dL (3.2-5.0); Alkaline Phosphatase 137 U/L (45-117); Anion Gap 8 (5-15); BUN 25 mg/dL (7-18); BUN/Creat Ratio 24.5 RATIO (10-20); Calcium,Total 9.6 mg/dL (8.5-10.1); Chloride 105 mmol/L (98-107); Creatinine, Serum 1.02 mg/dL (0.55-1.02); EST Glomerular Filtration Rate 57 mL/min (>60); Est Glom Filt Rate - Afr Amer 69 mL/min (>60); Estimated Creatinine Clearance 46.84 ml/min; Globulin 3.6 g/dL (2.2-4.2); Glucose 182 mg/dL (74-106); Magnesium 1.5 mg/dL (1.6-2.6); Potassium 4.2 mmol/L (3.5-5.1); Protein, Total 6.3 g/dL (6.4-8.2); Sodium Level 138 mmol/L (136-145)
[2022-06-24] MEDS: cycloBENZAPRine HCl 5 MG TABLET PO ×2 (06:27→13:44)
[2022-06-24] MEDS: Oxybutynin 5 MG Tablet PO ×2 (06:28→13:44)
[2022-06-24] MEDS: Nystatin Powder 15gm Bottle 1 APPLIC TOPICAL ×2 (06:28→13:44)
[2022-06-24] MEDS: Insulin Lispro 100 UNIT/ML INSULN.PEN SC ×2 (07:27→11:06)
[2022-06-24] MEDS: Insulin Lispro 100 UNIT/ML INSULN.PEN 10 UNIT SC ×3 (07:27→16:42)
[2022-06-24 08:15] LABS: Bedside Glucose 161 mg/dL (74-106)
[2022-06-24] MEDS: Losartan Potassium 50 MG Tablet PO (09:17)
[2022-06-24] MEDS: MENTHOL 226.8 GM JAR 1 APPLIC TOPICAL ×2 (09:17→13:44)
[2022-06-24] MEDS: Famotidine 20 MG Tablet PO (09:17)
[2022-06-24] MEDS: Carvedilol 12.5 MG Tablet PO (09:17)
[2022-06-24] MEDS: Ceftriaxone 1 GM/50 ML BAG IV (09:17)
[2022-06-24] MEDS: Insulin Glargine-YFGN 100 UNIT/ML Pen 15 UNIT SC (09:18)
[2022-06-24] MEDS: Enoxaparin 40 MG/0.4 ML Syringe SC (09:18)
[2022-06-24 11:26] LABS: Bedside Glucose 176 mg/dL (74-106)
--- NOTE | 2022-06-24 14:12 | PCM.TXEXTCAR ---
Diet Diet Order/Speech Therapy: 06/20/22 13:00 Diet: Cardiac - Heart Healthy Food consistency:: Regular Liquid Consistency:: Regular/Thin Is pt able to select menu?: Yes Diet: Consistent Carb - Calorie Controlled Food consistency:: Regular Liquid Consistency:: Regular/Thin How many daily calories?: 1800 calorie Routine Orders/Code Status Suppository Type: Dulcolax 10mg Suppository Frequency: Daily PRN Routine Lab Work: CBC (within 3 days ) and - (CMP with 3 days) Code Status: Full Code Wound(s) buttocks: Wound Type: Pressure Injury Therapies Weight Bearing: Weight bearing as tolerated Physical Therapy: Eval and Treat Occupational Therapy: Eval and Treat Problem/Diagnosis (1) Acute UTI: Status: Acute Code(s): N39.0 - Urinary tract infection, site not specified (2) Weakness: Status: Acute Code(s): R53.1 - Weakness (3) Adult failure to thrive: Status: Acute Code(s): R62.7 - Adult failure to thrive (4) Elevated serum creatinine: Status: Acute Code(s): R79.89 - Other specified abnormal findings of blood chemistry (5) Cutaneous candidiasis: Status: Acute Code(s): B37.2 - Candidiasis of skin and nail Plan 1. Acute E. coli UTI 2. Debility 3. Hypomagnesemia 4. Type II DM, complicated by diabetic neuropathy 5. Hypertension 6.Cutaneous candidiasis 7. Urine incontinence 8. Morbid obesity Allergies/Procedures Done in Hospital Allergies latex Allergy (Verified 05/01/21 13:35) Rash nickel [Nickel] Allergy (Verified 05/01/21 13:35) Rash Procedures: None Type of Care/Length of Stay Estimated LOS: Convalescent Care Less Than 30 days Type of Care Needed: Skilled Rehab Potential: Good Prognosis: Good Additional Orders/Day of Discharge Day of Discharge: 06/24/22 Dietary and Speech Recommendations Dietitian Recommendations/Changes: Will continue 1800 jerrod Consistent CHO/Cardiac diet as ordered Discharge Plan Admission Admit Date/Time: 06/20/22 11:22 Primary Reason for Your Visit: Debility/UTI Attending Provider: Aimee Neal Primary Care Provider: Josh Hernandez Consulting Providers: Shari Sharma Discharge Orders/Prescriptions Prescriptions: New insulin glargine-yfgn 100 unit/mL (3 mL) Insulin Pen 15 unit subcut DAILY Qty: 0 0RF albuterol sulfate 2.5 mg /3 mL (0.083 %) Solution For Nebulization 2.5 mg inhalation Q2H PRN PRN (Reason: Shortness of Breath/Wheezing) Qty: 0 0RF nystatin [Nyamyc] 100,000 unit/gram Powder 1 applic topical TID Qty: 0 0RF Protocol: *Topical Application Instructions APPLICATION INSTRUCTIONS: apply to groin cefdinir 300 mg capsule 300 mg PO BID 4 Days Qty: 8 0RF magnesium 250 mg tablet 250 mg PO DAILY 30 Days Qty: 30 0RF Continued acetaminophen [Tylenol] 325 mg Tablet 650 mg PO Q6H PRN PRN (Reason: Pain Score 1-10/Temp > 100.7 F) Qty: 0 0RF losartan 50 mg Tablet 50 mg PO DAILY metformin 500 mg tablet 500 mg PO BID atorvastatin 80 mg tablet 80 mg PO QHS Label Comments: 1 tablet by mouth as directed carvedilol 12.5 mg tablet 12.5 mg PO BID Label Comments: 1 tablet by mouth as directed famotidine 20 mg tablet 20 mg PO BID Label Comments: take 1 tablet by mouth twice a day oxybutynin chloride 5 mg tablet 5 mg PO TID Label Comments: TAKE 1 TABLET BY MOUTH 3 TIMES A DAY cyclobenzaprine 5 mg tablet 5 mg PO TID Label Comments: take 1 tablet by mouth three times a day diclofenac sodium 1 % gel 1 ea TOPICAL 4X/DAY Humalog KwikPen Insulin 200 unit/mL (3 mL) insulin pen 10 unit SUBCUT TIDCM Rx Instructions: hold for meal consumption <50% Discontinued metoprolol tartrate 50 mg tablet 50 mg PO BID insulin glargine [Lantus Solostar U-100 Insulin] 100 unit/mL (3 mL) insulin pen 40 unit SUBCUT DAILY Label Comments: 1 pen injector subcutaneously as directed Referrals / Follow Up: Josh Hernandez MD [Primary Care Provider] - In 1 Week Disposition Disposition (needs filled in before D/C Order can be placed): Longterm Facility
--- NOTE | 2022-06-24 14:23 | PCM.DC.SUM ---
Providers Date of Admission: 06/20/22 Date of Discharge: 06/24/22 Primary Care Physician: Dr. Josh Hernandez MD Reason For Visit: UTI/DEBILITY Diagnosis Discharge Diagnosis (1) Acute UTI: Status: Acute Code(s): N39.0 - Urinary tract infection, site not specified (2) Weakness: Status: Acute Code(s): R53.1 - Weakness (3) Adult failure to thrive: Status: Acute Code(s): R62.7 - Adult failure to thrive (4) Elevated serum creatinine: Status: Acute Code(s): R79.89 - Other specified abnormal findings of blood chemistry (5) Cutaneous candidiasis: Status: Acute Code(s): B37.2 - Candidiasis of skin and nail Plan 1. Acute E. coli UTI 2. Debility 3. Hypomagnesemia 4. Type II DM, complicated by diabetic neuropathy 5. Hypertension 6.Cutaneous candidiasis 7. Urine incontinence 8. Morbid obesity Medications at Discharge Home Medications acetaminophen 325 mg tablet (Tylenol) 650 mg PO Q6H PRN PRN Pain Score 1-10/Temp > 100.7 F #0 tabs 05/05/21 atorvastatin 80 mg tablet 80 mg PO QHS cholesterol 06/20/22 carvedilol 12.5 mg tablet 12.5 mg PO BID htn 06/20/22 cyclobenzaprine 5 mg tablet 5 mg PO TID muscle spasms 06/20/22 diclofenac sodium 1 % topical gel 1 ea topical 4X/DAY left hip pain 06/20/22 famotidine 20 mg tablet 20 mg PO BID indigestion 06/20/22 insulin lispro 200 unit/mL (3 mL) subcutaneous pen (Humalog KwikPen U-200 Insulin) 10 unit subcut TIDCM blood glucose 06/20/22 losartan 50 mg tablet 50 mg PO DAILY htn 06/20/22 metformin 500 mg tablet 500 mg PO BID dm 06/20/22 oxybutynin chloride 5 mg tablet 5 mg PO TID bladder 06/20/22 albuterol sulfate 2.5 mg/3 mL (0.083 %) solution for nebulization 2.5 mg (3 mL) inhalation Q2H PRN PRN Shortness of Breath/Wheezing #0 mL 06/24/22 cefdinir 300 mg capsule 300 mg PO BID 4 days #8 caps 06/24/22 insulin glargine-yfgn 100 unit/mL (3 mL) subcutaneous pen 15 unit (0.15 mL) subcut DAILY #0 mL 06/24/22 magnesium 250 mg tablet 250 mg PO DAILY 30 days #30 tabs 06/24/22 nystatin 100,000 unit/gram topical powder (Nyamyc) 1 applic topical TID #0 grams 06/24/22 Hospital Course Operations None Procedures None Summary of Care Provided Minutes Spent on Discharge: 35 Hospital Course: 67-year-old female past medical history of type II DM, who comes in with complaints of weakness. Patient was recently discharged from [facility] and discharged to subacute rehab facility where she has been about 3 and half weeks. Patient was released a day before [place] however she had difficulty getting around her house and doing activities of daily living. She was found in urine and feces. Patient was so weak that she was stuck in a chair for 2 days. She called the EMS and was brought to the ED. Patient was found to have acute UTI and was admitted to the MedSurg floor. On the MedSurg floor, she had evidence of hypomagnesemia that was replaced. Urine cultures grew E. coli that was relatively pansensitive. Patient had episode of hypoglycemia and her insulin doses were decreased. She was seen by PT and OT and skilled for [facility]. She was discharged on cefdinir to complete 1 week of treatment. Rate of discharge, patient was seen and examined. Denied any new complaints Physical Exam Narrative General: Alert, Oriented x3, Cooperative, morbidly obese, appears frail HEENT: Atraumatic Oral: Moist Mucosa Neck: Supple Lungs: Diminished to auscultation Cardiovascular: HS I+II, regular, no murmurs Abdomen: Bowel Sounds Present, Soft, Non Tender Extremities: Trace bilateral leg edema Skin: No rashes, No breakdown Neurological: Grossly intact Psych/Mental Status: Appropriate Weight / BMI Weight Weight: 126.6 kg Body Mass Index (BMI) 46.4 ABG / Lab / Microbiology Data Result Diagrams: 06/24/22 05:07 06/24/22 05:07 Laboratory: Laboratory Results - last 24 hr 06/23/22 16:07: POC Glucose 91 06/23/22 17:35: POC Glucose 110 H 06/23/22 20:55: POC Glucose 186 H 06/24/22 05:07: WBC 6.2, RBC 3.94 L, Hgb 11.5 L, Hct 34.3 L, MCV 87.1, MCH 29.2, MCHC 33.5, RDW Std Deviation 42.4, RDW Coeff of Raheel 13.5, Plt Count 184, MPV 9.8, Immature Gran % (Auto) 0.500, Neut % (Auto) 56.7, Lymph % (Auto) 29.4, [place] % (Auto) 7.6, Eos % (Auto) 5.0, Baso % (Auto) 0.8, Absolute Neuts (auto) 3.5, Absolute Lymphs (auto) 1.82, Nucleated RBC % 0 06/24/22 05:07: Sodium 138, Potassium 4.2, Chloride 105, Carbon Dioxide 25.0, Anion Gap 8, BUN 25 H, Creatinine 1.02, Estim Creat Clear Calc 46.84, Est GFR (MDRD) Af Amer 69, Est GFR (MDRD) Non-Af 57 L, BUN/Creatinine Ratio 24.5 H, Glucose 182 H, Calcium 9.6, Magnesium 1.5 L, Total Bilirubin 0.30, AST 10 L, ALT 21, Alkaline Phosphatase 137 H, Total Protein 6.3 L, Albumin 2.7 L, Globulin 3.6, Albumin/Globulin Ratio 0.8 L 06/24/22 07:24: POC Glucose 161 H 06/24/22 11:04: POC Glucose 176 H Microbiology: Microbiology 06/20/22 11:25 Urine, Catheterized Urine Culture - Final Escherichia coli 06/20/22 12:35 Nasal Secretion SARS-CoV-2 Antigen (Rapid) - Final D/C Instructions Discharge Diet: Low fat / Low cholesterol, 1800 Calorie Control Diet, 2000 mg Sodium Diet and Carb Control Diet Meaningful Use Info Meaningful Use Diagnoses (Choose all that apply): None applicable Discharge Plan Admission Admit Date/Time: 06/20/22 11:22 Primary Reason for Your Visit: Debility/UTI Attending Provider: Aimee Neal Primary Care Provider: Josh Hernandez Consulting Providers: Shari Sharma Discharge Orders/Prescriptions Prescriptions: New insulin glargine-yfgn 100 unit/mL (3 mL) Insulin Pen 15 unit subcut DAILY Qty: 0 0RF albuterol sulfate 2.5 mg /3 mL (0.083 %) Solution For Nebulization 2.5 mg inhalation Q2H PRN PRN (Reason: Shortness of Breath/Wheezing) Qty: 0 0RF nystatin [Nyamyc] 100,000 unit/gram Powder 1 applic topical TID Qty: 0 0RF Protocol: *Topical Application Instructions APPLICATION INSTRUCTIONS: apply to groin cefdinir 300 mg capsule 300 mg PO BID 4 Days Qty: 8 0RF magnesium 250 mg tablet 250 mg PO DAILY 30 Days Qty: 30 0RF Continued acetaminophen [Tylenol] 325 mg Tablet 650 mg PO Q6H PRN PRN (Reason: Pain Score 1-10/Temp > 100.7 F) Qty: 0 0RF losartan 50 mg Tablet 50 mg PO DAILY metformin 500 mg tablet 500 mg PO BID atorvastatin 80 mg tablet 80 mg PO QHS Label Comments: 1 tablet by mouth as directed carvedilol 12.5 mg tablet 12.5 mg PO BID Label Comments: 1 tablet by mouth as directed famotidine 20 mg tablet 20 mg PO BID Label Comments: take 1 tablet by mouth twice a day oxybutynin chloride 5 mg tablet 5 mg PO TID Label Comments: TAKE 1 TABLET BY MOUTH 3 TIMES A DAY cyclobenzaprine 5 mg tablet 5 mg PO TID Label Comments: take 1 tablet by mouth three times a day diclofenac sodium 1 % gel 1 ea TOPICAL 4X/DAY Humalog KwikPen Insulin 200 unit/mL (3 mL) insulin pen 10 unit SUBCUT TIDCM Rx Instructions: hold for meal consumption <50% Discontinued metoprolol tartrate 50 mg tablet 50 mg PO BID insulin glargine [Lantus Solostar U-100 Insulin] 100 unit/mL (3 mL) insulin pen 40 unit SUBCUT DAILY Label Comments: 1 pen injector subcutaneously as directed Referrals / Follow Up: Josh Hernandez MD [Primary Care Provider] - In 1 Week Disposition Disposition (needs filled in before D/C Order can be placed): Nursing Home Facility Charges/Coding Visit Charges Inpatient E&M: 15051 Disch Hosp >30min
--- NOTE | 2022-06-24 15:37 | CASEMGMT ---
Social Work Per physician, pt is ready for discharge today. 7000 convalescent exemption form completed in [facility] and sent along with orders to [facility]. Transportation arranged with [facility] for 5:30 pickup via wheelchair. Pt updated of time and cost of transport and is agreeable. Nursing updated on discharge time. VM left pt dgt Vidya of discharge plan. Disposition: [facility], skilled level of care under convalescent stay salo Herrera
[2022-06-24 17:15] LABS: Bedside Glucose 135 mg/dL (74-106)
--- NOTE | 2022-06-24 21:01 | NURSING ---
Report given to [facility], pt assisted into wheelchair, escorted to elevator
== END 2022-06-24 21:00 | DRG 690 ==
LOC: ED 11:41 → MS3 12:38
PROVIDERS: Admitting Provider Internal Medicine; Emergency Provider Emergency Medicine; PCP Family Medicine; Visit Provider Internal Medicine
DX: N39.0 Urinary tract infection, site not specified (principal); Z68.42 Body mass index [BMI] 45.0-49.9, adult; E11.649 Type 2 diabetes mellitus with hypoglycemia without coma; R62.7 Adult failure to thrive; E11.40 Type 2 diabetes mellitus with diabetic neuropathy, unspecified; B37.2 Candidiasis of skin and nail; B96.20 Unspecified Escherichia coli [E. coli] as the cause of diseases classified elsewhere; E66.01 Morbid (severe) obesity due to excess calories; Z79.4 Long term (current) use of insulin; K76.0 Fatty (change of) liver, not elsewhere classified; E86.0 Dehydration; I10 Essential (primary) hypertension; E83.42 Hypomagnesemia; M16.11 Unilateral primary osteoarthritis, right hip; M17.0 Bilateral primary osteoarthritis of knee; R32 Unspecified urinary incontinence; G89.29 Other chronic pain; N28.9 Disorder of kidney and ureter, unspecified; Z79.899 Other long term (current) drug therapy
CPT/HCPCS: 36415; 80053; 81001; 82550; 82962; 83036; 83735; 84100; 84443; 84484; 85025; 87077; 87086; 87088; 87186; 87811; 93005; 97162; 97166; 97530; 97535; 97802; 99252; 99285; J7030; J7050; A4216; G0463

== ENCOUNTER 2023-05-05 20:47 | Emergency (ER) | payer MEDICARE, BC, SELFPAY ==
[2023-05-05] VITALS (10 sets, daily range): BP systolic 125–159; BP diastolic 69–107; PULSE 69–79; RESP 12–28; TEMP 36.2–36.6; O2SAT 96–100; BMI 47.9
--- NOTE | 2023-05-05 21:35 | RAD_ITS ---
STUDY: X-RAY - PELVIS AND LEFT HIP REASON FOR EXAM: Female, 72 years old. PAIN TECHNIQUE: 3 views of the pelvis and hip. COMPARISON: 08/28/2015 FINDINGS: There is a non-specific bowel gas pattern. Normal visualized soft tissue structures. Normal bilateral iliac wings, sacroiliac joints and visualized sacrum. Normal bilateral superior and inferior pubic rami. Normal pubic symphysis. Normal bilateral ischial tuberosities. Status post left hip arthroplasty. Superior dislocation of the femoral head component. . RAD/HIP, UNI W/ Pelvis 2-3 Views IMPRESSION: Dislocation of left hip arthroplasty prosthesis. Electronically Signed: Jose G Lewis MD at 22:03 EST ,
[2023-05-05] MEDS: Propofol 200 MG/20 ML Vial IV BOLUS (22:55)
[2023-05-05] MEDS: Midazolam 5 MG/ML Syringe IV (22:57)
[2023-05-05] MEDS: 0.9% Normal Saline (1000mL) 1,000 ML 999 ML IV (23:09)
--- NOTE | 2023-05-05 23:20 | RAD_ITS ---
STUDY: X-RAY - PELVIS REASON FOR EXAM: Female, 72 years old. dislocation TECHNIQUE: One view of the pelvis was obtained. COMPARISON: Earlier today FINDINGS: There is a non-specific bowel gas pattern. Normal visualized soft tissue structures. Normal bilateral iliac wings, sacroiliac joints and visualized sacrum. Normal visualized bilateral superior and inferior pubic rami. Normal pubic symphysis. Normal ischial tuberosities. Status post right hip arthroplasty. The prosthesis appears located. No ostial lysis to suggest loosening.. Status post left hip arthroplasty. Persistent superior dislocation of the femoral head portion of the prosthesis. . RAD/Pelvis 1 or 2 Views IMPRESSION: Persistent dislocation of left hip arthroplasty prosthesis. Electronically Signed: Jose G Lewis MD at 23:57 EST ,
--- NOTE | 2023-05-05 23:50 | RAD_ITS ---
STUDY: X-RAY - PELVIS REASON FOR EXAM: Female, 72 years old patient presents after closed reduction of dislocated hip prosthesis. TECHNIQUE: One view of the pelvis was obtained. COMPARISON: Pelvic radiograph dated May 05 2023 time stamped 9:27 PM. FINDINGS: There is a non-specific bowel gas pattern. Normal visualized soft tissue structures. There is diffuse demineralization of the osseous structures. Normal visualized bilateral superior and inferior pubic rami. Normal pubic symphysis. Normal ischial tuberosities. Patient has bilateral total hip arthroplasties. There is now appropriate positioning of the LEFT femoral prosthesis within the acetabular prosthesis. RAD/Pelvis 1 or 2 Views IMPRESSION: Technically successful closed reduction of dislocated left hip prosthesis. Electronically Signed: Meredith Ramos MD at 0:30 EST ,
--- NOTE | 2023-05-06 01:26 | EDS_ITS ---
HPI History of Present Illness Chief Complaint: Lower Extremity Injury Informant: patient Narrative Narrative: Patient is a 72-year-old female with past medical history of hypertension diabetes morbid obesity diabetic neuropathy and bilateral hip prosthesis. She states that she was sitting in a chair reaching for a bottle of lotion when she felt that her hip popped out of place. She states that this would be the fourth time the hip has become dislocated with the most recent being about 4 years ago. She states that as she was sitting she did not fall or strike her head however based on the concern for dislocation she has had pain and cannot ambulate and therefore was brought to the hospital for further care [facility] Medical History (Updated 05/07/23 @ 02:[address] Viet Montaño, DO) Acute renal failure Atrial fibrillation CPAP (continuous positive airway pressure) dependence Depression Diabetes Diabetic neuropathy Hypertension Kidney disease Morbid obesity Osteoarthritis Sleep apnea Urinary incontinence Home Medications acetaminophen 325 mg tablet (Tylenol) 650 mg (2 x 325 mg) PO Q6H PRN PRN Pain Score 1-10/Temp > 100.7 F #0 tabs 05/05/21 [Rx Last Taken Unknown] atorvastatin 80 mg tablet 80 mg PO QHS cholesterol 06/20/22 [History Last Taken Unknown] carvedilol 12.5 mg tablet 12.5 mg PO BID htn 06/20/22 [History Last Taken Unknown] diclofenac sodium 1 % topical gel 1 ea topical 4X/DAY left hip pain 06/20/22 [History Last Taken Unknown] famotidine 20 mg tablet 20 mg PO BID indigestion 06/20/22 [History Last Taken Unknown] losartan 50 mg tablet 50 mg PO DAILY htn 06/20/22 [History Last Taken Unknown] metformin 500 mg tablet 500 mg PO BID dm 06/20/22 [History Last Taken Unknown] oxybutynin chloride 5 mg tablet 5 mg PO TID bladder 06/20/22 [History Last Taken Unknown] furosemide 40 mg tablet 40 mg PO DAILY 05/05/23 [History Last Taken Unknown] insulin glargine 100 unit/mL (3 mL) subcutaneous pen (Lantus Solostar U-100 Insulin) 15 unit subcut BREAKFAST 05/05/23 [History Last Taken Unknown] insulin lispro 100 unit/mL subcutaneous pen (Humalog KwikPen (U-100) Insulin) 15 unit subcut QHS 05/05/23 [History Last Taken Unknown] oxycodone-acetaminophen 5 mg-325 mg tablet 1 tab PO Q8H PRN pain 05/05/23 [History Last Taken Unknown] Allergy/AdvReac Type Severity Reaction Status Date / Time latex Allergy Rash Verified 05/05/23 20:52 nickel [Nickel] Allergy Rash Verified 05/05/23 20:52 Family History Other Diabetes Hypertension Surgical History (Updated 06/20/22 @ 13:22 by Michelle Figueroa) S/P hip replacement Social History Smoking Status: Never smoker alcohol intake: current alcohol intake frequency: 0-2 drinks per day substance use type: does not use ROS ROS ED Constitutional Constitutional ED: Denies chills or fever(s) ENT ENT ED: Denies sore throat Cardiovascular Cardiovascular: Denies chest pain Respiratory/Chest Respiratory/Chest: Denies cough or dyspnea Gastrointestinal Gastrointestinal: Denies abdominal pain, diarrhea, nausea or vomiting Genitourinary Genitourinary ED: Denies dysuria Musculoskeletal Musculoskeletal: Reports other Details: Positive left hip pain ; Denies myalgias Integumentary Denies Abrasions or rash Neurologic Neurologic: Reports paresthesias; Denies headache(s) Hematologic/Lymphatic Hematologic/Lymphatic: Denies easy bleeding or easy bruising EXAM Physical Exam Const Vital Signs: 05/05/23 20:48 05/05/23 22:55 05/05/23 22:45 Temperature 97.2 F L 98 F Temperature Source Temporal Pulse Rate 69 73 Pulse Rate [1 (Initial Baseline)] 76 Pulse Rate [3] 73 Pulse Rate [4] 78 Respiratory Rate 18 18 Respiratory Rate [1 (Initial Baseline)] 12 Respiratory Rate [3] 28 H Respiratory Rate [4] 17 Blood Pressure 148/69 H 131/78 H Blood Pressure [1 (Initial Baseline)] 140/81 H Blood Pressure [3] 125/107 H Blood Pressure [4] 128/74 H Blood Pressure Mean 95 Pulse Ox 96 99 Oxygen Delivery Method Room Air Oxygen Delivery Method [1 (Initial Baseline)] Nasal Cannula Oxygen Delivery Method [3] Nasal Cannula Oxygen Delivery Method [4] Nasal Cannula Oxygen Flow Rate (L/min) Oxygen Flow Rate (L/min) [1 (Initial Baseline)] 2 Oxygen Flow Rate (L/min) [3] 4 Oxygen Flow Rate (L/min) [4] 4 05/05/23 23:10 05/05/23 23:15 05/05/23 23:20 Temperature Temperature Source Pulse Rate Pulse Rate [1 (Initial Baseline)] Pulse Rate [3] Pulse Rate [4] Respiratory Rate Respiratory Rate [1 (Initial Baseline)] Respiratory Rate [3] Respiratory Rate [4] Blood Pressure Blood Pressure [1 (Initial Baseline)] Blood Pressure [3] Blood Pressure [4] Blood Pressure Mean Pulse Ox Oxygen Delivery Method Nasal Cannula Nasal Cannula Nasal Cannula Oxygen Delivery Method [1 (Initial Baseline)] Oxygen Delivery Method [3] Oxygen Delivery Method [4] Oxygen Flow Rate (L/min) 4 4 2 Oxygen Flow Rate (L/min) [1 (Initial Baseline)] Oxygen Flow Rate (L/min) [3] Oxygen Flow Rate (L/min) [4] 05/05/23 23:54 05/05/23 23:48 05/05/23 23:53 Temperature Temperature Source Pulse Rate Pulse Rate [1 (Initial Baseline)] 79 Pulse Rate [3] 78 Pulse Rate [4] Respiratory Rate Respiratory Rate [1 (Initial Baseline)] 19 H Respiratory Rate [3] 16 Respiratory Rate [4] Blood Pressure Blood Pressure [1 (Initial Baseline)] 138/81 H Blood Pressure [3] 148/81 H Blood Pressure [4] Blood Pressure Mean Pulse Ox Oxygen Delivery Method Room Air Room Air Oxygen Delivery Method [1 (Initial Baseline)] Nasal Cannula Oxygen Delivery Method [3] Nasal Cannula Oxygen Delivery Method [4] Oxygen Flow Rate (L/min) Oxygen Flow Rate (L/min) [1 (Initial Baseline)] 4 Oxygen Flow Rate (L/min) [3] 2 Oxygen Flow Rate (L/min) [4] 05/05/23 23:58 05/06/23 01:35 Temperature Temperature Source Pulse Rate 84 Pulse Rate [1 (Initial Baseline)] Pulse Rate [3] Pulse Rate [4] Respiratory Rate 16 Respiratory Rate [1 (Initial Baseline)] Respiratory Rate [3] Respiratory Rate [4] Blood Pressure 121/85 H Blood Pressure [1 (Initial Baseline)] Blood Pressure [3] Blood Pressure [4] Blood Pressure Mean 97 Pulse Ox 99 Oxygen Delivery Method Room Air Oxygen Delivery Method [1 (Initial Baseline)] Oxygen Delivery Method [3] Oxygen Delivery Method [4] Oxygen Flow Rate (L/min) Oxygen Flow Rate (L/min) [1 (Initial Baseline)] Oxygen Flow Rate (L/min) [3] Oxygen Flow Rate (L/min) [4] Positive well nourished, well developed and obese General Appearance ED: well developed; Negative for pallor Nutritional Appearance: obese HEENT Reports moist mucous membranes HEENT Narrative: No tongue or lip swelling no oral lesions no airway edema or compromise No signs of infection noted in the posterior pharynx Eyes PERRL and EOMs intact bilaterally Neck supple Resp normal respiratory effort and clear to auscultation bilaterally Resp Narrative: Breath sounds are diminished throughout but overall clear to auscultation without nasal flaring retractions tachypnea or accessory muscle use Cardio regular rate and regular rhythm Rate: other Other Details: Radial and carotid pulses are equal and symmetric GI non-tender and non-distended GI Narrative: Abdomen is soft nontender and nondistended with hypoactive bowel sounds No voluntary guarding or rigidity No pulsatile mass or fluid wave Auscultation: hypoactive bowel sounds Palpation: soft Extremity Extremity Narrative: Pelvis is stable and but there is shortening of the left lower extremity compared to right without any external rotation noted consistent with a hip dislocation. No obvious bony deformity or joint effusion. Neuro oriented x3 and CN's II-XII intact bilaterally Sensorium / Orientation: alert Psych mental status grossly normal Skin no rashes or lesions noted General Skin Exam: Negative for jaundice or pallor MDM MDM MDM Narrative Medical decision making narrative: Patient presented to the ER with stable vitals and reported pain and potential dislocation with a bending motion while sitting in the chair. She states she did not fall or strike her head. By exam she is neurovascularly intact and no signs of secondary infection such as cellulitis or abscess. In order to ensure that a dislocation was the true cause of her symptoms and not a periprosthetic fracture and x-ray was obtained. X-ray did confirm hardware to be intact without periprosthetic fracture but a dislocation was present of the left hip. Secondary to this patient underwent conscious sedation with closed reduction. I did take 2 attempts/2 different conscious sedation events in order to reduce the hip. However after it was successfully reduced as there is no periprosthetic fracture there is no need for further evaluation in the ER and patient is otherwise safe for discharge Patient underwent conscious sedation using 80 mg of propofol and 2.5 mg of Versed. Following this flexion and traction with abduction was applied to the joint. There was a clicking sound with improvement of leg length concerning/consistent with reduction so repeat x-ray was obtained but showed persistent dislocation. Therefore patient underwent a second round of conscious sedation using the same. A similar mechanism of reduction was applied and this time the reduction was successful. Confirmation was by x-ray. Patient underwent 2 rounds of conscious sedation each lasting approximately 10 minutes. She tolerated each procedure well without complication History & Record Review Discussion w/independent historian: Patient Radiography Diagnostic Testing: Clinical Impression(s) from Imaging Studies Hip/Pelvis X-Ray 05/05/23 21:35 IMPRESSION: Dislocation of left hip arthroplasty prosthesis. Electronically Signed: Jose G Lewis MD at 22:03 EST , Pelvis X-Ray 05/05/23 23:20 IMPRESSION: Persistent dislocation of left hip arthroplasty prosthesis. Electronically Signed: Jose G Lewis MD at 23:57 EST , Pelvis X-Ray 05/05/23 23:50 IMPRESSION: Technically successful closed reduction of dislocated left hip prosthesis. Electronically Signed: Meredith Ramos MD at 0:30 EST , Initial 1 view pelvis x-ray as interpreted by the emergency medicine physician reveals bilateral hip prosthesis with anterior dislocation of the left hip Repeat 1 view pelvis x-ray as interpreted by the emergency medicine physician after initial reduction attempt still shows persistent dislocation Third 1 view pelvis x-ray as interpreted by the emergency medicine physician reveals a successful reduction of the left hip dislocation without surrounding fracture or joint effusion Procedures Procedural Sedation 1 (Initial Baseline): Consent Signed: Yes Any Problems With Anesthesia: No You/Your family experience fever (hyperthermia) w/anesthesia: No Sedation medication: Versed Dose: 80 Route: IV Maliampati Score: Class II ASA Classification: III Comment:: Please note approximately 10 minutes of conscious sedation was used for the initial reduction attempt 2: Consent Signed: Yes Any Problems With Anesthesia: Yes You/Your family experience fever (hyperthermia) w/anesthesia: No Sedation medication: Versed Dose: 80 Maliampati Score: Class II ASA Classification: III Comment:: Please note another approximately 10 minutes of conscious sedation time was used for the second reduction attempt that was successful Discharge Plan Triage Chief Complaint: Lower Extremity Injury ED Provider: Viet Montaño Dx/Rx/DC Orders Clinical Impression: Dislocation of hip, left, closed, Diabetic neuropathy, Diabetes, Hypertension Instructions: ED Hip Replace Dislocation Reduc Prescriptions: No Action acetaminophen [Tylenol] 325 mg Tablet 650 mg PO Q6H PRN PRN (Reason: Pain Score 1-10/Temp > 100.7 F) Qty: 0 0RF losartan 50 mg Tablet 50 mg PO DAILY metformin 500 mg tablet 500 mg PO BID atorvastatin 80 mg tablet 80 mg PO QHS Patient Comments: 1 tablet by mouth as directed carvedilol 12.5 mg tablet 12.5 mg PO BID Patient Comments: 1 tablet by mouth as directed famotidine 20 mg tablet 20 mg PO BID Patient Comments: take 1 tablet by mouth twice a day oxybutynin chloride 5 mg tablet 5 mg PO TID Patient Comments: TAKE 1 TABLET BY MOUTH 3 TIMES A DAY diclofenac sodium 1 % gel 1 ea TOPICAL 4X/DAY insulin glargine [Lantus Solostar U-100 Insulin] 100 unit/mL (3 mL) insulin pen 15 unit subcut BREAKFAST insulin lispro [Humalog KwikPen Insulin] 100 unit/mL insulin pen 15 unit subcut QHS furosemide 40 mg tablet 40 mg PO DAILY oxycodone-acetaminophen 5-325 mg tablet 1 tab PO Q8H PRN (Reason: pain) Patient Comments: take 1 tablet by mouth every 8 hours if needed Primary Care Provider: FACUNDO LUCERO Referrals: FACUNDO LUCERO MD [Primary Care Provider] - Disposition Disposition: Home, Self Care Discharge Date/Time: 05/06/23 01:37
[2023-05-06 01:35] VITALS: BP 121/85; PULSE 84; RESP 16; O2SAT 99
== END 2023-05-06 01:37 | disposition home or self-care (01) ==
PROVIDERS: Emergency Provider Emergency Medicine; PCP Internal Medicine; Visit Provider Emergency Medicine
DX: S73.035A Other anterior dislocation of left hip, initial encounter (principal); E11.40 Type 2 diabetes mellitus with diabetic neuropathy, unspecified; E66.01 Morbid (severe) obesity due to excess calories; I10 Essential (primary) hypertension; Z96.643 Presence of artificial hip joint, bilateral; X58.XXXA Exposure to other specified factors, initial encounter
CPT/HCPCS: 27250; 72170; 73502; 96360; 96361; 99152; 99285; J7030